=== PATIENT | female | born 1940 | race Caucasian/White ===

== ENCOUNTER 2020-06-23 17:23 | Observation (INO) | payer MEDICARE, SELFPAY ==
--- NOTE | ~2020-06-23 | XR_ITS ---
EXAMINATION: XR chest 1V portable DATE: 06/23/2020 19:32 INDICATION: Hypertension. Dizziness. Syncope. TECHNIQUE: frontal view of the chest was obtained. COMPARISON: Chest radiograph dated 08/21/2018 FINDINGS: The lungs remain hyperexpanded. Linear discoid atelectasis/scarring in the medial right lower lung zo ne. No other airspace opacities, pulmonary edema, pleural effusion or pneumothorax. Heart size is nor mal. Atherosclerotic and tortuous thoracic aorta. Moderate lumbar dextroscoliosis with severe spondyl osis. Combined instrumented anterior and posterior spinal fusion at the lower cervical and upper thor acic spine. Multiple old bilateral rib fractures. IMPRESSION: 1. Linear discoid atelectasis/scarring at the right lower lung zone. No other evident acute cardiopul monary disease. Reviewed, dictated and finalized at location A. IMPRESSION: 1. Linear discoid atelectasis/scarring at the right lower lung zone. No other e vident acute cardiopulmonary disease.
--- NOTE | ~2020-06-23 | US_ITS ---
EXAMINATION: US carotid duplex BI DATE: 06/24/2020 15:28 INDICATION: Syncope. TECHNIQUE: Grayscale, color Doppler, and pulsed Doppler images of the cervical carotid arteries were obtained. The degree of vessel stenosis is placed in one of the following categories: normal, <50%, 5 0-69%, >=70% but less than near-occlusion, near-occlusion, or total occlusion. Note that percent sten osis relative to normal distal artery lumen diameter is indirectly measured from velocity measurement s as described by Darvin, et al. Radiology 2003; 229:340-346. COMPARISON: Ultrasound 07/24/2018 FINDINGS: RIGHT: The right common carotid artery (CCA) peak systolic velocity (PSV) is 72 cm/s. The right internal car otid artery (ICA) PSV is 73 cm/s. The right ICA end-diastolic velocity (EDV) is 22 cm/s. The right IC A/CCA PSV ratio is 1.0. Grayscale and color Doppler images yield an estimate of <50% diameter reducti on from plaque in the ICA. There is antegrade flow in the right vertebral artery. LEFT: The left CCA PSV is 80 cm/s. The left ICA PSV is 56 cm/s. The left ICA EDV is 16 cm/s. The left ICA/C CA PSV ratio is 0.7. Grayscale and color Doppler images yield an estimate of <50% diameter reduction from plaque in the ICA. There is antegrade flow in the left vertebral artery. IMPRESSION: 1. <50% stenosis in the right internal carotid artery. 2. <50% stenosis in the left internal carotid artery. Reviewed, dictated and finalized at location A.
--- NOTE | ~2020-06-23 | CT_ITS ---
EXAMINATION: CT brain wo con DATE: 06/23/2020 19:27 INDICATION: Dizziness TECHNIQUE: Computed tomography (CT) of the head was performed without intravenous contrast. Sagittal and coronal reconstructions were performed. The mA was adjusted according to patient size. Iterative reconstruction technique was employed. The dose-length product was 605.33 mGy-cm. COMPARISON: head CT dated 07/23/2018 FINDINGS: Unchanged chronic infarcts the largest in the right temporal occipital region with additional smaller infarcts in the right frontal and occipital lobes and right cerebellar hemisphere. No acute intracra nial hemorrhage, acute infarction or abnormal extra axial fluid collection. There is mild scattered w leonarda matter hypoattenuation consistent with chronic small vessel ischemic disease. Ventricles are no rmal and symmetric. No mass/mass effect. Changes of bilateral intraocular lens replacement. Tiny bila teral mastoid effusions. The paranasal sinuses are normal. Intracranial calcified cerebral atheroscle rosis is noted. IMPRESSION: 1. No acute intracranial process. 2. 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 3. Moderate scattered white matter hypoattenuation consistent with chronic small vessel ischemic dise ase. Reviewed, dictated and finalized at location A. IMPRESSION: 1. No acute intracranial process. 2. Stable appearance of several scattered small old right cerebral and cerebell ar infarcts. 3. Moderate scattered white matter hypoattenuation consistent with chronic smal l vessel ischemic disease.
--- NOTE | ~2020-06-23 | CT_ITS ---
EXAMINATION: CTA chest PE protocol DATE: 06/23/2020 20:23 INDICATION: Syncope. Elevated d-dimer. TECHNIQUE: Computed tomography (CT) pulmonary angiogram of the chest was performed with 100 mL Omnipa que-350 intravenous contrast. Additional 3D reconstructions utilizing coronal maximum intensity proje ction (MIP) were performed. Automated exposure control and iterative reconstruction technique were em ployed. The dose-length product was 169.60 mGy-cm. COMPARISON: None FINDINGS: Excellent contrast opacification of the pulmonary arteries. There is mild streak artifact from dense contrast in the superior vena cava and right atrium. Mild scattered respiratory motion artifact which does not significantly limit evaluation. No pulmonary embolism. Mild emphysema. Pleural parenchymal scarring at the left apex. Small cluster of small nodules with tree-in-bud appearance in the right up per lobe likely infectious/inflammatory in etiology. Bands of discoid atelectasis/scarring in the janine ateral lower lobes. Heart size is normal. Atherosclerotic coronary artery calcification. No pericardi al effusion. Tortuous thoracic aorta which is normal in caliber with no dissection. No pathologically enlarged thoracic lymphadenopathy. Small sliding-type hiatal hernia. Instrumented anterior and poste rior spinal fusion extending from the midcervical into the upper thoracic spine. Chronic T4 and T7 co mpression fractures. Partially visualized lumbar dextro scoliosis with severe spondylosis. IMPRESSION: 1. No pulmonary embolism. 2. Small region of tree-in-bud opacity in the right upper lobe of indeterminate chronicity which is l ikely infectious/inflammatory in etiology. 3. Mild emphysema. 4. Small sliding-type hiatal hernia. Reviewed, dictated and finalized at location A. IMPRESSION: 1. No pulmonary embolism. 2. Small region of tree-in-bud opacity in the right upper lobe of indeterminate chronicity which is likely infectious/inflammatory in etiology. 3. Mild emphysema. 4. Small sliding-type hiatal hernia.
--- NOTE | 2020-06-23 17:32 | ECG_ITS ---
Measurements Intervals [place] Rate: 50 P: 48 ID: [id number] QRS: -58 QRSD: 94 T: 50 QT: 473 QTc: 433 Interpretive Statements SINUS BRADYCARDIA LEFT ANTERIOR FASCICULAR BLOCK BORDERLINE T WAVE ABNORMALITY- ANTERIOR LEADS BASELINE ARTIFACT- I, II, III, AVR, AVL, AVF, V1-V5 ABNORMAL ECG Electronically Signed On 06-23-2020 19:31:44 CDT by Thomas Peterson D.O.
[2020-06-23 17:37] VITALS: BP 154/95; PULSE 58; RESP 16; TEMP 36.9; O2SAT 100
[2020-06-23 17:43] LABS: Basophils Absolute Auto 0.1 K/mm3 (0.0-0.1); Basophils Percent Auto 0.9 % (0.2-1.2); Eosinophils Absolute Auto 0.1 K/mm3 (0-0.3); Eosinophils Percent Auto 2.4 % (0-4.4); Hematocrit 38.3 % (37.0-47.0); Hemoglobin 12.8 g/dL (12.0-15.0); Immature Granulocyte Absolute 0.01 K/mm3 (0.00-0.031); Immature Granulocyte Percent A 0.2 % (0-0.5); Lymphocytes Absolute Auto 1.86 K/mm3 (0.9-3.2); Lymphocytes Percent Auto 33.6 % (18.3-44.2); Mean Corpuscular HGB Conc 33.4 g/dl (32-36); Mean Corpuscular Hemoglobin 31.1 pg (26-34); Mean Corpuscular Volume 93.2 fl (80-100); Monocytes Absolute Auto 0.4 K/mm3 (0.1-0.6); Neutrophils Percent Auto 54.9 % (45.5-73.1); Platelet Count Result 162 k/mm3 (150-375); Red Blood Count 4.11 M/mm3 (4.2-5.4); Red Cell Distribution Width 12.3 % (11.5-14.5); White Blood Count 5.5 K/mm3 (4.5-10.0)
[2020-06-23 17:53] LABS: Anion Gap 9 mmol/L (8-16); Blood Urea Nitrogen 23 mg/dL (7-17); Calcium 8.9 mg/dL (8.4-10.2); Carbon Dioxide 27 mmol/L (22-30); Chloride 100 mmol/L (98-107); Estimated CRCL calculation 45 ml/min; Estimated Glomerular Filt Rate > 60; Glucose 101 mg/dL (65-105); Potassium 3.8 mmol/L (3.4-5.0); Sodium 136 mmol/L (137-145)
--- NOTE | 2020-06-23 18:53 | ED.GENADULT ---
HPI - General Adult General Chief complaint: Dizziness Stated complaint: AMS Time Seen by Provider: 06/23/20 18:36 Source: patient Mode of arrival: ambulatory Limitations: no limitations History of Present Illness HPI narrative: Patient is a 79-year-old female who presents from assisted living per EMS for evaluation of syncopal episode that occurred while at the dinner table patient was eating later head down was unresponsive for a brief period of time regained her consciousness and presents per EMS noting only mild headache and dizziness as her symptoms. Patient had felt fine in the days preceding patient is accompanied by her son who has been in contact with her. Patient on arrival is in no distress and denies any other pain or complaints. Patient denies injury or trauma Related Data Home Medications Medication Instructions Recorded Confirmed acetaminophen 325 mg capsule 325 mg PO Q6H PRN 07/30/19 01/28/20 alendronate 70 mg tablet 70 mg PO WEEKLY 07/30/19 01/28/20 trazodone 100 mg tablet 100 mg PO DAILY tablet 02/27/20 tiotropium bromide [Spiriva with 1 cap INHALATION DAILY 06/23/20 HandiHaler] Allergies Allergy/AdvReac Type Severity Reaction Status Date / Time No Known Allergies Allergy Verified 06/23/20 18:26 Review of Systems Review of Systems: All systems reviewed & are unremarkable except as noted in HPI and below PMFSH Past Medical History Medical History Essential hypertension Headache Family History Family History (Updated 05/10/18 @ 15:27 by DOCTOR UNKNOWN) Father Family history of lung cancer Social History Social History Smoking status: Former smoker Smoking end date: 09/25/10 Alcohol intake: current Gender identity (if verbalized by the patient): Female Exam Narrative: Exam Narrative: GENERAL Ill-appearing, well-nourished, and in no acute distress. HEAD: Normocephalic, atraumatic. EYES: PERRLA and EOMI. ENT: Nares clear, no rhinorrhea or epistaxis. Mucous membranes moist. Oropharynx without tonsillar hypertrophy exudate or other lesions. NECK: Supple. No adenopathy or masses. No carotid bruits or JVD CHEST: Clear to auscultation. No respiratory distress. No wheezes rales or rhonchi HEART: Regular rate and rhythm. No murmur heard. Normal peripheral pulses. ABDOMEN: Soft, nontender, nondistended EXTREMITIES: Normal range of motion. No edema. SKIN: Warm, dry, no rash. NEURO: No focal deficits. Alert and oriented x3. Cranial nerves II through XII grossly. Normal speech. Motor and sensory intact and symmetrical in the extremities. Cerebellar intact. No pronator drift PSYCH: Normal mood and affect. Course Course Emergency Course: Patient in the room at this time resting comfortably has been hydrated noting slight dizziness patient will be placed in hospital for continued observation on telemetry for her syncope and hydrated no other concerning findings or symptoms at this time patient has remained stable patient and family agree to this plan Consultations Consultation #1: Discussed case with hospitalist who is agreed to accept the patient once hydration only on telemetry no antibiotics at this time Date: 06/23/20 Time: 21:22 Vital Signs Vital signs: Vital Signs Temperature 98.4 F 06/23/20 17:37 Pulse Rate 58 L 06/23/20 17:37 Respiratory Rate 16 06/23/20 17:37 Blood Pressure 154/95 H 06/23/20 17:37 Pulse Oximetry 100 06/23/20 17:37 Temperature 98.4 F 06/23/20 17:37 Pulse Rate 58 L 06/23/20 17:37 Respiratory Rate 16 06/23/20 17:37 Blood Pressure 154/95 H 06/23/20 17:37 Pulse Oximetry 100 06/23/20 17:37 Medical Decision Making [facility] Narrative Medical decision making narrative: patient in the room at this time resting comfortably will be placed in hospital for observation given her syncope patient continues to have dizzi
[2020-06-23] MEDS: SODIUM CHLORIDE 0.9% IV 1,000 ML 999 ML IV CONT (18:55)
[2020-06-23 19:30] LABS: INR 1.1; Prothrombin Time 13.7 Seconds (11.1-14.7)
[2020-06-23 19:31] LABS: Partial Thromboplastin Time 30.7 SECONDS (22.3-36.8)
[2020-06-23 19:33] LABS: D Dimer 0.57 ug/mL (<0.48)
[2020-06-23 19:39] LABS: Troponin I < 0.012 ng/mL (0.000-0.034)
[2020-06-23 20:36] LABS: Add Urine Microscopic? YES; Appearance Urine Cloudy (Clear); Bilirubin Urine Negative (Negative); Blood Urine 1+ (Negative); Color Urine Yellow (Yellow); Glucose Urine UA Negative (Negative); Ketones Urine Negative (Negative); Leukocyte Esterase Ur Trace LEU/UL (Negative); Mucus Urine Rare /lpf; Nitrate Urine Positive (Negative); Protein Urine Negative (Negative); RBC Urine 0-2 /hpf (0-2); Squamous Epithelial Cell Urine Few /hpf (Few)
[2020-06-23 21:17] VITALS: BP 151/77; PULSE 70
[2020-06-23 21:18] VITALS: BP 133/104; BP 136/97; PULSE 81; PULSE 89
[2020-06-23 22:19] LABS: Troponin I < 0.012 ng/mL (0.000-0.034)
[2020-06-23 22:35] VITALS: BP 141/79; PULSE 88; RESP 16; TEMP 36.7; O2SAT 96
--- NOTE | 2020-06-23 22:44 | ADMGEN ---
This patient, Keshia Moy, was admitted to Medical Room 249-. Patient/family oriented to hospital policies and general routines including ID bracelet, bed and alarms, visiting hours, pain management, procedures, bathroom and other care routines, personal items, smoking policy, room service/diet, and visiting hours. Valuables list has been completed. Information on how to activate the Rapid Response Team has been discussed. Patient/Family are encouraged to report perceived risks to care and to ask questions if they do not understand what they are told or what they should do.
[2020-06-23] MEDS: LACTATED RINGERS 1,000 ML 80 ML IV CONT (23:11)
[2020-06-23 23:24] VITALS: BMI 20.4
[2020-06-23 23:25] VITALS: BP 137/67; PULSE 53; RESP 18; TEMP 36.2; O2SAT 98
--- NOTE | 2020-06-23 23:45 | PM.IMHP ---
H&P: HPI History of Present Illness Date/Time: 06/23/20 23:45 Chief complaint: syncope, dehydration Narrative: This is a pleasant 79-year-old female with known history of hypertension who presented to the hospital with a complaint of a brief syncopal event that happened today. Apparently the patient was eating dinner when suddenly she felt dizzy put her head down on the table and her family lowered her to the floor she remembers being lowered to the floor and states that she was only briefly unconscious. She denied any chest pain or shortness of breath prior to her syncopal event. On further questioning she is wondering if she even really passed out. She describes having a similar event about 10 years ago when she was hospitalized which did not result in any significant pathology. Today the patient denies any other associated symptoms such as fever, chills, chest pain, palpitations, shortness of breath, cough, sore throat, abdominal pain, nausea, vomiting, diarrhea, rectal bleeding, or lower extremity swelling. Patient denies any focal neurological deficits such as focal weakness, numbness, or tingling. The patient also denies any recent head trauma, or blurry vision. she has been taking her medications as prescribed and denies any new medications or stopping any home medications. Patient was evaluated in the emergency room today routine labs were obtained which were virtually unremarkable brain CT was unremarkable. We been asked admit the patient hospital for observation for her syncopal event. She has no other complaints this time. Review of Systems Review of Systems: All systems reviewed & are unremarkable except as noted in HPI and below PMFSH Past Medical History Medical History (Updated 06/24/20 @ 03:32 by Noam Cordero MD) Essential hypertension Headache Surgical History Surgical History (Updated 06/23/20 @ 23:48 by Noam Cordero MD) History of neck surgery Social History Social History Smoking packs per day: 0.5 Smoking cigarettes per day: 10.0 Years smoked: 10 Smoking pack-years: 5.00 Smoking status: Former smoker Tobacco type: cigarettes Smoking end date: 09/25/10 Alcohol intake: never Substance use: never Gender identity (if verbalized by the patient): Female Spiritual care concerns: No Meds Home Medications and Allergies Home Medications Medication Instructions Recorded Confirmed Type acetaminophen 325 mg capsule 325 mg PO Q6H PRN 07/30/19 06/23/20 History alendronate 70 mg tablet 70 mg PO WEEKLY 07/30/19 06/23/20 History aspirin 81 mg chewable tablet 81 mg PO DAILY #90 tablet 10/17/19 06/23/20 Rx escitalopram oxalate 10 mg tablet 10 mg PO DAILY #90 tablet 01/16/20 06/23/20 Rx omeprazole 20 mg capsule,delayed 20 mg PO DAILY #90 cap 01/16/20 06/23/20 Rx release amlodipine 5 mg tablet 5 mg PO DAILY #90 tablet 02/12/20 06/23/20 Rx trazodone 100 mg tablet 100 mg PO DAILY tablet 02/27/20 06/23/20 History albuterol sulfate 2.5 mg INHALATION TID PRN 06/23/20 06/23/20 History tiotropium bromide [Spiriva with 1 cap INHALATION DAILY 06/23/20 06/23/20 History HandiHaler] Allergies Allergy/AdvReac Type Severity Reaction Status Date / Time No Known Allergies Allergy Verified 06/23/20 18:26 Vital Signs Vital Signs - 24 hr 06/23/20 17:37 06/23/20 21:17 06/23/20 21:18 Temperature 36.9 C Pulse Rate 58 L 70 89 Respiratory Rate 16 Blood Pressure 154/95 H 151/77 H 136/97 H Pulse Oximetry 100 06/23/20 22:35 06/23/20 23:25 Temperature 36.7 C 36.2 C L Pulse Rate 88 53 L Respiratory Rate 16 18 Blood Pressure 141/79 H 137/67 Pulse Oximetry 96 98 Exam Const: General: cooperative, no acute distress, alert and awake Nutritional Appearance: well nourished Orientation/consciousness: patient oriented x3 HENMT: Head: normal to inspection General nose exam: Normal external nose present F
[2020-06-24] VITALS (8 sets, daily range): BP systolic 136–167; BP diastolic 69–93; PULSE 54–82; RESP 16–18; TEMP 36.2–36.8; O2SAT 96–99
[2020-06-24 06:33] LABS: Basophils Percent Auto 0.9 % (0.2-1.2); Eosinophils Absolute Auto 0.1 K/mm3 (0-0.3); Eosinophils Percent Auto 2.5 % (0-4.4); Hematocrit 38.6 % (37.0-47.0); Hemoglobin 13.2 g/dL (12.0-15.0); Immature Granulocyte Absolute 0.02 K/mm3 (0.00-0.031); Immature Granulocyte Percent A 0.5 % (0-0.5); Lymphocytes Absolute Auto 1.32 K/mm3 (0.9-3.2); Lymphocytes Percent Auto 30.3 % (18.3-44.2); Mean Corpuscular HGB Conc 34.2 g/dl (32-36); Mean Corpuscular Hemoglobin 31.7 pg (26-34); Mean Corpuscular Volume 92.6 fl (80-100); Mean Platelet Volume 9.9 fl (7.4-10.4); Monocytes Absolute Auto 0.4 K/mm3 (0.1-0.6); Monocytes Percent Auto 9.6 % (2.6-8.5); Neutrophils Absolute Auto 2.5 K/mm3 (1.3-6.7); Neutrophils Percent Auto 56.2 % (45.5-73.1); Platelet Count Result 148 k/mm3 (150-375); Red Blood Count 4.17 M/mm3 (4.2-5.4); Red Cell Distribution Width 12.3 % (11.5-14.5); White Blood Count 4.4 K/mm3 (4.5-10.0)
[2020-06-24 06:45] LABS: Alanine Aminotransferase 9 U/L (4-35); Alkaline Phosphatase 54 U/L (38-126); Anion Gap 7 mmol/L (8-16); Aspartate Amino Transferase 20 U/L (14-36); Bilirubin,Total 0.3 mg/dL (0.2-1.3); Blood Urea Nitrogen 14 mg/dL (7-17); Calcium 9.1 mg/dL (8.4-10.2); Carbon Dioxide 29 mmol/L (22-30); Chloride 105 mmol/L (98-107); Estimated CRCL calculation 55 ml/min; Estimated Glomerular Filt Rate > 60; Glucose 93 mg/dL (65-105); Potassium 3.9 mmol/L (3.4-5.0); Sodium 141 mmol/L (137-145)
[2020-06-24] MEDS: ASPIRIN 81 MG CHEWABLE TABLET PO (08:16)
[2020-06-24] MEDS: FAMOTIDINE 20 MG/2 ML VIAL IV PUSH (08:16)
[2020-06-24] MEDS: PANTOPRAZOLE SOD SESQUIHYDRATE 20 MG TAB PO (08:16)
[2020-06-24] MEDS: amLODIPine BESYLATE 5 MG TABLET PO (09:05)
--- NOTE | 2020-06-24 16:43 | PM.DS ---
DS: Admitting Diagnosis Admitting Diagnosis Admitting Diagnosis: syncope, dehydration DS: Discharge Diagnosis Discharge Diagnosis (1) Syncope: Qualifiers: Syncope type: unspecified Qualified Code(s): R55 - Syncope and collapse Code(s): R55 - Syncope and collapse Status: Acute Assessment and Plan: Patient had a brief syncopal episode on 06/23/2020 in which she felt lightheaded while sitting down at dinner and rested her head on table with brief LOC. She denies any history of syncope. Possibly vasovagal, postural, or secondary to dehydration. She was rehydrated with IV fluids. She was monitored on telemetry and fall precautions were in place. Head CT showed no acute findings with evidence of old infarcts, carotid doppler with <50% stenosis in bilateral ICA, and echo with normal EF and grade I diastolic dysfunction with no valvular disease. TSH wnl. Suspect vasovagal syncope. (2) Essential hypertension: Code(s): I10 - Essential (primary) hypertension Status: Chronic Assessment and Plan: Blood pressures stable in the 140-150s. She is not on any antihypertensive agents. (3) Abnormal urinalysis: Code(s): R82.90 - Unspecified abnormal findings in urine Status: Acute Assessment and Plan: UA with positive nitrates and trace leukocyte esterase. She remained asymptomatic and had no signs or symptoms of acute infection. No reflex culture was performed. (4) Orthostatic hypotension: Code(s): I95.1 - Orthostatic hypotension Status: Acute Assessment and Plan: Patient noted to be orthostatic, however was asymptomatic with positional changes. She was given Damir hose and educated extensively about importance of maintaining adequate hydration, avoiding overheating, wearing compression stockings, and fall precautions. She will need to follow up with PCP. DS: Summary Hospital Course Reason for hospitalization: Syncope Hospital Course: Date of admission: 06/23/2020 Date of discharge: 06/24/2020 Keshia Moy is a 79 year old female with a history of hypertension who resides in assisted living who presented to the emergency department on 06/23/2020 after a brief episode of syncope while at the dinner table in which she briefly lost consciousness and afterward complained of dizziness and headache. At presentation, vital signs stable, WBC 5.5, Hgb 12.8, Hct 38.3, plt 162, electrolytes stable, troponin negative, EKG with sinus bradycardia, and head CT as described above. She was admitted to the hospitalist service for further observation. Additional workup pursued as noted. Please see above for further details. Syncope was likely vasovagal in origin. She began feeling much better and was quite eager for discharge. Given her overall stability from medical standpoint, she was determined to no longer require inpatient care. We discussed lifestyle changes including hydration and fall precautions. Her trazodone was stopped due to risk for dizziness and/or syncope and she will need to follow-up on this with her PCP. We discussed worrisome signs and symptoms for which to return, importance of proper hospital follow-up, and she was educated on her medications. She was discharged in hemodynamically stable condition on 06/24/2020. Status at Discharge Functional status at discharge: uses cane/walker Overall status at discharge: patient is progressing back to baseline Time Spent with Patient Time attestation: Total time spent providing and/or coordinating discharge services:45 minutes Time spent: Greater than 30 minutes Exam Narrative: Exam Narrative: Ms. Moy is a well nourished 79-year-old female who is lying semi-recumbent in bed. She appears comfortable and is in NARD. HR 54, BP 150/83, RR 18, T 97.2, 98% on room air Neuro: awake, alert and oriented x4, speech clear, no focal neuro deficits noted, strength 5/5, normal sensation HEENMT: normocephalic, atraumatic, EOMI
--- NOTE | 2020-06-24 23:50 | ECHO_ITS ---
Patient Info Name: Keshia Moy Age: 79 years : 1940 Gender: Female Ht: 64 in Wt: 119 lbs BSA: 1.56 m2 HR: 75 bpm BP: 150 / 83 mmHg Heart Rhythm: Sinus Rhythm Technical Quality: Good Exam Date: 06/24/2020 10:14 AM Exam Location: [facility] Pulmonary Patient Status: Inpatient Admit Date: 06/23/2020 Staff Ordering Physician: Noam Cordero MD Consulting Services Project Manager: Chaka Alvarenga RDCS Attending Provider: Eugenie Cheney PA-C Referring Physician: Gil TERRAZAS; Exam Type: CA echo doppler color flow Study Info Indications R55 - Syncope and collapse Complete two-dimensional, color flow and Doppler transthoracic echocardiogram is performed. History/Risk Factors Syncope and HTN. Summary 1. Complete two-dimensional, color flow and Doppler transthoracic echocardiogram is performed. 2. Left ventricular chamber dimension is normal. 3. Left ventricular systolic function is normal, estimated at 60-65%. 4. The left ventricular diastolic function is grade I diastolic dysfunction. 5. E/e' 17 is elevated. Left Ventricle E/e' 17 is elevated. Left ventricular chamber dimension is normal. Left ventricular systolic function is normal, estimated at 60-65%. The left ventricular diastolic function is grade I diastolic dysfunction. Right Ventricle Right ventricular chamber dimension is normal. Right ventricular systolic function is normal. Left Atria Left atrial chamber dimension is normal. Right Atria Right atrial chamber dimension is normal. Aortic Valve The aortic valve is trileaflet. There is no aortic valve stenosis. There is no aortic valve regurgitation. Pulmonic Valve There is no pulmonic regurgitation. Mitral Valve There is no mitral valve stenosis. There is no mitral valve regurgitation. Tricuspid Valve There is no tricuspid valve regurgitation. Pericardium/Pleural There is no pericardial effusion. Aorta The aortic root size at the sinus of Valsalva is normal. Left Ventricular Outflow Tract Name Value Normal LVOT 2D LVOT Diameter 2.0 cm LVOT Doppler LVOT Peak Gradient 8 mmHg LVOT Mean Gradient 4 mmHg LVOT VTI 33 cm LVOT VTI/AV VTI Ratio 0.9 LVOT Stroke Volume 100 ml LVOT CO 5.5 l/min LVOT CI 3.5 l/min/m2 Mitral Valve Name Value Normal MV Doppler MV Decel Mcclain 298 cm/s2 MV PHT 82 ms MV Area (PHT) 2.7 cm2 4.0-5.0 MV Diastolic Function MV E Peak Velocity 85 cm/s MV A Peak Velocity 97
== END 2020-06-24 18:23 ==
LOC: ANHED 21:46 → ANH2MED 06-24 06:39
PROVIDERS: Emergency Medicine; Emergency Medicine Emergency Medical Services; Admitting Provider Family Medicine; Emergency Provider Emergency Medicine; PCP Internal Medicine; Visit Provider Family Medicine
DX: R55 Syncope and collapse (principal); R42 Dizziness and giddiness; R82.90 Unspecified abnormal findings in urine; I10 Essential (primary) hypertension; R94.31 Abnormal electrocardiogram [ECG] [EKG]; Z86.73 Personal history of transient ischemic attack (TIA), and cerebral infarction without residual deficits; R91.8 Other nonspecific abnormal finding of lung field; J43.9 Emphysema, unspecified; K44.9 Diaphragmatic hernia without obstruction or gangrene; Z87.891 Personal history of nicotine dependence; I65.23 Occlusion and stenosis of bilateral carotid arteries
CPT/HCPCS: 36415; 70450; 71045; 71275; 80048; 80053; 81001; 84443; 84484; 85025; 85380; 85610; 85730; 93005; 93306; 93880; 94640; 96361; 96374; 99285; A9270; G0378; J7030; J7120; Q9967

== ENCOUNTER 2020-09-20 17:03 | Emergency (ER) | payer MEDICARE, SELFPAY ==
[2020-09-20] VITALS (13 sets, daily range): BP systolic 117–131; BP diastolic 69–100; PULSE 56–79; RESP 14–26; TEMP 36.3; O2SAT 96–98
--- NOTE | 2020-09-20 17:32 | ECG_ITS ---
Measurements Intervals [place] Rate: 58 P: 61 [place]: 153 QRS: 66 QRSD: 87 T: 35 QT: 458 QTc: 452 Interpretive Statements SINUS BRADYCARDIA T WAVE ABNORMALITY IN ANTERIOR LEADS- CONSDIER ISCHEMIA ABNORMAL ECG Electronically Signed On 09-21-2020 10:43:07 TSA SCREENER by Thomas Peterson D.O.
[2020-09-20 18:04] LABS: Basophils Percent Auto 0.6 % (0.2-1.2); Eosinophils Absolute Auto 0.1 K/mm3 (0-0.3); Hematocrit 39.1 % (37.0-47.0); Hemoglobin 13.3 g/dL (12.0-15.0); Immature Granulocyte Absolute 0.02 K/mm3 (0.00-0.031); Immature Granulocyte Percent A 0.3 % (0-0.5); Lymphocytes Absolute Auto 1.37 K/mm3 (0.9-3.2); Lymphocytes Percent Auto 19.2 % (18.3-44.2); Mean Corpuscular Hemoglobin 31.4 pg (26-34); Mean Corpuscular Volume 92.4 fl (80-100); Mean Platelet Volume 9.5 fl (7.4-10.4); Monocytes Absolute Auto 0.5 K/mm3 (0.1-0.6); Monocytes Percent Auto 7.4 % (2.6-8.5); Neutrophils Percent Auto 70.5 % (45.5-73.1); Platelet Count Result 163 k/mm3 (150-375); Red Blood Count 4.23 M/mm3 (4.2-5.4); Red Cell Distribution Width 12.3 % (11.5-14.5); White Blood Count 7.1 K/mm3 (4.5-10.0)
--- NOTE | 2020-09-20 18:07 | ED.SYNCOPE ---
HPI - Syncope General Chief Complaint: Syncope Stated Complaint: syncope Time Seen by Provider: 09/20/20 18:04 History of Present Illness HPI narrative: 79 yo female brought in by EMS for syncope. She was sitting playing dominoes when she began to feel light headed. She then briefly lost consciousness. Bood pressure for EMS was initially low. Fluids were started. On my evaluation she reports that she is feeling well and has no complaints. She reports that she had one similar episode in the recent past. At that time she was admitted to the hospital and no cause was found. Related Data Home Medications Medication Instructions Recorded Confirmed acetaminophen 325 mg capsule 325 mg PO Q6H PRN 07/30/19 07/21/20 aspirin 81 mg tablet,delayed 81 mg PO DAILY 07/21/20 07/21/20 release albuterol sulfate 2.5 mg INHALATION TID ml 09/07/20 cholecalciferol (vitamin D3) 25 25 mcg PO DAILY 09/07/20 mcg (1,000 unit) tablet diphenhydramine HCl 25 mg capsule 25 mg PO .qhs PRN cap 09/07/20 melatonin 5 mg tablet 10 mg PO QPM tablet 09/07/20 trazodone 100 mg tablet 100 mg PO .qhs tablet 09/07/20 Allergies Allergy/AdvReac Type Severity Reaction Status Date / Time No Known Allergies Allergy Verified 09/20/20 17:28 Review of Systems Review of Systems: All systems reviewed & are unremarkable except as noted in HPI and below Constitutional: Constitutional: Denies chills, Denies fatigue, Denies fever(s) and Denies weakness ENT: Denies sore throat Cardiovascular: Cardiovascular: Denies chest pain Respiratory: Respiratory: Denies dyspnea Gastrointestinal: Gastrointestinal: Denies abdominal pain and Denies nausea Genitourinary: Genitourinary: Denies hematuria, Reports nocturia and Denies dysuria Musculoskeletal: Musculoskeletal: Denies back pain Neurologic: Denies confusion, Reports syncope, Denies numbness and Denies weakness [facility] Past Medical History Medical History Essential hypertension Headache Surgical History Surgical History History of neck surgery Family History Family History Father Family history of lung cancer Social History Social History Smoking packs per day: 0.5 Smoking cigarettes per day: 10.0 Years smoked: 10 Smoking pack-years: 5.00 Smoking status: Former smoker Tobacco type: cigarettes Smoking end date: 09/25/10 Alcohol intake: never Substance use: never Gender identity (if verbalized by the patient): Female Spiritual care concerns: No Exam Const: General: healthy appearing, no acute distress and alert Orientation/consciousness: patient oriented x3 HENMT: Head: normal to inspection Eyes: Pupils: Equal, round and reactive pupils present EOM: EOMs intact bilaterally Neck: Neck: normal visual inspection Resp: Effort & Inspection: normal respiratory effort Auscultation: clear to auscultation bilaterally, no rales, no rhonchi and no wheezes Cardio: Jugular venous distension: no JVD Rate: regular rate Rhythm: regular rhythm Heart sounds: no murmurs GI: Inspection: non-distended GI Palp: Yes Soft to palpation and No Tenderness to palpation present (GI) Skin: General skin exam: normal color Neuro: General: patient oriented x3, moves all extremities, no focal motor deficits and CN's II-XI intact bilaterally Cranial nerves: Yes Nystagmus not present Speech: normal speech Gait exam (Neuro): Normal gait present Extrem: General: normal to inspection and no edema Psych: Appearance: grossly normal and well kempt Mental Status: mental status grossly normal Affect: normal affect Attitude: cooperative Course Vital Signs Vital signs: Vital Signs Temperature 36.3 C L 09/20/20 17:14 Pulse Rate 65 09/20/20 17:14 Respiratory Rate
[2020-09-20 18:16] LABS: Anion Gap 7 mmol/L (8-16); Blood Urea Nitrogen 28 mg/dL (7-17); Calcium 8.5 mg/dL (8.4-10.2); Carbon Dioxide 28 mmol/L (22-30); Chloride 100 mmol/L (98-107); Estimated Glomerular Filt Rate 43; Glucose 100 mg/dL (65-105); Potassium 3.8 mmol/L (3.4-5.0); Sodium 135 mmol/L (137-145)
--- NOTE | 2020-09-20 18:18 | PC.NURSE ---
Dr. James at bedside for exam.
[2020-09-20] MEDS: SODIUM CHLORIDE 0.9% IV 500 ML 999 ML IV CONT (18:42)
[2020-09-20 18:52] LABS: Basophils Percent Auto 0.3 % (0.2-1.2); Eosinophils Absolute Auto 0.1 K/mm3 (0-0.3); Eosinophils Percent Auto 0.9 % (0-4.4); Hematocrit 40.8 % (37.0-47.0); Hemoglobin 13.7 g/dL (12.0-15.0); Immature Granulocyte Absolute 0.04 K/mm3 (0.00-0.031); Immature Granulocyte Percent A 0.4 % (0-0.5); Lymphocytes Absolute Auto 1.05 K/mm3 (0.9-3.2); Lymphocytes Percent Auto 10.2 % (18.3-44.2); Mean Corpuscular HGB Conc 33.6 g/dl (32-36); Mean Corpuscular Hemoglobin 31.2 pg (26-34); Mean Corpuscular Volume 92.9 fl (80-100); Mean Platelet Volume 9.4 fl (7.4-10.4); Monocytes Absolute Auto 0.6 K/mm3 (0.1-0.6); Monocytes Percent Auto 6.2 % (2.6-8.5); Neutrophils Absolute Auto 8.4 K/mm3 (1.3-6.7); Platelet Count Result 155 k/mm3 (150-375); Red Blood Count 4.39 M/mm3 (4.2-5.4); Red Cell Distribution Width 12.3 % (11.5-14.5); White Blood Count 10.3 K/mm3 (4.5-10.0)
[2020-09-20 19:04] LABS: Alanine Aminotransferase 9 U/L (4-35); Albumin Level 3.6 g/dL (3.5-5.1); Alkaline Phosphatase 64 U/L (38-126); Anion Gap 7 mmol/L (8-16); Aspartate Amino Transferase 21 U/L (14-36); Bilirubin,Total 0.6 mg/dL (0.2-1.3); Blood Urea Nitrogen 29 mg/dL (7-17); Calcium 8.6 mg/dL (8.4-10.2); Carbon Dioxide 27 mmol/L (22-30); Chloride 101 mmol/L (98-107); Estimated Glomerular Filt Rate 48; Glucose 105 mg/dL (65-105); Potassium 4.2 mmol/L (3.4-5.0); Sodium 135 mmol/L (137-145)
[2020-09-20 19:14] LABS: Add Urine Microscopic? YES; Appearance Urine Cloudy (Clear); Bacteria Urine Trace /hpf; Bilirubin Urine 1+ (Negative); Blood Urine Negative (Negative); Color Urine Amber (Yellow); Glucose Urine UA Negative (Negative); Ketones Urine Trace mg/dL (Negative); Leukocyte Esterase Ur 2+ LEU/UL (Negative); Mucus Urine Rare /lpf; Nitrate Urine Positive (Negative); Protein Urine 1+ mg/dL (Negative); Specific Grav Ur 1.018 (1.001-1.035); Squamous Epithelial Cell Urine Few /hpf (Few); WBC Urine 21-30 /hpf
--- NOTE | 2020-09-20 19:15 | PC.NURSE ---
Report to JUAN Eduardo, to continue care.
== END 2020-09-20 20:27 ==
PROVIDERS: Emergency Medicine; Emergency Provider Emergency Medicine; PCP Internal Medicine
DX: N39.0 Urinary tract infection, site not specified (principal); R55 Syncope and collapse; Z79.82 Long term (current) use of aspirin; I10 Essential (primary) hypertension; Z87.891 Personal history of nicotine dependence
CPT/HCPCS: 36415; 80048; 80053; 81001; 85025; 87077; 87086; 87088; 87186; 93005; 96365; 99284; J0696; J7040

== ENCOUNTER 2021-04-27 09:12 | Outpatient (CLI) | payer MEDICARE, SELFPAY ==
[2021-04-27 10:05] LABS: Basophils Percent Auto 0.8 % (0.2-1.2); Eosinophils Absolute Auto 0.1 K/mm3 (0-0.3); Eosinophils Percent Auto 2.1 % (0-4.4); Hematocrit 41.8 % (37.0-47.0); Immature Granulocyte Absolute 0.02 K/mm3 (0.00-0.031); Immature Granulocyte Percent A 0.4 % (0-0.5); Lymphocytes Absolute Auto 1.15 K/mm3 (0.9-3.2); Lymphocytes Percent Auto 22.1 % (18.3-44.2); Mean Corpuscular HGB Conc 33.5 g/dl (32-36); Mean Corpuscular Hemoglobin 31.5 pg (26-34); Mean Corpuscular Volume 93.9 fl (80-100); Mean Platelet Volume 9.7 fl (7.4-10.4); Monocytes Absolute Auto 0.4 K/mm3 (0.1-0.6); Monocytes Percent Auto 7.9 % (2.6-8.5); Neutrophils Absolute Auto 3.5 K/mm3 (1.3-6.7); Neutrophils Percent Auto 66.7 % (45.5-73.1); Platelet Count Result 148 k/mm3 (150-375); Red Blood Count 4.45 M/mm3 (4.2-5.4); Red Cell Distribution Width 12.2 % (11.5-14.5); White Blood Count 5.2 K/mm3 (4.5-10.0)
[2021-04-27 10:19] LABS: Alanine Aminotransferase 14 U/L (4-35); Albumin Level 4.2 g/dL (3.5-5.1); Alkaline Phosphatase 60 U/L (38-126); Anion Gap 12 mmol/L (8-16); Aspartate Amino Transferase 23 U/L (14-36); Bilirubin,Total 0.5 mg/dL (0.2-1.3); Blood Urea Nitrogen 21 mg/dL (7-17); Calcium 9.7 mg/dL (8.4-10.2); Carbon Dioxide 26 mmol/L (22-30); Chloride 97 mmol/L (98-107); Estimated Glomerular Filt Rate > 60; Glucose 90 mg/dL (65-110); Sodium 135 mmol/L (137-145)
[2021-04-27 11:23] LABS: Folic Acid 7.9 ng/mL (2.76->20)
[2021-04-27 14:00] LABS: Add Urine Microscopic? YES; Appearance Urine Clear (Clear); Bilirubin Urine Negative (Negative); Blood Urine Negative (Negative); Color Urine Yellow (Yellow); Glucose Urine UA Negative (Negative); Ketones Urine 1+ mg/dL (Negative); Leukocyte Esterase Ur 2+ LEU/UL (Negative); Nitrate Urine Negative (Negative); Protein Urine Negative (Negative); RBC Urine 0-2 /hpf (0-2); Specific Grav Ur 1.018 (1.001-1.035); WBC Urine 0-3 /hpf
== END 2021-04-27 09:13 | disposition home or self-care (01) ==
PROVIDERS: PCP Internal Medicine; Visit Provider Internal Medicine
DX: R63.0 Anorexia (principal); Z13.0 Encounter for screening for diseases of the blood and blood-forming organs and certain disorders involving the immune mechanism; Z13.228 Encounter for screening for other metabolic disorders; Z13.29 Encounter for screening for other suspected endocrine disorder; I10 Essential (primary) hypertension
CPT/HCPCS: 36415; 80053; 81001; 82607; 82746; 84443; 85025

== ENCOUNTER 2021-05-01 10:01 | Emergency (ER) | payer MEDICARE, SELFPAY ==
--- NOTE | ~2021-05-01 | XR_ITS ---
XR ankle LT min 3V 05/01/2021 11:59 INDICATION: Left ankle pain PROCEDURE: 4 views left ankle COMPARISON: No prior studies for comparison. FINDINGS: Fracture, dislocation or subluxation is not identified. Osteopenia. Ankle mortise and tacke d. Talar dome within normal limits. The soft tissues appear within normal limits. No foreign bodies are identified. IMPRESSION: 1: NO ACUTE BONE OR JOINT ABNORMALITY IDENTIFIED. Reviewed, dictated and finalized at location A.
--- NOTE | ~2021-05-01 | XR_ITS ---
XR foot LT min 3V 05/01/2021 10:14 Indication: Left foot pain Procedure: 4 views left foot Comparison: No prior studies for comparison. Findings: Osteopenia. No fracture, subluxation or dislocation. Lisfranc joint intact. No focal soft t issue abnormality. No foreign bodies. There is osteoarthritis of the first MTP joint. Impression: 1: No acute fracture. Reviewed, dictated and finalized at location A. Impression: 1: No acute fracture.
[2021-05-01 10:15] VITALS: BP 110/70; PULSE 70; RESP 20; TEMP 37.1; O2SAT 98
--- NOTE | 2021-05-01 12:14 | ED.LOWEXIN ---
HPI - Extremity Injury (Lower) General Chief Complaint: Extremity Injury, Lower Stated Complaint: l foot pain Time Seen by Provider: 05/01/21 11:12 History of Present Illness HPI Narrative: Patient is an 80-year-old female who presents ER with left ankle pain. Patient had stood up and was walking when she suffered inversion injury. Caused her fall but she did not strike her head or lose consciousness. No additional injuries. Has some difficulty bearing weight due to pain. No numbness or tingling. Related Data Home Medications Medication Instructions Recorded Confirmed acetaminophen 325 mg capsule 325 mg PO Q6H PRN 07/30/19 04/20/21 aspirin 81 mg tablet,delayed 81 mg PO DAILY 07/21/20 04/20/21 release cholecalciferol (vitamin D3) 25 25 mcg PO DAILY 09/07/20 04/20/21 mcg (1,000 unit) tablet diphenhydramine HCl 25 mg capsule 25 mg PO .qhs PRN cap 09/07/20 04/20/21 melatonin 5 mg tablet 10 mg PO QPM tablet 09/07/20 04/20/21 trazodone 100 mg tablet 100 mg PO .qhs tablet 09/07/20 04/20/21 tobramycin 300 mg/5 mL in 0.225 % 300 mg INHALATION Q12H 04/20/21 04/20/21 sodium chloride for nebulization Allergies Allergy/AdvReac Type Severity Reaction Status Date / Time No Known Allergies Allergy Verified 10/06/20 10:02 Review of Systems Review of Systems: All systems reviewed & are unremarkable except as noted in HPI and below Constitutional: Constitutional: Denies chills and Denies fever(s) Gastrointestinal: Gastrointestinal: Denies abdominal pain, Denies nausea and Denies vomiting Musculoskeletal: Musculoskeletal: Reports arthralgias, Reports joint swelling and Denies muscle cramps Neurologic: Denies focal weakness and Denies numbness [facility] Past Medical History Medical History (Updated 05/01/21 @ 12:17 by Murray Burrows MD) Age-related osteoporosis without current pathological fracture Chronotropic incompetence Dementia in other diseases classified elsewhere without behavioral disturbance Depression 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 Essential hypertension Fatigue Frequent headaches Headache Paresthesia of finger Surgical History Surgical History History of neck surgery Family History Family History Father Family history of lung cancer Social History Social History Smoking packs per day: 0.5 Smoking cigarettes per day: 10.0 Years smoked: 10 Smoking pack-years: 5.00 Smoking status: Former smoker Tobacco type: cigarettes Smoking end date: 09/25/10 Alcohol intake: never Substance use: never Gender identity (if verbalized by the patient): Female Spiritual care concerns: No Exam Narrative: GENERAL: Well-appearing, well-nourished, and in no acute distress. HEAD: Normocephalic, atraumatic. HEART: Regular rate and rhythm. Normal peripheral pulses. EXTREMITIES: Normal range of motion. No edema. Mild tenderness over the left ankle at the ATFL. Minimal swelling. Normal dorsalis pedis and posterior tibial pulses. Sensation intact. SKIN: Warm, dry, no rash. NEURO: Alert and oriented x3. PSYCH: Normal mood and affect. Course Course Emergency Course: Discussed diagnosis with patient and daughter. Discussed need to purchase [id number] ankle splint for support. Bear weight as tolerated. Use home walker. Follow-up with PCP. Vital Signs Vital signs: Vital Signs Temperature 98.8 F 05/01/21 10:15 Pulse Rate 70 05/01/21 10:15 Respiratory Rate 05/01/21 10:15 Blood Pressure 110/70 05/01/21 10:15 Pulse Oximetry 98 05/01/21 10:15 Temperature 98.8 F 05/01/21 10:15 Pulse Rate 70 05/01/21 10:15 Respiratory Rate 20 05/01/21 10:15 Blood Pressure 110/70 05/01/21 10:15 Pulse Oximetry 98 05/01/21 10:15
== END 2021-05-01 12:52 | disposition home or self-care (01) ==
PROVIDERS: Emergency Provider Emergency Medicine; PCP Internal Medicine
DX: S93.402A Sprain of unspecified ligament of left ankle, initial encounter (principal); G30.0 Alzheimer's disease with early onset; F02.80 Dementia in other diseases classified elsewhere, unspecified severity, without behavioral disturbance, psychotic disturbance, mood disturbance, and anxiety; J43.9 Emphysema, unspecified; I10 Essential (primary) hypertension; M81.0 Age-related osteoporosis without current pathological fracture; Z79.82 Long term (current) use of aspirin; W18.39XA Other fall on same level, initial encounter; X50.9XXA Other and unspecified overexertion or strenuous movements or postures, initial encounter; Z87.891 Personal history of nicotine dependence
CPT/HCPCS: 73610; 73630; 99283

== ENCOUNTER → 2021-05-08 11:03 | Outpatient (CLI) | payer MEDICARE, SELFPAY ==
--- NOTE | ~2021-05-08 | MR_ITS ---
EXAMINATION: MR ankle LT wo con DATE: 05/08/2021 12:12 INDICATION: Generalized left ankle pain post fall one week prior. TECHNIQUE: Magnetic resonance imaging (MRI) of the left ankle was performed without intravenous contr ast. Sequences included sagittal, coronal, and axial proton-density weighted fast spin echo without a nd with fat saturation. COMPARISON: Left foot and ankle radiographs dated 05/01/2021 FINDINGS: Medial ankle ligaments: Deep and superficial deltoid ligaments as well as the spring ligament are normal. Lateral ankle ligaments: The anterior and posterior inferior tibiofibular ligaments are normal. Partial tear along both the ta lonavicular and fibular sides of the anterior talofibular ligament. Calcaneofibular and posterior thania ofibular ligaments are normal. Tendons: Achilles tendon is normal. The peroneus longus and brevis tendons are normal. The tibialis anterior a nd extensor hallucis longus and extensor digitorum longus tendons are normal. The tibialis posterior, flexor digitorum longus and flexor hallucis longus tendons are normal. Plantar fascia: Plantar aponeurosis is normal. Bones/other: There is marrow edema along the lateral margin of the cuboid and anterior process of the calcaneus wi thout a discrete fracture line consistent with likely bone contusion. The dorsal calcaneocuboid and b ifurcate ligaments appear to remain intact. Additional marrow edema without discrete fracture line at the neck of the fifth metatarsal. Fluid: Moderate-sized ankle joint effusion with fluid both in the anterior to lesser degree posterior recess es of the joint space. Subcutaneous edema over the dorsum of the fore and midfoot. IMPRESSION: 1. Partial tear of the anterior talofibular ligament. 2. Marrow edema without discrete fracture line likely related to bone contusions along the lateral ma rgin of the cuboid and anterior process of the calcaneus. 3. Additional nonspecific mild marrow edema at the neck of the fifth metatarsal without discrete frac ture which could also represent either bone contusion or stress reaction. 4. Moderate-sized ankle joint effusion. Reviewed, dictated and finalized at location A. IMPRESSION: 1. Partial tear of the anterior talofibular ligament. 2. Marrow edema without discrete fracture line likely related to bone contusion s along the lateral margin of the cuboid and anterior process of the calcaneus. 3. Additional nonspecific mild marrow edema at the neck of the fifth metatarsal without discrete fracture which could also represent either bone contusion or stress reaction. 4. Moderate-sized ankle joint effusion.
== END ==
PROVIDERS: PCP Internal Medicine; Visit Provider Nurse Practitioner
DX: M25.472 Effusion, left ankle (principal)
CPT/HCPCS: 73721

== ENCOUNTER 2023-02-21 10:54 | Outpatient (CLI) | payer MEDICARE, SELFPAY ==
[2023-02-21 14:24] LABS: Alanine Aminotransferase 16 U/L (6-35); Albumin Level 4.4 g/dL (3.5-5.1); Alkaline Phosphatase 61 U/L (38-126); Anion Gap 3 mmol/L (8-16); Aspartate Amino Transferase 31 U/L (14-36); Bilirubin,Total 0.6 mg/dL (0.2-1.3); Blood Urea Nitrogen 24 mg/dL (7-17); Calcium 9.3 mg/dL (8.4-10.2); Carbon Dioxide 36 mmol/L (22-30); Chloride 98 mmol/L (98-107); Cholesterol 194 mg/dL (0-200); Estimated Glomerular Filt Rate > 60; Glucose 97 mg/dL (65-110); HDL Direct 55 mg/dL; Potassium 4.5 mmol/L (3.4-5.0); Sodium 137 mmol/L (137-145); Triglycerides 59 mg/dL (<150)
[2023-02-21 14:25] LABS: Basophils Absolute Auto 0.1 K/mm3 (0.0-0.1); Basophils Percent Auto 0.9 % (0.2-1.2); Eosinophils Absolute Auto 0.1 K/mm3 (0-0.3); Hematocrit 43.4 % (37.0-47.0); Hemoglobin 14.2 g/dL (12.0-15.0); Immature Granulocyte Absolute 0.01 K/mm3 (0.00-0.031); Immature Granulocyte Percent A 0.2 % (0-0.5); Mean Corpuscular HGB Conc 32.7 g/dl (32-36); Mean Corpuscular Hemoglobin 30.8 pg (26-34); Mean Corpuscular Volume 94.1 fl (80-100); Mean Platelet Volume 11.1 fl (7.4-10.4); Monocytes Absolute Auto 0.5 K/mm3 (0.1-0.6); Monocytes Percent Auto 9.8 % (2.6-8.5); Neutrophils Absolute Auto 3.2 K/mm3 (1.3-6.7); Neutrophils Percent Auto 58.1 % (45.5-73.1); Platelet Count Result 164 k/mm3 (150-375); Red Blood Count 4.61 M/mm3 (4.2-5.4); Red Cell Distribution Width 12.5 % (11.5-14.5); White Blood Count 5.5 K/mm3 (4.5-10.0)
[2023-02-21 14:37] LABS: LDL Cholesterol Direct 108 mg/dL
== END 2023-02-21 10:55 | disposition home or self-care (01) ==
LOC: ANHGOSHLAB 10:55
PROVIDERS: PCP Internal Medicine; Visit Provider Internal Medicine
DX: M81.0 Age-related osteoporosis without current pathological fracture (principal); Z13.29 Encounter for screening for other suspected endocrine disorder; Z13.0 Encounter for screening for diseases of the blood and blood-forming organs and certain disorders involving the immune mechanism; Z13.228 Encounter for screening for other metabolic disorders; E55.9 Vitamin D deficiency, unspecified
CPT/HCPCS: 36415; 80053; 80061; 82306; 85025

== ENCOUNTER 2023-11-19 19:21 | Emergency (ER) | payer MEDICARE, SELFPAY ==
--- NOTE | ~2023-11-19 | XR_ITS ---
EXAM: XR hip LT 2V w AP pelvis DATE: 11/19/2023 20:44 HISTORY: fall, L hip pain . COMPARISON: None available. FINDINGS: Normal mineralization. No fracture or dislocation. No lytic or blastic lesion. Lumbar dege nerative disc disease. Mild bilateral hip osteoarthritis. No erosion or periosteal change. Atheroscle rotic vascular calcifications. IMPRESSION: No acute osseous finding in the pelvis or left hip. Reviewed, dictated and finalized at location K. TREATING BLUER
--- NOTE | ~2023-11-19 | CT_ITS ---
EXAMINATION: CT brain wo con DATE: 11/19/2023 20:40 INDICATION: fall; hit head . TECHNIQUE: Computed tomography (CT) of the head was performed without intravenous contrast. The mA wa s adjusted according to patient size. Iterative reconstruction technique was employed. The dose-lengt h product was 681.00 mGy-cm. COMPARISON: 06/23/2020. FINDINGS: No acute intracranial hemorrhage or extra-axial fluid collection. No hydrocephalus, mass, or herniation. No acute ischemic infarct. Unremarkable dural venous sinus attenuation. No acute osseous abnormality. Aerated secretions in the left maxillary sinus, bilateral mastoid effusions, the remaining aerated sp aces are clear. Moderate atrophy and chronic white matter change. Atherosclerotic intracranial calcification. Bilater al lens replacements. Chronic infarcts in the right posterior frontal, right temporal parietal, and r ight occipital lobes as well as the bilateral cerebellar hemispheres. IMPRESSION: No acute intracranial process. Aerated secretions in the left maxillary sinus may represent acute sinusitis or minimal mucosal hemor rhage in the setting of trauma. Reviewed, dictated and finalized at location K. 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 Aerated secretions in the left maxillary sinus may represent acute sinusitis or minimal mucosal hemorrhage in the setting of trauma.
[2023-11-19 19:24] VITALS: BP 194/81; PULSE 68; RESP 20; TEMP 36.6; O2SAT 100
--- NOTE | 2023-11-19 20:06 | ED.FALL ---
HPI - Fall General Chief Complaint: Fall Stated Complaint: EAR LAC & L HIP PAIN S/P FALL Time Seen by Provider: 11/19/23 19:38 Source: patient Mode of arrival: ambulatory Limitations: no limitations History of Present Illness HPI Narrative: 82 yo was playing cards and stood up to try to get to her walker but slipped. no loss of consciousness, not on anticoagulation. Denies head pain or neck pain. Triage initially indicates right hip pain but it is left hip that patient states is sore. She also sustained a laceration to her left ear which is painful and has dried blood. Related Data Home Medications Medication Instructions Recorded Confirmed acetaminophen 325 mg capsule 325 mg PO Q6H PRN Pain (Scale 07/30/19 02/21/23 Score 1-3) aspirin 81 mg tablet,delayed 81 mg PO DAILY 07/21/20 02/21/23 release (Adult Aspirin Regimen) cholecalciferol (vitamin D3) 25 25 mcg PO DAILY 09/07/20 02/21/23 mcg (1,000 unit) tablet diphenhydramine HCl 25 mg capsule 25 mg PO .PRN PRN Sleep 02/23/23 02/21/23 (Allergy Relief (diphenhydramine)) melatonin 5 mg tablet 5 mg PO QPM 02/23/23 02/21/23 Allergies Allergy/AdvReac Type Severity Reaction Status Date / Time No Known Allergies Allergy Verified 02/21/23 10:17 [facility] Past Medical History Medical History (Updated 11/20/23 @ 00:00 by Kane Hunter) Age-related osteoporosis without current pathological fracture Chronotropic incompetence CVA (cerebral vascular accident) Dementia in other diseases classified elsewhere without behavioral disturbance Depression 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 Essential hypertension Fatigue Frequent headaches Headache HTN (hypertension) Insomnia Osteoporosis Paresthesia of finger Vitamin D deficiency Surgical History Surgical History History of neck surgery Family History Family History Father Family history of lung cancer Hypertension Mother Hypertension Depression Social History Social History (Updated 11/19/23 @ 20:40 by Lauren Macias MD) Smoking packs per day: 0.5 Smoking cigarettes per day: 10.0 Years smoked: 10 Smoking pack-years: 5.00 Smoking status: Former smoker Tobacco type: cigarettes Smoking end date: 09/25/10 Alcohol intake: current Substance use: never Lack of Transportation: No Lack of Food: Sometimes True Current Housing: I Have Housing Concerned About Future Housing: No Difficulty Paying Gas/Electric Bills: No Difficulty Paying for Meds: No Currently Unemployed: No Education: High School Diploma/GED Difficulty w/ Childcare or Family Care: No Living arrangements: assisted living Additional living arrangements comments: [facility] 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 HEAD: Normocephalic, atraumatic. EYES: Non injected, non icteric ENT: Nares clear, no rhinorrhea or epistaxis. No broken/loose dentition. No hemotympanum on the left; there is dried blood in the middle ear canal and in the pinna. 1cm laceration at the cavum conchae ; not through and through. Does not involve cartilage. NECK: Supple. Normal ROM. No C spine tenderness. CHEST: Speaking in complete sentences. . No respiratory distress. HEART: Regular rate and rhythm. . ABDOMEN: Soft, nondistended. EXTREMITIES: Normal range of motion. patient demonstrates bilateral hip flexion as staff attempts to assist with removal of paints. Pelvis stable to compression. No bony tenderness/deformity of extremities. No edema. SKIN: Warm,
[2023-11-19] MEDS: ACETAMINOPHEN 500 MG TABLET 1000 MG PO (20:18)
[2023-11-19 20:20] VITALS: BP 159/78; PULSE 73; RESP 17
[2023-11-19 22:10] VITALS: BP 155/77; PULSE 71; RESP 17; TEMP 36.6; O2SAT 98
--- NOTE | 2023-11-19 22:18 | PC.NURSE ---
Pt son Alexey was called for transportation upon d/c, he states he is not local and not available to provide transportation, however, to try contacting his brother, Francisco Javier. Francisco Javier's phone number was attempted but he was unavailable and voicemail was full, could not leave a message.
--- NOTE | 2023-11-19 22:35 | PC.NURSE ---
report given to [facility] for pt d/c
== END 2023-11-19 23:02 ==
PROVIDERS: Emergency Provider Student in an Organized Health Care Education/Training Program; PCP Internal Medicine
DX: S01.312A Laceration without foreign body of left ear, initial encounter (principal); S79.912A Unspecified injury of left hip, initial encounter; G30.0 Alzheimer's disease with early onset; F02.80 Dementia in other diseases classified elsewhere, unspecified severity, without behavioral disturbance, psychotic disturbance, mood disturbance, and anxiety; J43.9 Emphysema, unspecified; I10 Essential (primary) hypertension; E55.9 Vitamin D deficiency, unspecified; M81.0 Age-related osteoporosis without current pathological fracture; Z86.73 Personal history of transient ischemic attack (TIA), and cerebral infarction without residual deficits; Z87.891 Personal history of nicotine dependence; Z79.82 Long term (current) use of aspirin; W01.0XXA Fall on same level from slipping, tripping and stumbling without subsequent striking against object, initial encounter
CPT/HCPCS: 12011; 70450; 73502; 99284; A9270

== ENCOUNTER 2023-12-28 12:59 | Emergency (ER) | payer MEDICARE, MEDICAID, SELFPAY ==
[2023-12-28 13:00] VITALS: BP 163/91; PULSE 70; RESP 24; TEMP 36.4; O2SAT 98
--- NOTE | 2023-12-28 13:19 | ECG_ITS ---
Measurements Intervals [place] Rate: 64 P: 71 OH: 158 QRS: 68 QRSD: 90 T: 31 QT: 420 QTc: 434 Interpretive Statements SINUS RHYTHM NONSPECIFIC T-WAVE ABNORMALITY BORDERLINE ECG COMPARED TO ECG 09/20/2020 17:12:43 NO SIGNIFICANT DIFFERENCE Electronically Signed On 12-29-2023 7:35:21 CDT by Feliberto Luis M.D.
[2023-12-28 13:51] LABS: Basophils Absolute Auto 0.1 K/mm3 (0.0-0.1); Basophils Percent Auto 1.1 % (0.2-1.2); Eosinophils Absolute Auto 0.1 K/mm3 (0-0.3); Eosinophils Percent Auto 1.7 % (0-4.4); Hematocrit 40.1 % (37.0-47.0); Hemoglobin 12.9 g/dL (12.0-15.0); Immature Granulocyte Absolute 0.01 K/mm3 (0.00-0.031); Immature Granulocyte Percent A 0.2 % (0-0.5); Lymphocytes Absolute Auto 1.15 K/mm3 (0.9-3.2); Lymphocytes Percent Auto 25.1 % (18.3-44.2); Mean Corpuscular HGB Conc 32.2 g/dl (32-36); Mean Corpuscular Hemoglobin 31.5 pg (26-34); Mean Corpuscular Volume 97.8 fl (80-100); Mean Platelet Volume 9.6 fl (7.4-10.4); Monocytes Absolute Auto 0.5 K/mm3 (0.1-0.6); Monocytes Percent Auto 11.3 % (2.6-8.5); Neutrophils Absolute Auto 2.8 K/mm3 (1.3-6.7); Neutrophils Percent Auto 60.6 % (45.5-73.1); Platelet Count Result 169 k/mm3 (150-375); Red Cell Distribution Width 12.5 % (11.5-14.5); White Blood Count 4.6 K/mm3 (4.5-10.0)
[2023-12-28 14:03] LABS: Alanine Aminotransferase 18 U/L (6-35); Alkaline Phosphatase 83 U/L (38-126); Anion Gap 1 mmol/L (4-12); Aspartate Amino Transferase 23 U/L (14-36); Bilirubin,Total 0.5 mg/dL (0.2-1.3); Blood Urea Nitrogen 23 mg/dL (7-17); Calcium 9.2 mg/dL (8.4-10.2); Carbon Dioxide 32 mmol/L (22-30); Chloride 102 mmol/L (98-107); Estimated CRCL calculation 50 ml/min; Estimated Glomerular Filt Rate > 60; Glucose 107 mg/dL (65-110); Potassium 4.3 mmol/L (3.4-5.0); Sodium 135 mmol/L (137-145)
--- NOTE | 2023-12-28 14:52 | ED.GENADULT ---
HPI - General Adult General Chief complaint: Dizziness Stated complaint: dizzy, htn Time Seen by Provider: 12/28/23 13:14 History of Present Illness HPI narrative: Patient is an 82-year-old female who presents ER due to elevated blood pressures at her halfway. Apparently her diastolic blood pressure was 130 and they could not obtain a systolic pressure. there are reports that she may have been dizzy. Patient currently denies any dizziness while she is at the halfway. She had no chest pain. She reports she felt just fine. She has no other complaints at this time. Her blood pressure upon arrival was in the 160s. She had no critical blood pressure levels for EMS. Patient does have Alzheimer's which limits the history. Related Data Home Medications Medication Instructions Recorded Confirmed aspirin 81 mg tablet,delayed 81 mg PO DAILY 07/21/20 11/28/23 release (Adult Aspirin Regimen) cholecalciferol (vitamin D3) 25 25 mcg PO DAILY 09/07/20 11/28/23 mcg (1,000 unit) tablet diphenhydramine HCl 25 mg capsule 25 mg PO .PRN PRN Sleep 02/23/23 11/28/23 (Allergy Relief (diphenhydramine)) melatonin 5 mg tablet 5 mg PO QPM 02/23/23 11/28/23 Allergies Allergy/AdvReac Type Severity Reaction Status Date / Time No Known Allergies Allergy Verified 11/28/23 11:11 Review of Systems Review of Systems: All systems reviewed & are unremarkable except as noted in HPI and below Constitutional: Constitutional: Reports no additional constitutional complaints ENT: Reports system reviewed and no additional complaints, except as documented Cardiovascular: Cardiovascular: Reports no additional cardiovascular complaints Respiratory: Respiratory: Reports no additional respiratory complaints Gastrointestinal: Gastrointestinal: Reports no additional gastrointestinal complaints [facility] Past Medical History Medical History Age-related osteoporosis without current pathological fracture Chronotropic incompetence CVA (cerebral vascular accident) Dementia in other diseases classified elsewhere without behavioral disturbance Depression 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 Essential hypertension Fatigue Frequent headaches Headache HTN (hypertension) Insomnia Osteoporosis Paresthesia of finger Vitamin D deficiency Surgical History Surgical History History of neck surgery Family History Family History Father Family history of lung cancer Hypertension Mother Hypertension Depression Social History Social History Smoking packs per day: 0.5 Smoking cigarettes per day: 10.0 Years smoked: 10 Smoking pack-years: 5.00 Smoking status: Former smoker Tobacco type: cigarettes Smoking end date: 09/25/10 Alcohol intake: current Substance use: never Lack of Transportation: No Lack of Food: Sometimes True Current Housing: I Have Housing Concerned About Future Housing: No Difficulty Paying Gas/Electric Bills: No Difficulty Paying for Meds: No Currently Unemployed: No Education: High School Diploma/GED Difficulty w/ Childcare or Family Care: No Living arrangements: assisted living Additional living arrangements comments: [facility] 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 HEAD: Normocephalic, atraumatic. ENT: Mucous membranes moist. CHEST: Clear to auscultation. No respiratory distress. HEART: Regul
[2023-12-28 15:16] VITALS: BP 147/89; PULSE 74; RESP 18; O2SAT 98
== END 2023-12-28 15:36 ==
PROVIDERS: Emergency Provider Emergency Medicine; PCP Internal Medicine
DX: I10 Essential (primary) hypertension (principal); J43.9 Emphysema, unspecified; G30.0 Alzheimer's disease with early onset; F02.80 Dementia in other diseases classified elsewhere, unspecified severity, without behavioral disturbance, psychotic disturbance, mood disturbance, and anxiety; E55.9 Vitamin D deficiency, unspecified; M81.0 Age-related osteoporosis without current pathological fracture; Z86.73 Personal history of transient ischemic attack (TIA), and cerebral infarction without residual deficits; Z87.891 Personal history of nicotine dependence; Z79.82 Long term (current) use of aspirin
CPT/HCPCS: 36415; 80053; 85025; 93005; 99283

== ENCOUNTER 2024-01-14 14:09 | Emergency (ER) | payer MEDICARE, MEDICAID, SELFPAY ==
[2024-01-14 14:19] VITALS: BP 201/107; PULSE 71; RESP 29; TEMP 36.6; O2SAT 96
--- NOTE | 2024-01-14 14:28 | ECG_ITS ---
SEE SCANNED COPY FOR CONFIRMED REPORT MTDD
[2024-01-14 14:42] LABS: Basophils Absolute Auto 0.1 K/mm3 (0.0-0.1); Basophils Percent Auto 1.1 % (0.2-1.2); Eosinophils Absolute Auto 0.1 K/mm3 (0-0.3); Eosinophils Percent Auto 1.8 % (0-4.4); Hematocrit 37.7 % (37.0-47.0); Hemoglobin 12.1 g/dL (12.0-15.0); Immature Granulocyte Absolute 0.01 K/mm3 (0.00-0.031); Immature Granulocyte Percent A 0.2 % (0-0.5); Lymphocytes Absolute Auto 1.34 K/mm3 (0.9-3.2); Lymphocytes Percent Auto 23.8 % (18.3-44.2); Mean Corpuscular HGB Conc 32.1 g/dl (32-36); Mean Corpuscular Volume 96.7 fl (80-100); Mean Platelet Volume 10.2 fl (7.4-10.4); Monocytes Absolute Auto 0.6 K/mm3 (0.1-0.6); Neutrophils Absolute Auto 3.5 K/mm3 (1.3-6.7); Neutrophils Percent Auto 62.1 % (45.5-73.1); Platelet Count Result 167 k/mm3 (150-375); Red Cell Distribution Width 12.5 % (11.5-14.5); White Blood Count 5.6 K/mm3 (4.5-10.0)
[2024-01-14 14:44] VITALS: BP 203/95; PULSE 126
[2024-01-14 14:45] VITALS: BP 203/95; BP 230/131; PULSE 157; PULSE 77; RESP 18; O2SAT 100
[2024-01-14 14:47] VITALS: BP 221/108; PULSE 143
[2024-01-14 14:52] LABS: Alanine Aminotransferase 15 U/L (6-35); Albumin Level 4.3 g/dL (3.5-5.1); Alkaline Phosphatase 69 U/L (38-126); Anion Gap 7 mmol/L (4-12); Aspartate Amino Transferase 23 U/L (14-36); Bilirubin,Total 0.5 mg/dL (0.2-1.3); Blood Urea Nitrogen 24 mg/dL (7-17); Calcium 9.6 mg/dL (8.4-10.2); Carbon Dioxide 26 mmol/L (22-30); Chloride 103 mmol/L (98-107); Estimated CRCL calculation 48 ml/min; Estimated Glomerular Filt Rate > 60; Glucose 98 mg/dL (65-110); Potassium 4.5 mmol/L (3.4-5.0); Sodium 136 mmol/L (137-145)
[2024-01-14 15:02] VITALS: BP 212/103; PULSE 77; RESP 21; O2SAT 100
--- NOTE | 2024-01-14 15:37 | ED.GENADULT ---
HPI - General Adult General Chief complaint: Dizziness Stated complaint: symptomatic hypertension Time Seen by Provider: 01/14/24 15:19 History of Present Illness HPI narrative: Patient with history of hypertension presents here after being found to be hypertensive. Per patient and son at bedside has been having high blood pressure that they are trying to adjust her medications for. Denies any symptoms other than very minimal headache. No chest pain, shortness of breath, focal numbness or weakness. Related Data Home Medications Medication Instructions Recorded Confirmed aspirin 81 mg tablet,delayed 81 mg PO DAILY 07/21/20 11/28/23 release (Adult Aspirin Regimen) cholecalciferol (vitamin D3) 25 25 mcg PO DAILY 09/07/20 11/28/23 mcg (1,000 unit) tablet diphenhydramine HCl 25 mg capsule 25 mg PO .PRN PRN Sleep 02/23/23 11/28/23 (Allergy Relief (diphenhydramine)) melatonin 5 mg tablet 5 mg PO QPM 02/23/23 11/28/23 Allergies Allergy/AdvReac Type Severity Reaction Status Date / Time No Known Allergies Allergy Verified 11/28/23 11:11 Review of Systems Review of Systems: All systems reviewed & are unremarkable except as noted in HPI and below PMFSH Past Medical History Medical History Age-related osteoporosis without current pathological fracture Chronotropic incompetence CVA (cerebral vascular accident) Dementia in other diseases classified elsewhere without behavioral disturbance Depression 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 Essential hypertension Fatigue Frequent headaches Headache HTN (hypertension) Insomnia Osteoporosis Paresthesia of finger Vitamin D deficiency Surgical History Surgical History History of neck surgery Family History Family History Father Family history of lung cancer Hypertension Mother Hypertension Depression Social History Social History Smoking packs per day: 0.5 Smoking cigarettes per day: 10.0 Years smoked: 10 Smoking pack-years: 5.00 Smoking status: Former smoker Tobacco type: cigarettes Smoking end date: 09/25/10 Alcohol intake: current Substance use: never Lack of Transportation: No Lack of Food: Sometimes True Current Housing: I Have Housing Concerned About Future Housing: No Difficulty Paying Gas/Electric Bills: No Difficulty Paying for Meds: No Currently Unemployed: No Education: High School Diploma/GED Difficulty w/ Childcare or Family Care: No Living arrangements: assisted living Additional living arrangements comments: [facility] [place] Occupation/Education: retired 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 EYES: EOMI, conjunctiva normal ENT: Hearing grossly intact LUNGS: Nonlabored breathing. HEART: [Regular rate and rhythm] ABD: [Soft], [nontender to palpation] EXT: Normal range of motion SKIN: [No rashes or lesions.] NEURO: [Alert and oriented x 3. No gross focal sensory or strength deficits.] Clear speech. No facial asymmetry. PSYCH: Normal affect Course Vital Signs Vital signs: Vital Signs Temperature 98 F 01/14/24 14:19 Pulse Rate 71 01/14/24 14:19 Respiratory Rate 29 H 01/14/24 14:19 Blood Pressure 201/107 H 01/14/24 14:19 Pulse Oximetry 96 01/14/24 14:19 Oxygen Delivery Room Air 01/14/24 14:19 Temper
[2024-01-14] MEDS: amLODIPine BESYLATE 5 MG TABLET 10 MG PO (16:03)
[2024-01-14 16:20] VITALS: BP 203/95; PULSE 80; RESP 20; TEMP 36.6; O2SAT 98
== END 2024-01-14 16:20 ==
LOC: ANHED 15:49
PROVIDERS: Emergency Provider Emergency Medicine; PCP Internal Medicine
DX: I10 Essential (primary) hypertension (principal); G30.0 Alzheimer's disease with early onset; F02.80 Dementia in other diseases classified elsewhere, unspecified severity, without behavioral disturbance, psychotic disturbance, mood disturbance, and anxiety; J43.9 Emphysema, unspecified; E55.9 Vitamin D deficiency, unspecified; M81.0 Age-related osteoporosis without current pathological fracture; Z86.73 Personal history of transient ischemic attack (TIA), and cerebral infarction without residual deficits; Z87.891 Personal history of nicotine dependence; Z79.82 Long term (current) use of aspirin
CPT/HCPCS: 36415; 80053; 85025; 93005; 99284; A9270

== ENCOUNTER 2024-06-29 11:14 | Emergency (ER) | payer MEDICARE, MEDICAID, SELFPAY ==
[2024-06-29] VITALS (19 sets, daily range): BP systolic 188–217; BP diastolic 90–105; PULSE 72–101; RESP 16–25; TEMP 36.6–36.7; O2SAT 95–100
--- NOTE | ~2024-06-29 | CT_ITS ---
EXAMINATION: CT brain wo con DATE: 06/29/2024 12:32 INDICATION: Head injury post fall TECHNIQUE: Computed tomography (CT) of the head was performed without intravenous contrast. Sagittal and coronal reconstructions were performed. The mA was adjusted according to patient size. Iterative reconstruction technique was employed. The dose-length product was 605.33 mGy-cm. COMPARISON: head CT dated 11/19/2023 FINDINGS: No fracture. Unchanged encephalomalacia consistent chronic infarcts, the largest in the right tempora l occipital region with additional small infarcts in the right frontal and occipital lobes. Additiona l bilateral cerebellar infarcts, left larger than right. No acute intracranial hemorrhage, acute infa rction or abnormal extra axial fluid collection. There is moderate scattered white matter hypoattenua tion consistent with chronic small vessel ischemic disease. Symmetric prominence of the sulci consist ent with mild age-appropriate diffuse cerebral volume loss. Ventricles remain normal and symmetric. N o mass/mass effect. Changes of bilateral intraocular lens replacement. Chronic small right and tiny l eft mastoid effusions. Paranasal sinuses are unremarkable. Intracranial calcified cerebral atheroscle rosis is noted. IMPRESSION: 1. No fracture or acute intracranial process. 2. Stable appearance of several scattered small right cerebral and bilateral cerebellar infarcts. 3. Age-related changes including mild diffuse volume loss and moderate scattered white matter hypoatt enuation consistent with chronic small vessel ischemic disease. Reviewed, dictated and finalized at location A. IMPRESSION: 1. No fracture or acute intracranial process. 2. Stable appearance of several scattered small right cerebral and bilateral ce rebellar infarcts. 3. Age-related changes including mild diffuse volume loss and moderate scattere d white matter hypoattenuation consistent with chronic small vessel ischemic di sease.
--- NOTE | ~2024-06-29 | CT_ITS ---
EXAMINATION: CT cervical spine wo con DATE: 06/29/2024 12:32 INDICATION: Fall with head injury TECHNIQUE: Computed tomography (CT) of the cervical spine was performed without intravenous contrast. Automated exposure control and iterative reconstruction technique were employed. The dose-length pro duct was 178.87 mGy-cm. COMPARISON: None FINDINGS: 15 degrees cervicothoracic dextroscoliosis. No acute fracture. Straightening of the normal cervical l ordosis. Postoperative change of an instrumented C6-T2 anterior spinal fusion with C7-T1 corpectomies with interbody fusion device and anterior plate and screw fixation extending from C6 to T2. There is a posterior spinal fusion with bilateral vertical aditi and compared C4-C6 lateral mass screws and janine ateral T2 and T3 pedicle screws. The enhancing tissue results in streak artifact which limits evaluat ion of some of the adjacent bone and soft tissues. Unfused cervical vertebral body heights are normal . There is chronic appearing mild superior endplate compression fracture with mild anterior wedging a t T4. Severe disc height loss at C3-C4, moderate disc height loss at C5-C6 and mild disc height loss at C4-C5. Small posterior endplate osteophytes result in mild central canal stenosis at C3-C4. There is mild to moderate uncovertebral osteoarthritis bilaterally in the mid to upper cervical spine. Ther e is severe left-sided and moderate right-sided facet osteoarthritis at C2-C3 and C3-C4. Moderate kumar ral foraminal stenosis on the left at C3-C4 and on the right at C4-C5. There is mild neural from sten osis at a few of the remaining cervical levels. Atherosclerotic calcifications at the bilateral carot id bulbs. There is left supraclavicular lymphadenopathy, the largest measuring 3.0 x 1.8 cm which is concerning for lymphoma or metastatic disease. Goiter. Cervical soft tissues are otherwise unremarkab le. IMPRESSION: 1. 15 degrees cervicothoracic dextroscoliosis with instrumented C6-T2 anterior spinal fusion and C4-T 3 posterior spinal fusion and severe cervical spondylosis. No acute osseous abnormality. 2. Left supraclavicular lymphadenopathy which raises concern for lymphoma or metastatic disease. Woul d recommend ultrasound-guided biopsy and chest CT for further evaluation. 3. Goiter. Reviewed, dictated and finalized at location A. IMPRESSION: 1. 15 degrees cervicothoracic dextroscoliosis with instrumented C6-T2 anterior spinal fusion and C4-T3 posterior spinal fusion and severe cervical spondylosis . No acute osseous abnormality. 2. Left supraclavicular lymphadenopathy which raises concern for lymphoma or me tastatic disease. Would recommend ultrasound-guided biopsy and chest CT for fur ther evaluation. 3. Goiter.
[2024-06-29] MEDS: amLODIPine BESYLATE 10 MG TABLET PO (12:11)
--- NOTE | 2024-06-29 14:03 | PC.NURSE ---
berhanewick applied for patient comfort
--- NOTE | 2024-06-29 14:17 | ED.FALL ---
HPI - Fall General Chief Complaint: Fall Stated Complaint: fall Time Seen by Provider: 06/29/24 11:33 Source: patient, family and EMS Mode of arrival: EMS Limitations: no limitations History of Present Illness HPI Narrative: This is an 83-year-old female, with hypertension, brought in by EMS from her intermediate after striking her head on a wall. The patient's grandson, at bedside notes he walked into the patient's bathroom and startled her, resulting in her striking the back of her head on the bathroom wall. The patient did not lose consciousness or otherwise fall. She complains of mild tenderness to the posterior aspect of the scalp Related Data Home Medications Medication Instructions Recorded Confirmed aspirin 81 mg tablet,delayed 81 mg PO DAILY 07/21/20 05/14/24 release (Adult Aspirin Regimen) cholecalciferol (vitamin D3) 25 25 mcg PO DAILY 09/07/20 05/14/24 mcg (1,000 unit) tablet diphenhydramine HCl 25 mg capsule 25 mg PO .PRN PRN Sleep 02/23/23 05/14/24 (Allergy Relief (diphenhydramine)) melatonin 5 mg tablet 5 mg PO QPM 02/23/23 05/14/24 acetaminophen 325 mg tablet 325 mg PO Q6H PRN 02/06/24 05/14/24 Allergies Allergy/AdvReac Type Severity Reaction Status Date / Time No Known Allergies Allergy Verified 06/29/24 11:24 Review of Systems Review of Systems: All systems reviewed & are unremarkable except as noted in HPI and below PMFSH Past Medical History Medical History (Updated 06/29/24 @ 14:19 by Nas Noel MD) Age-related osteoporosis without current pathological fracture Chronotropic incompetence CVA (cerebral vascular accident) Dementia Dementia in other diseases classified elsewhere without behavioral disturbance Depression Dizziness 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 Essential hypertension Fatigue Frequent headaches Headache HTN (hypertension) Insomnia Osteoporosis Paresthesia of finger Vitamin D deficiency Surgical History Surgical History History of neck surgery Family History Family History Father Family history of lung cancer Hypertension Mother Hypertension Depression Social History Social History Smoking packs per day: 0.5 Smoking cigarettes per day: 10.0 Years smoked: 10 Smoking pack-years: 5.00 Smoking status: Former smoker Tobacco type: cigarettes Smoking end date: 09/25/10 Alcohol intake: current Substance use: never Do You Feel Safe in your Home?: Yes Lack of Transportation: No Lack of Food: Sometimes True Current Housing: I Have Housing Concerned About Future Housing: No Difficulty Paying Gas/Electric Bills: No Difficulty Paying for Meds: No Currently Unemployed: No Education: High School Diploma/GED Difficulty w/ Childcare or Family Care: No Living arrangements: assisted living Additional living arrangements comments: [facility] Occupation/Education: retired 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 The patient's blood pressure improved to 190/103 with p.o. amlodipine. Chart review shows she has repeatedly been in the 190s previously. In the absence of signs or symptoms concerning for hypertensive emergency, we will discharge. I discussed the findings and recommendations with the patient and her family. Discussed return and emergency precautions including signs/symptoms of intracranial hemorrhage and focal neural deficit. The patient and her family voice
== END 2024-06-29 14:46 ==
PROVIDERS: Emergency Provider Preventive Medicine Aerospace Medicine; PCP Internal Medicine
DX: S00.01XA Abrasion of scalp, initial encounter (principal); W22.8XXA Striking against or struck by other objects, initial encounter; I10 Essential (primary) hypertension; J43.9 Emphysema, unspecified; F32.A Depression, unspecified; G30.0 Alzheimer's disease with early onset; F02.80 Dementia in other diseases classified elsewhere, unspecified severity, without behavioral disturbance, psychotic disturbance, mood disturbance, and anxiety; M81.0 Age-related osteoporosis without current pathological fracture; E55.9 Vitamin D deficiency, unspecified; Z86.73 Personal history of transient ischemic attack (TIA), and cerebral infarction without residual deficits; Z79.82 Long term (current) use of aspirin; Z87.891 Personal history of nicotine dependence
CPT/HCPCS: 70450; 72125; 99284; A9270

== ENCOUNTER 2024-07-04 20:39 | Emergency (ER) | payer MEDICARE, MEDICAID, SELFPAY ==
--- NOTE | ~2024-07-04 | CT_ITS ---
CT ANGIOGRAM NECK AND HEAD History: Vertigo. Technique: Axial noncontrast imaging of brain was performed. Serial spiral axial images through the h ead and neck were then obtained during arterial phase IV injection of 100 cc of Omnipaque 350. 3-D po stprocessing and MIP images were then reconstructed on the remote workstation. Dose reduction techniq ue was used on this scan by utilizing automated exposure control and iterative reconstruction techniq ue. The dose-length product (DLP) was 1516.00 mGy-cm. COMPARISON: 06/29/2024 CTA neck findings: Bilateral vertebral arteries are patent. Bilateral common carotid, internal carot id, and external carotid arteries are patent. There is prominent atherosclerotic calcified plaque at the left carotid bifurcation region, with approximately 50% stenosis of the proximal left internal ca rotid artery. There is also extensive calcified plaque at the right carotid bifurcation, with 60-70% stenosis of the proximal right internal carotid artery. The proximal right internal carotid artery de monstrates 60-70% stenosis relative to the normal distal artery lumen diameter. The proximal left int ernal carotid artery demonstrates 50% stenosis relative to the normal distal artery lumen diameter. Stable nodular left apical scarring since 06/23/2020. CTA head findings: Distal vertebral arteries, basilar artery, and posterior cerebral arteries are pat ent. Distal internal carotid arteries, middle cerebral arteries, and anterior cerebral arteries are p atent. There are atherosclerotic calcifications in the cavernous portions of the distal internal espinosa tid arteries, there is mild stenosis. There is a 5 mm saccular aneurysm at the bifurcation region of the distal M1 segment of the left middle cerebral artery (series 6 image 101). Axial noncontrast images of the brain demonstrates stable chronic right frontoparietal infarct, exten ding to the right occipital lobe. No acute infarct, acute intracranial hemorrhage or mass lesion iden tified. Mild dilatation of ventricles and subarachnoid spaces again noted. No mass effect or midline shift. Paranasal sinuses and mastoid air cells are clear. Calvarium intact. Impression: 5 mm saccular aneurysm at the bifurcation region of the distal M1 segment of the left middle cerebral artery, as detailed above. 60-70% stenosis of the proximal right internal carotid artery. 50% stenosis of the proximal left internal carotid artery. Reviewed, dictated and finalized at location M. Impression: 5 mm saccular aneurysm at the bifurcation region of the distal M1 segment of th e left middle cerebral artery, as detailed above. 60-70% stenosis of the proximal right internal carotid artery. 50% stenosis of the proximal left internal carotid artery.
[2024-07-04 20:44] VITALS: BP 185/98; PULSE 85; RESP 16; TEMP 36.7; O2SAT 96
--- NOTE | 2024-07-04 21:12 | ECG_ITS ---
Test Date: 2024-07-04 23:24:27 Measurements Intervals [place] Rate: 93 P: 69 DE: 154 QRS: 85 QRSD: 90 T: 31 QT: 361 QTc: 450 Interpretive Statements POOR QUALITY ECG BECAUSE OF BASELINE ARTIFACT SINUS RHYTHM MINOR ST SEGMENT ABNORMALITY BORDERLINE ECG No previous ECG available for comparison Electronically Signed On 07-05-2024 12:32:04 CDT by Feliberto Luis M.D.
--- NOTE | 2024-07-04 21:23 | ED_ITS ---
HPI - Dizziness General Chief Complaint: Dizziness Stated Complaint: dizzy Time Seen by Provider: 07/04/24 21:12 History of Present Illness HPI Narrative: 83-year-old female with a past medical history significant for prior stroke, advanced dementia, hypertension, chronic vertigo. Patient presents to the ED today after her [place] [facility] facility called the son and were worried about increasing vertigo and refractory hypertension. Patient only takes amlodipine for blood pressure and has a follow-up appointment tomorrow with her primary care provider to address her blood pressure concerns. She normally runs hypertensive in the 190s. Patient states that she has been feeling profoundly vertiginous even at rest. This is her similar vertigo that she has been doing for several years but states that it feels slightly worse today. Denies any new head injuries or traumas but was seen several days ago for a closed head injury and discharged after unremarkable workup. She is not having any nauseousness or vomiting, expresses that changes in position make her more vertiginous specially when she stands up quickly. She assumes a broad-based gait and uses her walker for ambulation denies any chest pain, shortness a breath, neck pain, vision changes, headache, abdominal pain, back pain, weakness fatigue. No sensory deficits, motor deficits. She is otherwise in her normal state of health. Son at bedside provides additional collateral formation and he is not actually wo rried about patient's vertigo but the group home did call but the blood pressure 1 T evaluated for this. Son states that she has advanced dementia and chronically vertiginous with no new changes to her baseline and has not noticed any changes in her mentation or dizziness from baseline. Related Data Home Medications Medication Instructions Recorded Confirmed aspirin 81 mg tablet,delayed 81 mg PO DAILY 07/21/20 05/14/24 release (Adult Aspirin Regimen) cholecalciferol (vitamin D3) 25 25 mcg PO DAILY 09/07/20 05/14/24 mcg (1,000 unit) tablet diphenhydramine HCl 25 mg capsule 25 mg PO .PRN PRN Sleep 02/23/23 05/14/24 (Allergy Relief (diphenhydramine)) melatonin 5 mg tablet 5 mg PO QPM 02/23/23 05/14/24 acetaminophen 325 mg tablet 325 mg PO Q6H PRN 02/06/24 05/14/24 Allergies Allergy/AdvReac Type Severity Reaction Status Date / Time No Known Allergies Allergy Verified 06/29/24 11:24 Review of Systems Review of Systems: As reviewed above in [facility] Past Medical History Medical History Age-related osteoporosis without current pathological fracture Chronotropic incompetence CVA (cerebral vascular accident) Dementia Dementia in other diseases classified elsewhere without behavioral disturbance Depression Dizziness 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 Essential hypertension Fatigue Frequent headaches Headache HTN (hypertension) Insomnia Osteoporosis Paresthesia of finger Vitamin D deficiency Surgical History Surgical History History of neck surgery Family History Family History Father Family history of lung cancer Hypertension Mother Hypertension Depression Social History Social History Smoking packs per day: 0.5 Smoking cigarettes per day: 10.0 Years smoked: 10 Smoking pack-years: 5.00 Smoking status: Former smoker Tobacco type: cigarettes Smoking end date: 09/25/10 Alcohol intake: current Substance use: never Do You Feel Safe in your Home?: Yes Lack of Transportation: No Lack of Food: Sometimes True Current Housing: I Have Housing Concerned About Future Housing: No Difficulty Paying Gas/Electric Bills: No Difficulty Paying for Meds: No Currently Unemployed: No Education: High School Diploma/GED Difficulty w/ Childcare or Family Care: No Living arrangements: assisted living Additional living arrangements comments: [facility] Occupation/Education: retired 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 Mucous membranes moist. NECK: Supple. CHEST: [Clear to auscultation. No respiratory distress.] HEART: [Regular rate and rhythm]. No murmur heard. [Normal peripheral pulses.] ABDOMEN: [Soft, nondistended], [nontender], [No rigidity or guarding] EXTREMITIES: Normal range of motion. [No edema.] SKIN: Warm, dry, no rash. NEURO: [No focal deficits]. Alert and oriented [x3.] Normal strength and sensation throughout both arms and legs, 5/5 strength, no ataxia in the arms or legs, no truncal ataxia, no nystagmus, extraocular movements are full. Follows commands easily PSYCH: [Normal mood and affect.] Course Vital Signs Vital signs: Vital Signs Temperature 36.7 C 07/04/24 20:44 Pulse Rate 85 07/04/24 20:44 Respiratory Rate 16 07/04/24 20:44 Blood Pressure 185/98 H 07/04/24 20:44 Pulse Oximetry 96 07/04/24 20:44 Oxygen Delivery Room Air 07/04/24 20:44 Temperature 36.7 C 07/04/24 20:44 Pulse Rate 87 07/05/24 00:56 Respiratory Rate 15 07/05/24 00:56 Blood Pressure 140/72 07/05/24 00:56 Pulse Oximetry 97 07/05/24 00:56 Oxygen Delivery Room Air 07/04/24 20:44 MDM - Dizziness MDM Narrative Medical decision making narrative: 83-year-old female with history of hypertension, advanced dementia, prior str okes. Presents to the emergency department today for complaints of hypertension and increasing vertigo symptoms. She states she has been vertiginous for several years. Son at bedside provides collateral formation and states that she is at her baseline from a vertigo perspective but the group home called and was worried about the blood pressure which is refractory although she is only on amlodipine and has a appointment tomorrow with her PCP to titrate medications. Patient denies any headache, vision changes, nausea, vomiting, chest pain, shortness a breath. She has no evidence of ataxia on examination, ambulating with a walker, strength is symmetric throughout, sensation is symmetric throughout. She is hypertensive in the 220s during my assessment but normal vital signs otherwise. At this time differential remains broad and could be related to her uncontrolled hypertension however intracranial process such as stroke aneurysm or dissection not excluded, mass effect is less likely given her negative CT scan several days ago. Electrolyte disturbances or occult infection less likely. We did give her a dose of hydralazine given her hypertensive vitals with complaints of vertigo and she was provide 10 mg of IV hydralazine. She was given p.o. meclizine a fluid bolus and laboratory studies were obtained as well as EKG. CT angiography and CT head was obtained given patient's age and risk factors. Patient's labs revealed leukocytosis or anemia. Negative troponin. Electr olytes within normal limits, normal renal and hepatic function panel. Patient did require an additional dose of IV medications for her blood pressure was given 20 mg of labetalol which did improve her vitals were significantly. Patient was re-evaluated had significant improvement in her dizziness and was expressed desire for discharge at that point. 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 I discussed this finding with the patient and the son at bedside and informed them of patient's chronic vertiginous symptoms probably arising from uncontrolled blood pressure and this aneurysm. Aneurysm is not bleeding or has any emergent intervenable finding on CT scan. We discussed admission but patient wants to be discharged given her symptoms and vitals improving. She has an appointment tomorrow morning with her primary care provider to discuss medication management including blood pressure control. I will provide them a copy of the CT findings and given that they want to be discharged I did implore them to follow-up tomorrow and not miss that appointment. Son was agreeable and also wants the patient discharged home, but will make sure that she keeps her appointment tomorrow morning. They were given strict return precautions including development of a headache, worsening vertiginous symptoms nausea vomiting uncontrolled blood pressure or any other concerning features and they expressed understanding prior to discharge. Differential Diagnosis Differential diagnosis: Likely benign paroxysmal positional vertigo, orthostatic hypotension, vertebral basilar insufficiency, cerebrovascular accident, acute vestibular neuronitis, transient cerebral ischemia and other Medical Records Attestation: I reviewed the patient's medical records. Lab Data Attestation: I reviewed the patient's lab results. 07/04/24 22:06 07/04/24 22:06 Labs: Lab Results 07/04/24 Range/Units 22:06 WBC 6.5 (4.5-10.0) K/mm3 RBC 4.24 (4.2-5.4) M/mm3 Hgb 12.7 (12.0-15.0) g/dL Hct 39.4 (37.0-47.0) % MCV 92.9 (80-100) fl MCH 30.0 (26-34) pg MCHC 32.2 (32-36) g/dl RDW 12.8 (11.5-14.5) % Plt Count 181 (150-375) k/mm3 MPV 10.0 (7.4-10.4) fl Immature Gran % (Auto) 0.2 (0-0.5) % Neut % (Auto) 65.8 (45.5-73.1) % Lymph % (Auto) 21.8 (18.3-44.2) % [place] % (Auto) 10.1 H (2.6-8.5) % Eos % (Auto) 1.5 (0-4.4) % Baso % (Auto) 0.6 (0.2-1.2) % Lymph # (Auto) 1.41 (0.9-3.2) K/mm3 [place] # (Auto) 0.7 H (0.1-0.6) K/mm3 Eos # (Auto) 0.1 (0-0.3) K/mm3 Baso # (Auto) 0.0 (0.0-0.1) K/mm3 Abs Immat Gran (auto) 0.01 (0.00-0.031) K/mm3 Absolute Neuts (auto) 4.3 (1.3-6.7) K/mm3 Absolute Nucleated RBC 0.000 (0.0-0.012) K/mm3 Nucleated RBC % 0.0 (0.0-0.2) % Sodium 137 (137-145) mmol/L Potassium 3.8 (3.4-5.0) mmol/L Chloride 98 (98-107) mmol/L Carbon Dioxide 29 (22-30) mmol/L Anion Gap 10 (4-12) mmol/L BUN 20 H (7-17) mg/dL Creatinine 0.70 (0.7-1.0) mg/dL Estim Creat Clear Calc Not Reportable Estimated GFR > 60 (59 - ) Glucose 106 (65-110) mg/dL Calcium 9.4 (8.4-10.2) mg/dL Troponin I 0.016 (0.000-0.034) ng/mL Urine Color Yellow (Yellow) Urine Appearance Cloudy H (Clear) Urine pH 7.5 (5.0-9.0) Ur Specific Oneco 1.012 (1.001-1.035) Urine Protein Negative (Negative) mg/dL Urine Glucose (UA) Negative (Negative) mg/dL Urine Ketones Negative (Negative) mg/dL Ur Blood (Man) Negative (Negative) Urine Nitrate Negative (Negative) Urine Bilirubin Negative (Negative) Urine Urobilinogen 1.0 (<2.0) mg/dL Leukocyte Esterase Rfl Trace H (Negative) [place]/UL Urine RBC 3-5 H (0-2) /hpf Urine WBC 0-5 (0-3) /hpf Ur Squamous Epith Cells None seen (Few) /hpf Urine Bacteria None seen /hpf Urine Casts 0-2 Imaging Data Attestation: I personally reviewed and interpreted this imaging study as follows: Discharge Plan Discharge Clinical Impression: Hypertensive urgency, Aneurysm of intracranial artery, Chronic vertigo Patient Disposition: Home, Self-Care Condition: Stable Instructions: Antibiotic Form, Vertigo (ED), Hypertension (ED) Additional Instructions: Your findings revealed hypertension that needs to be addressed with additional medications. Your CT scan does show a cerebral aneurysm but no active bleeding, hemorrhage, mass effect or shift. We need her to follow-up about this with your primary care provider and keep your appointment tomorrow. We implore you to return if you have concerns whatsoever including worsening symptoms, development of a headache, vision changes, worsening of your chronic vertigo, uncontrolled blood pressure. Prescriptions: No Action aspirin [Adult Aspirin Regimen] 81 mg tablet,delayed release (DR/EC) 81 mg PO DAILY melatonin 5 mg tablet 5 mg PO QPM Patient Comments: 5mg (1 tablet every evening) diphenhydramine HCl [Allergy Relief(diphenhydramin)] 25 mg capsule 25 mg PO .PRN PRN (Reason: Sleep) Patient Comments: Only give PRN- not daily acetaminophen 325 mg tablet 325 mg PO Q6H PRN amlodipine 10 mg tablet 10 mg PO DAILY Qty: 14 0RF escitalopram oxalate 10 mg tablet 10 mg PO DAILY Qty: 90 1RF cholecalciferol (vitamin D3) 25 mcg (1,000 unit) tablet 25 mcg PO DAILY alendronate [Fosamax] 70 mg tablet 70 mg PO WEEKLY Qty: 12 0RF omeprazole 20 mg capsule,delayed release(DR/EC) 20 mg PO DAILY Qty: 90 0RF rivastigmine 4.6 mg/24 hour patch 24 hour 1 patch transdermal DAILY Qty: 30 2RF Follow-up/Referrals: Noam Cleveland DO [Primary Care Provider] - Time of Disposition: 01:05
[2024-07-04] MEDS: MECLIZINE HCL 25 MG TABLET PO (22:08)
[2024-07-04] MEDS: LACTATED RINGERS 1,000 ML 999 ML IV CONT (22:09)
[2024-07-04] MEDS: hydrALAZINE HCL 20 MG/ML VIAL 10 MG IV PUSH (22:09)
[2024-07-04 22:47] LABS: Basophils Percent Auto 0.6 % (0.2-1.2); Eosinophils Absolute Auto 0.1 K/mm3 (0-0.3); Eosinophils Percent Auto 1.5 % (0-4.4); Hematocrit 39.4 % (37.0-47.0); Hemoglobin 12.7 g/dL (12.0-15.0); Immature Granulocyte Absolute 0.01 K/mm3 (0.00-0.031); Immature Granulocyte Percent A 0.2 % (0-0.5); Lymphocytes Absolute Auto 1.41 K/mm3 (0.9-3.2); Lymphocytes Percent Auto 21.8 % (18.3-44.2); Mean Corpuscular HGB Conc 32.2 g/dl (32-36); Mean Corpuscular Volume 92.9 fl (80-100); Monocytes Absolute Auto 0.7 K/mm3 (0.1-0.6); Monocytes Percent Auto 10.1 % (2.6-8.5); Neutrophils Absolute Auto 4.3 K/mm3 (1.3-6.7); Neutrophils Percent Auto 65.8 % (45.5-73.1); Platelet Count Result 181 k/mm3 (150-375); Red Blood Count 4.24 M/mm3 (4.2-5.4); Red Cell Distribution Width 12.8 % (11.5-14.5); White Blood Count 6.5 K/mm3 (4.5-10.0)
[2024-07-04 22:53] LABS: Add Urine Microscopic? YES; Appearance Urine Cloudy (Clear); Bacteria Urine None Seen /hpf; Bilirubin Urine Negative (Negative); Blood Urine Negative (Negative); Color Urine Yellow (Yellow); Glucose Urine UA Negative (Negative); Ketones Urine Negative (Negative); Leukocyte Esterase Ur Trace LEU/UL (Negative); Nitrate Urine Negative (Negative); Non Pathogenic Casts 0-2; Protein Urine Negative (Negative); Specific Grav Ur 1.012 (1.001-1.035); Squamous Epithelial Cell Urine None Seen /hpf (Few); WBC Urine 0-5 /hpf (0-3); pH Urine 7.5 (5.0-9.0)
[2024-07-04 22:57] LABS: Anion Gap 10 mmol/L (4-12); Blood Urea Nitrogen 20 mg/dL (7-17); Calcium 9.4 mg/dL (8.4-10.2); Carbon Dioxide 29 mmol/L (22-30); Chloride 98 mmol/L (98-107); Estimated Glomerular Filt Rate > 60; Glucose 106 mg/dL (65-110); Potassium 3.8 mmol/L (3.4-5.0); Sodium 137 mmol/L (137-145)
[2024-07-04] MEDS: LABETALOL HCL INJ 100 MG/20 ML VIAL 20 MG IV PUSH (23:24)
[2024-07-04] MEDS: diphenhydrAMINE HCl INJ 50 MG/ML VIAL 25 MG IV PUSH (23:25)
[2024-07-04] MEDS: PROCHLORPERAZINE EDISYLATE 10 MG/2 ML VIAL 5 MG IV PUSH (23:40)
[2024-07-05 00:52] LABS: Troponin I 0.016 ng/mL (0.000-0.034)
[2024-07-05 00:56] VITALS: BP 140/72; PULSE 87; RESP 15; O2SAT 97
[2024-07-05 01:23] VITALS: BP 129/78; PULSE 88; RESP 15; O2SAT 100
== END 2024-07-05 01:24 ==
PROVIDERS: Emergency Provider Student in an Organized Health Care Education/Training Program; PCP Internal Medicine
DX: I67.1 Cerebral aneurysm, nonruptured (principal); I16.0 Hypertensive urgency; R42 Dizziness and giddiness; G30.0 Alzheimer's disease with early onset; I10 Essential (primary) hypertension; F02.80 Dementia in other diseases classified elsewhere, unspecified severity, without behavioral disturbance, psychotic disturbance, mood disturbance, and anxiety; J43.9 Emphysema, unspecified; J44.89 Other specified chronic obstructive pulmonary disease; E55.9 Vitamin D deficiency, unspecified; M81.0 Age-related osteoporosis without current pathological fracture; Z86.73 Personal history of transient ischemic attack (TIA), and cerebral infarction without residual deficits; Z87.891 Personal history of nicotine dependence; Z79.82 Long term (current) use of aspirin; Z79.899 Other long term (current) drug therapy
CPT/HCPCS: 36415; 70496; 70498; 80048; 81001; 84484; 85025; 93005; 96361; 96374; 96375; 99284; A9270; J0360; J0780; J1200; J7120; Q9967

== ENCOUNTER 2024-07-26 08:19 | Outpatient (CLI) | payer MEDICARE, MEDICAID, SELFPAY ==
--- NOTE | ~2024-07-26 | US_ITS ---
EXAMINATION: US biopsy lymph node DATE: 07/26/2024 09:53 INDICATION: Localized enlarged left supraclavicular lymph nodes TECHNIQUE: The procedure including the risks and benefits was discussed with the patient. Risks discu ssed included bleeding and infection. The patient understood the risks and agreed to proceed. The sk in overlying the left supraclavicular region was prepped and draped in usual sterile fashion. Anesth etic was administered with 1% lidocaine subcutaneously. A 14 gauge core biopsy needle was advanced u nder continuous ultrasound observation to the lesion of interest. 5 core biopsy specimens were obtai parth, 3 placed in RPMI media and 2 in formalin. The needle was removed and the entry site was cleaned and dressed. Post procedure ultrasound demonstrated no hemorrhage. FINDINGS: Ultrasound images demonstrate a 3.7 x 1.7 cm and 2.2 x 1.4 cm heterogeneously hypoechoic ma ss in the left supraclavicular region of concern. Subsequent images demonstrate biopsy needle advance d into the masses. IMPRESSION: 1. Successful Ultrasound-guided biopsy of a pair of left supraclavicular masses concerning for metast atic lymphadenopathy. Reviewed, dictated and finalized at location A. IMPRESSION: 1. Successful Ultrasound-guided biopsy of a pair of left supraclavicular masses concerning for metastatic lymphadenopathy.
--- NOTE | ~2024-07-26 | CT_ITS ---
EXAMINATION:CT diagnostic chest w con DATE: 07/26/2024 09:07 INDICATION: Localized enlarged lymph nodes. TECHNIQUE: Computed tomography (CT) of the chest was performed with 75 mL Omnipaque 350 intravenous c ontrast. Automated exposure control and iterative reconstruction technique were employed. The dose-le ngth product (DLP) was 146.60 mGy-cm. COMPARISON: Chest CT 06/23/2020, cervical spine CT 06/29/2024 FINDINGS: There is mild scarring at the lung apices. There is mild atelectasis bilaterally. There is a cluster of centrilobular nodules and tree-in-bud opacities in right upper lobe, consistent with chr onic mild infection. A calcified left lung nodule and calcified left hilar lymph nodes are consistent with old granulomatous disease. No pleural effusion. The heart size is normal. There are coronary ar lana calcifications. No pericardial effusion. There is left supraclavicular lymphadenopathy measuring up to 3.6 x 1.7 cm. There is cortical thinning of the kidneys. There is a small sliding hiatal herni a. There are changes of anterior posterior fusion procedures in cervical thoracic spine. There is a c hronic compression fracture of T7. There is thoracic levoscoliosis. There is severe thoracic and lumb ar spondylosis. IMPRESSION: 1. Left supraclavicular lymphadenopathy, consistent with metastatic disease versus lymphoma. Ultrasou nd-guided core needle biopsy is recommended. Reviewed, dictated and finalized at location B. IMPRESSION: 1. Left supraclavicular lymphadenopathy, consistent with metastatic disease yonis larissa lymphoma. Ultrasound-guided core needle biopsy is recommended.
== END 2024-07-26 08:20 | disposition home or self-care (01) ==
PROVIDERS: PCP Internal Medicine; Visit Provider Nurse Practitioner
DX: R59.0 Localized enlarged lymph nodes (principal)
CPT/HCPCS: 38505; 71260; 76942; 88184; 88305; 88342; Q9967

== ENCOUNTER 2024-08-19 10:28 | Outpatient (CLI) | payer MEDICARE, MEDICAID, SELFPAY ==
--- NOTE | 2024-08-19 16:10 | WPDPFTINT ---
PFT Procedure Performed PFT Procedure Performed Plethysmography (Lung Vol) Diffusing Cap (DLCO) Flow Vol Loop Spirometry w/o Bronchodil PFT Interpretation This is a pulmonary function test with spirometry, plethysmography and diffusing capacity. The test was performed and results interpreted in accordance with the 2019 and 2005 ATS/ERS Task Force guidelines respectively using the Global Lung Function Initiative-2012 reference equations. Patient demonstrated good effort and cooperation. Reproducibility criteria were met. The quality of the spirometry maneuver was Grade A. Findings: Spirometry: There is decreased maximal expiratory airflow at all lung volumes with concave expiratory flow tracing. The contour the inspiratory flow tracing is normal. The FVC is 1.80 L, 68% predicted. The FEV1 is 1.01 L, 51% predicted. The FEV1: FVC ratio is 56%. Plethysmography: The total lung capacity is 4.77 L, 89% predicted. The functional residual capacity is 3.32 L, 106% predicted. The residual volume is 2.84 L, 111% predicted. The residual volume: Total lung capacity ratio is 60%. Diffusing capacity: The diffusing capacity unadjusted for hemoglobin and carboxyhemoglobin is 8.3, 42% predicted. The diffusing capacity adjusted for alveolar volume is 3.20, 80% predicted. In comparison to previous pulmonary function testing on 08/30/2018 the pre bronchodilator FVC has decreased from 2.14 L to 1.80 L. The pre bronchodilator FEV1 is decreased from 1.30 L to 1.01 L. The total lung capacity has increased from 3.18 L to 4.77 L. The functional residual capacity has increased from 2.19 L to 3.32 L. The residual volume has increased from 0.98 L to 2.84 L. And the residual volume: Total lung capacity ratio has increased from 31% to 60%. The diffusing capacity unadjusted for hemoglobin and carboxyhemoglobin is unchanged from 8.2 to 8.3. The diffusing capacity adjusted for alveolar volume is unchanged from 3.44 to 3.20. Impression: There is a moderately severe obstructive abnormality. The increase in residual volume to total lung volume ratio is consistent with hyperinflation from an obstructive abnormality. The diffusing capacity unadjusted for hemoglobin and carboxyhemoglobin is moderately decreased and normalizes when adjusted for alveolar volume. In comparison to previous pulmonary function testing on 08/30/2018 there has been a greater than anticipated time dependent decrease in the FVC, FEV1. There has been a greater than anticipated time dependent increase in the total lung capacity, functional residual capacity, residual volume and residual volume: Total lung capacity ratio with no significant change in the diffusing capacity. Clinical correlation is recommended.
== END 2024-08-19 10:29 | disposition home or self-care (01) ==
LOC: ANHPFT 10:30
PROVIDERS: PCP Internal Medicine; Visit Provider Internal Medicine
DX: R94.2 Abnormal results of pulmonary function studies (principal); R06.00 Dyspnea, unspecified
CPT/HCPCS: 94375; 94726; 94729

== ENCOUNTER 2024-08-27 09:15 | Outpatient (CLI) | payer MEDICARE, MEDICAID, SELFPAY ==
--- NOTE | ~2024-08-27 | PE_ITS ---
EXAMINATION: PET skull to mid thigh DATE: 08/27/2024 11:26 INDICATION: Malignant neoplasm of lung. TECHNIQUE: Blood glucose level was 99 mg/dL. 9.799 mCi of 18-fluorodeoxyglucose (18-FDG) was administ ered i.v. Low dose computed tomography (CT) images were acquired from the base of the brain to the pr oximal thighs for attenuation correction and anatomic localization. Automated exposure control was em ployed. Dose-length product (DLP) was 645 mGy-cm. Positron emission tomography (PET) images were acqu ired in the same distribution. COMPARISON: Chest CT 07/26/2024 FINDINGS: Head/neck: There is left supraclavicular lymphadenopathy with increased activity. For example, a 2.7 x 1.8 cm left subclavicular node demonstrates maximum SUV of 21.5. There is a 2.5 cm nodule in left t hyroid lobe with maximum SUV of 32.5. There are changes of anterior posterior fusion procedures invol ving the cervicothoracic spine. Chest: There is mild scarring at the lung apices. There is mild atelectasis bilaterally. No pleural e ffusion. Calcified left hilar and mediastinal lymph nodes are consistent with old granulomatous disea se. The heart size is normal. There are coronary artery calcifications. No pericardial effusion. Ther e is a small sliding hiatal hernia. There are old healed left rib fractures. Abdomen/pelvis/proximal thighs: The liver is normal. Calcifications in the spleen are consistent with old granulomatous disease. The gallbladder, pancreas, adrenal glands are normal. There are calcifica tions at the mine of the kidneys and may be vascular. There are no dilated loops of bowel. There are no pathologically enlarged lymph nodes. There is no free intraperitoneal fluid. There are old healed fractures of the inferior pubic rami and left superior pubic ramus. There is a fracture deformity of the inferior sacrum with increased activity. IMPRESSION: 1. Left subclavicular lymphadenopathy with increased activity, consistent with metastatic carcinoma. 2. Left thyroid nodule with increased activity suspicious for primary neoplasm. Ultrasound-guided fin e needle aspiration is recommended. Reviewed, dictated and finalized at location A. E WORKER IMPRESSION: 1. Left subclavicular lymphadenopathy with increased activity, consistent with metastatic carcinoma. 2. Left thyroid nodule with increased activity suspicious for primary neoplasm. Ultrasound-guided fine needle aspiration is recommended.
[2024-08-27 09:37] LABS: Glucose Point of Care 99 mg/dl (65-105)
== END 2024-08-27 09:16 | disposition home or self-care (01) ==
PROVIDERS: PCP Internal Medicine; Visit Provider Nurse Practitioner
DX: R59.0 Localized enlarged lymph nodes (principal); E04.1 Nontoxic single thyroid nodule; C77.0 Secondary and unspecified malignant neoplasm of lymph nodes of head, face and neck
CPT/HCPCS: 78815; A9552

== ENCOUNTER 2024-09-10 15:40 | Outpatient (CLI) | payer MEDICARE, MEDICAID, SELFPAY ==
[2024-09-10 16:02] LABS: Basophils Absolute Auto 0.1 K/mm3 (0.0-0.1); Basophils Percent Auto 1.1 % (0.2-1.2); Eosinophils Absolute Auto 0.2 K/mm3 (0-0.3); Eosinophils Percent Auto 2.7 % (0-4.4); Hematocrit 39.7 % (37.0-47.0); Hemoglobin 12.8 g/dL (12.0-15.0); Immature Granulocyte Absolute 0.01 K/mm3 (0.00-0.031); Immature Granulocyte Percent A 0.2 % (0-0.5); Lymphocytes Percent Auto 23.2 % (18.3-44.2); Mean Corpuscular HGB Conc 32.2 g/dl (32-36); Mean Corpuscular Hemoglobin 30.3 pg (26-34); Mean Corpuscular Volume 93.9 fl (80-100); Mean Platelet Volume 9.1 fl (7.4-10.4); Monocytes Absolute Auto 0.6 K/mm3 (0.1-0.6); Monocytes Percent Auto 10.2 % (2.6-8.5); Neutrophils Absolute Auto 3.5 K/mm3 (1.3-6.7); Neutrophils Percent Auto 62.6 % (45.5-73.1); Platelet Count Result 190 k/mm3 (150-375); Red Blood Count 4.23 M/mm3 (4.2-5.4); Red Cell Distribution Width 12.9 % (11.5-14.5); White Blood Count 5.6 K/mm3 (4.5-10.0)
[2024-09-10 17:07] LABS: Alanine Aminotransferase 17 U/L (6-35); Albumin Level 4.5 g/dL (3.5-5.1); Alkaline Phosphatase 82 U/L (38-126); Anion Gap 4 mmol/L (4-12); Aspartate Amino Transferase 33 U/L (14-36); Bilirubin,Total 0.6 mg/dL (0.2-1.3); Blood Urea Nitrogen 20 mg/dL (7-17); Calcium 9.3 mg/dL (8.4-10.2); Carbon Dioxide 29 mmol/L (22-30); Chloride 102 mmol/L (98-107); Estimated Glomerular Filt Rate > 60; Glucose 101 mg/dL (65-110); Potassium 4.2 mmol/L (3.4-5.0); Sodium 135 mmol/L (137-145)
== END 2024-09-10 15:41 | disposition home or self-care (01) ==
LOC: ANHLAB 15:42
PROVIDERS: PCP Internal Medicine; Visit Provider Internal Medicine Hematology & Oncology
DX: C73 Malignant neoplasm of thyroid gland (principal)
CPT/HCPCS: 36415; 80053; 84443; 85025; 86800

== ENCOUNTER 2024-09-11 19:26 | Emergency (ER) | payer MEDICARE, MEDICAID, SELFPAY ==
[2024-09-11] VITALS (14 sets, daily range): BP systolic 130–168; BP diastolic 72–85; PULSE 65–80; RESP 14–33; TEMP 36.7; O2SAT 97–100
--- NOTE | ~2024-09-11 | XR_ITS ---
EXAMINATION: XR chest 2V DATE: 09/11/2024 19:50 INDICATION: Dizziness. TECHNIQUE: Frontal and lateral views of the chest were obtained. COMPARISON: Chest view 06/23/2020 FINDINGS: The patient is rotated to her right. There is no pneumonia, pleural effusion, or pneumothor ax. This is normal. There are old healed bilateral rib fractures. There are changes of anterior and p osterior fusion procedures in cervical thoracic spine. There is a chronic compression fracture in mid thoracic spine. IMPRESSION: 1. No acute cardiopulmonary disease. Reviewed, dictated and finalized at location A. STMAS TREE GROWER
--- NOTE | ~2024-09-11 | CT_ITS ---
EXAMINATION: CTA brain carotid DATE: 09/11/2024 20:14 INDICATION: Headache. Vertigo. Neck pain. TECHNIQUE: Computed tomographic angiography (CTA) of the head was performed without and with 100 mL O mnipaque-350 intravenous contrast. CTA of the neck was performed with intravenous contrast. Automated exposure control and iterative reconstruction technique were employed. The dose-length product was 1 646.85 mGy-cm. Maximum intensity projection and volume rendered 3D-reconstructions were created by jeniffer liriano technologist on a separate workstation. COMPARISON: CTA 07/04/2024 FINDINGS: HEAD CTA: There are old infarcts in the right frontal, parietal, and occipital lobes. There are scatt ered areas of low attenuation in the cerebral white matter, which is within normal limits for the pat ient's age. There are old infarcts in the cerebellum bilaterally. There is no intracranial hemorrhage , acute infarction, or abnormal intracranial mass lesion. The ventricles are normal in size. There ar e likely changes of ocular lens replacement surgeries. There is mild mucosal thickening in the ethmoi d sinuses. There are small bilateral mastoid effusions. The vertebral arteries are codominant. There is no significant stenosis of basilar artery or the posterior cerebral arteries. There is no signific ant stenosis of the intracranial internal carotid arteries or anterior or middle cerebral arteries. A nterior communicating artery is normal. There is a 5 mm saccular aneurysm of left middle cerebral art andreina. The posterior communicating arteries are normal. NECK CTA: There is mild scarring at the lung apices. Calcified left hilar and mediastinal lymph nodes are consistent with old granulomatous disease. There are nodules in the thyroid measuring up to 2.3 cm. There is no significant stenosis of the vertebral arteries. There is plaque in the proximal inter nal carotid arteries. There is 26% stenosis of the proximal right internal carotid artery relative to normal distal artery lumen diameter (NASCET criteria). There is 30% stenosis of the proximal left in ternal carotid artery relative to normal distal artery lumen diameter. There is severe cervical spond ylosis. There are changes of anterior fusion procedure from C6 to T2. There are changes of posterior fusion procedure from C4 to T3. There are chronic compression fractures of T5 and T8. There is severe cervical spondylosis. IMPRESSION: 1. Old infarcts involving the right frontal, parietal, occipital lobes and bilateral cerebellum. 2. Stable 5 mm saccular aneurysm of left middle cerebral artery at the junction of the M1 and M2 seg ents. 3. 26% stenosis of the proximal right internal carotid artery relative to normal distal artery lumen diameter (NASCET criteria). 4. 30% stenosis of the proximal left internal carotid artery relative to normal distal artery lumen d iameter. Reviewed, dictated and finalized at location A. STICAL ENGINEER IMPRESSION: 1. Old infarcts involving the right frontal, parietal, occipital lobes and bila teral cerebellum. 2. Stable 5 mm saccular aneurysm of left middle cerebral artery at the junction of the M1 and M2 segments. 3. 26% stenosis of the proximal right internal carotid artery relative to al l distal artery lumen diameter (NASCET criteria). 4. 30% stenosis of the proximal left internal carotid artery relative to normal distal artery lumen diameter.
--- NOTE | 2024-09-11 19:33 | ECG_ITS ---
Test Date: 2024-09-11 19:37:18 Measurements Intervals [place] Rate: 67 P: 55 AL: 159 QRS: 45 QRSD: 86 T: 37 QT: 409 QTc: 433 Interpretive Statements SINUS RHYTHM MINOR ST SEGMENT ABNORMALITY Electronically Signed On 09-12-2024 15:53:02 [employer] by Solomno Montiel M.D.
[2024-09-11 19:41] LABS: Basophils Percent Auto 0.7 % (0.2-1.2); Eosinophils Absolute Auto 0.2 K/mm3 (0-0.3); Eosinophils Percent Auto 3.5 % (0-4.4); Hematocrit 30.7 % (37.0-47.0); Immature Granulocyte Absolute 0.02 K/mm3 (0.00-0.031); Immature Granulocyte Percent A 0.4 % (0-0.5); Lymphocytes Percent Auto 25.8 % (18.3-44.2); Mean Corpuscular HGB Conc 32.6 g/dl (32-36); Mean Corpuscular Hemoglobin 30.5 pg (26-34); Mean Corpuscular Volume 93.6 fl (80-100); Mean Platelet Volume 9.6 fl (7.4-10.4); Monocytes Absolute Auto 0.7 K/mm3 (0.1-0.6); Monocytes Percent Auto 13.6 % (2.6-8.5); Platelet Count Result 161 k/mm3 (150-375); Red Blood Count 3.28 M/mm3 (4.2-5.4); Red Cell Distribution Width 13.1 % (11.5-14.5); White Blood Count 5.4 K/mm3 (4.5-10.0)
[2024-09-11 19:51] LABS: Alanine Aminotransferase 16 U/L (6-35); Albumin Level 4.1 g/dL (3.5-5.1); Alkaline Phosphatase 63 U/L (38-126); Anion Gap 4 mmol/L (4-12); Aspartate Amino Transferase 29 U/L (14-36); Bilirubin,Total 0.6 mg/dL (0.2-1.3); Blood Urea Nitrogen 25 mg/dL (7-17); Calcium 8.7 mg/dL (8.4-10.2); Carbon Dioxide 26 mmol/L (22-30); Chloride 105 mmol/L (98-107); Estimated CRCL calculation 34 ml/min; Estimated Glomerular Filt Rate 53; Glucose 112 mg/dL (65-110); Sodium 135 mmol/L (137-145)
--- NOTE | 2024-09-11 20:18 | ED.GENADULT ---
HPI - General Adult General Chief complaint: Dizziness Stated complaint: SUDDEN ONSET MALIK & DIZZINESS Time Seen by Provider: 09/11/24 19:27 History of Present Illness HPI narrative: Patient has dementia and is a poor historian This is a this is an 83-year-old female with severe dementia and chronic vertigo presenting with vertigo. Patient says about 40 minutes prior to arrival she developed a frontal headache. She says that she has headaches like this many times in the past. She also developed vertigo at that time which is also a chronic condition. Patient denies fevers chills chest pain difficulty breathing abdominal pain nausea vomiting or diarrhea. 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 Related Data Home Medications ?Medication ?Instructions ?Recorded ?Confirmed ?Last Taken ?Type aspirin 81 mg tablet,delayed 81 mg PO DAILY 07/21/20 09/03/24 Unknown History release (Adult Aspirin Regimen) cholecalciferol (vitamin D3) 25 25 mcg PO DAILY 09/07/20 09/03/24 Unknown History mcg (1,000 unit) tablet diphenhydramine HCl 25 mg capsule 25 mg PO .PRN PRN Sleep 02/23/23 09/03/24 Unknown History (Allergy Relief (diphenhydramine)) melatonin 5 mg tablet 5 mg PO QPM 02/23/23 09/03/24 Unknown History acetaminophen 325 mg tablet 325 mg PO Q6H PRN 02/06/24 09/03/24 Unknown History Allergies Allergy/AdvReac Type Severity Reaction Status Date / Time No Known Allergies Allergy Verified 09/03/24 13:04 [facility] Past Medical History Medical History (Updated 09/11/24 @ 21:23 by Ru Cisneros MD) COPD (chronic obstructive pulmonary disease) 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 Dementia Dizziness HTN (hypertension) CVA (cerebral vascular accident) Vitamin D deficiency Osteoporosis Insomnia Age-related osteoporosis without current pathological fracture Chronotropic incompetence Dementia in other diseases classified elsewhere without behavioral disturbance Depression 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 Fatigue Frequent headaches Paresthesia of finger Essential hypertension Headache Surgical History Surgical History History of neck surgery Family History Family History Father Family history of lung cancer Hypertension Mother Hypertension Depression Social History Social History Smoking packs per day: 0.5 Smoking cigarettes per day: 10.0 Years smoked: 10 Smoking pack-years: 5.00 Smoking status: Former smoker Tobacco type: cigarettes Smoking end date: 09/25/10 Alcohol intake: current Substance use: never Do You Feel Safe in your Home?: Yes Lack of Transportation: No Lack of Food: Sometimes True Current Housing: I Have Housing Concerned About Future Housing: No Difficulty Paying Gas/Electric Bills: No Difficulty Paying for Meds: No Currently Unemployed: No Education: High School Diploma/GED Difficulty w/ Childcare or Family Care: No Living arrangements: assisted living Additional living arrangements comments: [place] [address] Occupation/Education: retired 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 A&O times 1-2 Head: atraumatic. EYES: EOMI, NOSE: Atraumatic NECK: Trachea midline RESPIRATORY: No increased rate of breathing, clear to auscultation CARDIOVASCULAR: RRR, ABDOMINAL: Non-distended soft nontender no guarding or rebound guarding rebound MUSCULOSKELETAl: No obvious deformities NEURO: Alert. Cranial nerves 2-12 grossly intact. Sensation light touch, motor function cerebellar function intact for 4 extremities. Gait exam was deferred SKIN:: Warm, dry. Normal color PSYCHIATRIC: Normal affect Course Vital Signs Vital signs: Vital Signs Temperature 98.0 F 09/11/24 19:26 Pulse Rate 71 09/11/24 19:26 Respiratory Rate 16 09/11/24 19:26 Blood Pressure 130/85 09/11/24 19:26 Pulse Oximetry 97 09/11/24 19:26 Oxygen Delivery Room Air 09/11/24 19:26 Temperature 98.0 F 09/11/24 19:26 Pulse Rate 71 09/11/24 19:26 Respiratory Rate 16 09/11/24 19:26 Blood Pressure 130/85 09/11/24 19:26 Pulse Oximetry 97 09/11/24 19:26 Oxygen Delivery Room Air 09/11/24 19:26 Medical Decision Making MDM Narrative Medical decision making narrative: -Course: 83-year-old female with a history of headaches and vertigo presenting with her typical symptoms. CT ordered to ensure her aneurysm had ruptured. CTA showed that did not have a bleed and her aneurysm is stable. The rest her workup was unremarkable. When I re-evaluated the patient she said her headache had resolved. She was still feeling dizzy although her son (who recently arrived) says she always feels dizzy. He is comfortable taking her home. Patient will be discharged. -DDX includes but is not limited to: Chronic vertigo, ICH, dehydration, dementia -Co-morbidities complicating care: dementia, chronic vertigo Vital Signs Vital Signs: Vital Signs Temperature 98.0 F 09/11/24 19:26 Pulse Rate 71 09/11/24 19:26 Respiratory Rate 16 09/11/24 19:26 Blood Pressure 130/85 09/11/24 19:26 Pulse Oximetry 97 09/11/24 19:26 Oxygen Delivery Room Air 09/11/24 19:26 Temperature 98.0 F 09/11/24 19:26 Pulse Rate 71 09/11/24 19:26 Respiratory Rate 16 09/11/24 19:26 Blood Pressure 130/85 09/11/24 19:26 Pulse Oximetry 97 09/11/24 19:26 Oxygen Delivery Room Air 09/11/24 19:26 Lab Data 09/11/24 20:33 09/11/24 20:33 Labs: Lab Results 09/11/24 09/11/24 Range/Units 19:34 20:33 WBC 5.4 5.0 (4.5-10.0) K/mm3 RBC 3.28 L 3.67 L (4.2-5.4) M/mm3 Hgb 10.0 L 11.4 L (12.0-15.0) g/dL Hct 30.7 L 34.3 L (37.0-47.0) % MCV 93.6 93.5 (80-100) fl MCH 30.5 31.1 (26-34) pg MCHC 32.6 33.2 (32-36) g/dl RDW 13.1 13.1 (11.5-14.5) % Plt Count 161 171 (150-375) k/mm3 MPV 9.6 9.4 (7.4-10.4) fl Immature Gran % (Auto) 0.4 0.2 (0-0.5) % Neut % (Auto) 56.0 59.2 (45.5-73.1) % Lymph % (Auto) 25.8 21.9 (18.3-44.2) % [place] % (Auto) 13.6 H 14.5 H (2.6-8.5) % Eos % (Auto) 3.5 3.2 (0-4.4) % Baso % (Auto) 0.7 1.0 (0.2-1.2) % Lymph # (Auto) 1.40 1.09 (0.9-3.2) K/mm3 [place] # (Auto) 0.7 H 0.7 H (0.1-0.6) K/mm3 Eos # (Auto) 0.2 0.2 (0-0.3) K/mm3 Baso # (Auto) 0.0 0.1 (0.0-0.1) K/mm3 Abs Immat Gran (auto) 0.02 0.01 (0.00-0.031) K/mm3 Absolute Neuts (auto) 3.0 3.0 (1.3-6.7) K/mm3 Absolute Nucleated RBC 0.000 0.000 (0.0-0.012) K/mm3 Nucleated RBC % 0.0 0.0 (0.0-0.2) % Sodium 135 L 134 L (137-145) mmol/L Potassium 4.0 3.8 (3.4-5.0) mmol/L Chloride 105 102 (98-107) mmol/L Carbon Dioxide 26 28 (22-30) mmol/L Anion Gap 4 4 (4-12) mmol/L BUN 25 H 24 H (7-17) mg/dL Creatinine 1.00 1.10 H (0.7-1.0) mg/dL Estim Creat Clear Calc 34 31 ml/min Estimated GFR 53 L 47 L (59 - ) Glucose 112 H 102 (65-110) mg/dL Calcium 8.7 8.5 (8.4-10.2) mg/dL Total Bilirubin 0.6 0.5 (0.2-1.3) mg/dL AST 29 21 (14-36) U/L ALT 16 13 (6-35) U/L Alkaline Phosphatase 63 67 (38-126) U/L Total Protein 7.0 6.0 L (6.3-8.2) g/dL Albumin 4.1 3.7 (3.5-5.1) g/dL Discharge Plan Discharge Clinical Impression: Vertigo, Headache Patient Disposition: Home, Self-Care Condition: Stable Instructions: Antibiotic Form Patient Language: Macedonian Prescriptions: No Action aspirin [Adult Aspirin Regimen] 81 mg tablet,delayed release (DR/EC) 81 mg PO DAILY melatonin 5 mg tablet 5 mg PO QPM Patient Comments: 5mg (1 tablet every evening) diphenhydramine HCl [Allergy Relief(diphenhydramin)] 25 mg capsule 25 mg PO .PRN PRN (Reason: Sleep) Patient Comments: Only give PRN- not daily acetaminophen 325 mg tablet 325 mg PO Q6H PRN losartan 25 mg tablet 25 mg PO DAILY Qty: 90 0RF Bevespi Aerosphere 9-4.8 mcg HFA aerosol inhaler 2 puff inhalation BID Qty: 10.7 3RF albuterol sulfate 90 mcg/actuation HFA aerosol inhaler 2 inh inhalation Q4H PRN (Reason: shortness of breath or wheezing) Qty: 8.5 2RF triamcinolone acetonide 0.1 % ointment 1 applic topical BID PRN (Reason: rash upper back) Qty: 30 0RF amlodipine 10 mg tablet 10 mg PO DAILY Qty: 14 0RF escitalopram oxalate 10 mg tablet 10 mg PO DAILY Qty: 90 1RF cholecalciferol (vitamin D3) 25 mcg (1,000 unit) tablet 25 mcg PO DAILY alendronate [Fosamax] 70 mg tablet 70 mg PO WEEKLY Qty: 12 0RF omeprazole 20 mg capsule,delayed release(DR/EC) 20 mg PO DAILY Qty: 90 0RF rivastigmine 4.6 mg/24 hour patch 24 hour 1 patch transdermal DAILY Qty: 30 5RF Follow-up/Referrals: Noam Cleveland DO [Primary Care Provider] -
[2024-09-11 20:40] LABS: Basophils Absolute Auto 0.1 K/mm3 (0.0-0.1); Eosinophils Absolute Auto 0.2 K/mm3 (0-0.3); Eosinophils Percent Auto 3.2 % (0-4.4); Hematocrit 34.3 % (37.0-47.0); Hemoglobin 11.4 g/dL (12.0-15.0); Immature Granulocyte Absolute 0.01 K/mm3 (0.00-0.031); Immature Granulocyte Percent A 0.2 % (0-0.5); Lymphocytes Absolute Auto 1.09 K/mm3 (0.9-3.2); Lymphocytes Percent Auto 21.9 % (18.3-44.2); Mean Corpuscular HGB Conc 33.2 g/dl (32-36); Mean Corpuscular Hemoglobin 31.1 pg (26-34); Mean Corpuscular Volume 93.5 fl (80-100); Mean Platelet Volume 9.4 fl (7.4-10.4); Monocytes Absolute Auto 0.7 K/mm3 (0.1-0.6); Monocytes Percent Auto 14.5 % (2.6-8.5); Neutrophils Percent Auto 59.2 % (45.5-73.1); Platelet Count Result 171 k/mm3 (150-375); Red Blood Count 3.67 M/mm3 (4.2-5.4); Red Cell Distribution Width 13.1 % (11.5-14.5)
[2024-09-11 20:54] LABS: Alanine Aminotransferase 13 U/L (6-35); Albumin Level 3.7 g/dL (3.5-5.1); Alkaline Phosphatase 67 U/L (38-126); Anion Gap 4 mmol/L (4-12); Aspartate Amino Transferase 21 U/L (14-36); Bilirubin,Total 0.5 mg/dL (0.2-1.3); Blood Urea Nitrogen 24 mg/dL (7-17); Calcium 8.5 mg/dL (8.4-10.2); Carbon Dioxide 28 mmol/L (22-30); Chloride 102 mmol/L (98-107); Estimated CRCL calculation 31 ml/min; Estimated Glomerular Filt Rate 47; Glucose 102 mg/dL (65-110); Potassium 3.8 mmol/L (3.4-5.0); Sodium 134 mmol/L (137-145)
[2024-09-11] MEDS: MECLIZINE HCL 25 MG TABLET PO (21:19)
== END 2024-09-11 22:31 ==
PROVIDERS: Emergency Provider Emergency Medicine; PCP Internal Medicine
DX: R42 Dizziness and giddiness (principal); R51.9 Headache, unspecified; G30.0 Alzheimer's disease with early onset; F02.80 Dementia in other diseases classified elsewhere, unspecified severity, without behavioral disturbance, psychotic disturbance, mood disturbance, and anxiety; J43.9 Emphysema, unspecified; I10 Essential (primary) hypertension; E55.9 Vitamin D deficiency, unspecified; M81.0 Age-related osteoporosis without current pathological fracture; Z86.73 Personal history of transient ischemic attack (TIA), and cerebral infarction without residual deficits; Z85.850 Personal history of malignant neoplasm of thyroid; Z85.79 Personal history of other malignant neoplasms of lymphoid, hematopoietic and related tissues; Z87.891 Personal history of nicotine dependence; Z79.82 Long term (current) use of aspirin; Z79.899 Other long term (current) drug therapy
CPT/HCPCS: 36415; 70496; 70498; 71046; 80053; 85025; 93005; 96360; 99284; A9270; Q9967

== ENCOUNTER 2024-10-21 11:12 | Outpatient (CLI) | payer MEDICARE, MEDICAID, SELFPAY ==
--- OUTSIDE RECORDS SUMMARY | 2024-10-21 12:16 | XMS_ITS | Encounter Summary ---
Author Organization [facility] Address [address] [place] [address] Care Team Providers Care Director Nursing Service Name Role Phone Unavailable Primary Care Provider Unavailabl e Reason for Referral * Consultation (Urgent) - Closed Specialty Diagnoses / Procedures Referred By Contac t Referred To Contact Neurological Surgery Diagnoses Cerebral aneurysm, nonruptured (HCC) Luisa Ziegler APRN-CNP [address] [place] [address] [facility] [address] [place] [address] Referral ID Status Reason Start Date Expiration Date V isits Requested Visits Authorized [id number] Closed Specialty Services Required 07/29/2024 07/29/2025 1 1 RGLASS BOAT MAKER Encounter Details Date Type Department Care Team (Latest Contact Info) Description 07/29/2024 Transcribe Orders [facility] - Centralized Scheduling [address] [place] [address] Luisa Ziegler APRN-CNP [address] [place] [address] Cerebral aneurysm, nonruptured (HCC) Social History Tobacco Use Types Packs/Day Years Used Date Smoking Tobacco: Never Assessed Sex and Gender Information Value Date Recorded Sex Assigned at Not on file Gender Identity Not on file Sexual Orientation Not on file documented as of this encounter Plan of Treatment Scheduled Referrals Name Type Priority Associated Diagnoses Order Schedule AMB REFERRAL TO NEUROSURGERY Outpatient Referral Routine Cerebral aneurysm, nonruptured (HCC) 1 Occurrences starting 07/29/2024 until 07/29/2025 documented as of this encounter Visit Diagnoses Diagnosis Cerebral aneurysm, nonruptured (HCC)- Primary Cerebral aneurysm, nonruptured documented in this encounter
--- OUTSIDE RECORDS SUMMARY | 2024-10-21 12:16 | XMS_ITS | Clinical Summary ---
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 06/25/2015 Difficulty balancing 05/11/2015 Syncope due to orthostatic hypotension 4 Cervical disc disorder with myelopathy 4 Cerebral arterial aneurysm 06/24/2014 Mixed conductive and sensori neural hearing loss, unilateral with unrestricted hearing on the contralateral side 06/09/2014 Sensorineural hearing loss (SNHL) 06/09/2014 Cervicalgia 10/28/2013 Notalgia 10/28/2013 Hypertension 10/28/2013 Anaclitic depression 10/28/2013 Immunizations Name Administration Dates Next Due Influenza, Trivalent, Preservative Free, Intramu scular 06/25/2014 Surgical History Surgery Date Site/Laterality Comments [place] TONSILLECTOMY PRIMARY/SEC ONDARY <AGE 12 Tonsillectomy - (Added by TW Conv) NECK SURGERY Neck Surgery - C-spine (Added by TW Conv) TUBAL LIGATION Tubal Ligation - (Added by TW Conv) BREAST SURGERY Breast Surgery Removal Of Mammary Implant Bilateral - -2012 (Added by TW Conv) Medical History Medical History Date Comments Essential (primary) hypertension Hypertension - (Added by TW Conv) Major depressive disorder, s oma episode Depression - (Added by TW Co nv) Personal history of other di seases of the digestive system History of esophageal reflux - (Added by SHAN Conv) Family History Medical History Relation Name Comments Hypertension Mother Family history of hypertension - (Added by SHAN Conv) Cancer Other Family history of cancer - (Added by SHAN Conv) Hypertension Other Family history of hypertension - (Added by SHAN Conv) Relation Name Status Comments Mother Other Social History Tobacco Use Types Packs/Day Years Used Date Smoking Tobacco: Former Personal Safety Answer Date Recorded Getting School Help Needed Not on file 12/07 Comments Unknown Sex and Gender Information Value Date Recorded Sex Assigned at Not on file Legal Sex Female 9:08 PM NUCLEAR SPECTROSCOPIST Gender Identity Not on file Sexual Orientation Not on file Obstetrics History Last Filed Vital Signs Vital Sign Reading Time Taken Comments Blood Pressure 187/99 07/03/2015 9:12 AM CDT Pulse 81 07/03/2015 9:12 AM CDT Temperature - - Respiratory Rate - - Oxygen Saturation 100% 09/26/2013 11:18 AM NUCLEAR SPECTROSCOPIST Inhaled Oxygen Concentration - - Weight 58.8 kg (129 lb 9.7 oz) 07/03/2015 9:12 A M CDT Height 162.6 cm (5' 4 ) 07/03/2015 9:12 AM CDT Body Mass Index 22.25 07/03/2015 9:12 AM CDT Plan of Treatment Not on file Insurance [facility] Address: [facility] [address] [place] [address] Care Teams Military Communications Specialist Relationship Specialty Start Date End Date Noam Cleveland DO PCP - General Internal Medicine 10/31/18
--- OUTSIDE RECORDS SUMMARY | 2024-10-21 12:16 | XMS_ITS | Encounter Summary ---
Author Organization [facility] Address [address] [place] [address] Care Team Providers Care Healthcare Technician Name Role Phone Unavailable Primary Care Provider Unavailabl e Encounter Details Date Type Department Care Team (Late st Contact Info) Description 07/26/2024 Lab Requisition [facility] - Pathology Lab [address] [place] [address] David Foster MD [address] [place] [id number] Localized enlarged lymph nodes Social History Tobacco Use Types Packs/Day Years Used Date Smoking Tobacco: Never Assessed Sex and Gender Information Value Date Recorded Sex Assigned at Not on file Gender Identity Not on file Sexual Orientation Not on file documented as of this encounter Plan of Treatment Not on file documented as of this encounter Procedures Procedure Name Priority Date/Time Associated Diagnosis Comments FLOW CYTOMETRY TISSUE PANEL Routine 07/26/2024 9:30 AM CDT Localized enlarged lymph nodes documented in this encounter Results * FLOW CYTOMETRY TISSUE PANEL (07/26/2024 9:30 AM CDT) Case Report Flow Cytometry ?Case: [id number] ? Authorizing Provider: ??David Foster ? Collected: ? 07/26/2024 09:30 AM ? MD Slick ? [facility] ??Received: ?07/26/2024 01:43 PM ? Pathology Lab ? Pathologist: ? Laurie Calderón MD ? Specimen: ?Lymph Node ? 07/29/2024 12:59 PM [facility] Final Diagnosis Lymph node, site not specified, flow cytometric immunophenotypic analysis: - No diagnostic immunophenotypic evidence of a monoclonal B-cell or aberrant T-cell population in a paucicellular, low-viability specimen Comment: Flow cytometry does not identify diagnostic immunophenotypic evidence of monoclonal B-cells or an aberrant T-cell population. However, the specimen is markedly paucicellular and of low viability and therefore clinically significant cell populations may go undetected. Correlation with histologic review of the lymph node is required. 07/29/2024 12:59 PM [facility] Flow Cytometry Interpretation Viability: 41% B-cells: 16% of lymphocytes, polytypic, kappa:lambda ratio 2.8:1, no significant aberrant expression of CD5, CD10, or CD34 T-cells: up to 86% of lymphocytes, no diagnostic immunophenotypic aberrancy detected, CD4:CD8 ratio 2.2:1 A cytospin prepared from the flow cytometry specimen has been reviewed for advanced quality engineer purposes. 07/29/2024 12:59 PM [facility] Flow Cytometry Results Differential Result Comment Flow Cell Count /uL 340 Total Viability % 41.0 Lymphocytes % 83 Dim CD45 Region % 2 Monocytes % 0 Granulocytes % 13 07/29/2024 12:59 PM [facility] Reason for test Localized enlarged lymph nodes 785.6 07/29/2024 12:59 PM [facility] Client Specimen ID # [id number] 07/29/2024 12:59 PM [facility] Number of markers 16 were performed. A-18 Flow CD3 A-20 Flow CD10 A-22 Flow CD20 A-23 Flow CD23 A-28 Flow CD2 A-29 Flow CD4 A-32 Flow CD1a A-19 Flow CD5 A-21 Flow CD19 A-24 Flow CD34 A-25 Flow CD45 A-30 Flow CD7 A-31 Flow CD8 A-33 Flow CD30 A-26 [place] Ii+CD19+ A-27 Lambda+CD19+ 07/29/2024 12:59 PM [facility] Pathologist Location at [facility] 07/29/2024 12:59 PM [facility] Disclaimer Test performed at [facility], [address] [place] [address], [id number]. *The established laboratory minimum viability is 70%. Values below the minimum may result in the failure to find an abnormal population of cells. This test was developed and its performance characteristics determined by the Flow Cytometry Laboratory. It has not been cleared by the [place] Food and Drug Administration (FDA). The FDA has determined that such clearance or approval is not necessary. This test is used for clinical purposes. It should not be regarded as investigational or for research. This laboratory is regulated under the Clinical Laboratory Improvement Amendments of 1998 (CLIA) as a qualified to perform high complexity clinical testing. 07/29/2024 12:59 PM PATTERN TECHNICIAN [facility] Embedded Images 12:59 PM [facility] Pathology/Cytolo gy ENTIRE LYMPH NODE / Unknown 07/26/2024 9:30 AM CDT 07/26/2024 1:43 PM CDT David Foster MD LAB - PATHO LOGY/CYTOLOGY ORDERABLES Performing Organization Address City/State/[facility] Co de Phone Number [facility] [address] [phone] documented in this encounter Visit Diagnoses Diagnosis Localized enlarged lymph nodes Enlargement of lymph nodes documented in this encounter
--- OUTSIDE RECORDS SUMMARY | 2024-10-21 12:16 | XMS_ITS | Referral Summary ---
Author Organization [facility] [address] Address [address] [place] [address] Care Team Providers Care Sample Distributor Name Role Phone Noam Cleveland DO Primary Care Provider [phone]- [phone] Allergies No known active allergies Active Problems [...] Influenza, Trivalent, Preservative Free, Intramu scular 06/25/2014 Social History Tobacco Use Types Packs/Day Years Used Date Smoking Tobacco: Former Personal Safety Answer Date Recorded Getting School Help Needed Not on file 12/07 Comments Unknown Sex and Gender Information Value Date Recorded Sex Assigned at Not on file Legal Sex Female 9:08 PM REWIND OPERATOR Gender Identity Not on file Sexual Orientation Not on file Last Filed Vital Signs Vital Sign Reading Time Taken Comments Blood Pressure 187/99 07/03/2015 9:12 AM CDT Pulse 81 07/03/2015 9:12 AM CDT Temperature - - Respiratory Rate - - Oxygen Saturation 100% 09/26/2013 11:18 AM REWIND OPERATOR Inhaled Oxygen Concentration - - Weight 58.8 kg (129 lb 9.7 oz) 07/03/2015 9:12 A M CDT Height 162.6 cm (5' 4 ) 07/03/2015 9:12 AM CDT Body Mass Index 22.25 07/03/2015 9:12 AM CDT Plan of Treatment Not on file Insurance [facility] Address: [facility] [id number] [place] [id number] Care Teams Sample Distributor Relationship Specialty Start Date End Date Noam Cleveland DO PCP - General Internal Medicine 10/31/18
--- OUTSIDE RECORDS SUMMARY | 2024-10-21 12:16 | XMS_ITS | CONTINUITY OF CARE DOCUMENT ---
Author Name chapo cowan Address Unknown Organization [facility] Address [address] [place] [address] [address] [place] [address] Phone [phone] Care Team Providers Care [employer] Sharpshooter Name Role Phone huylorichapo haynes Unavailable Unavailable INSURANCE PROVIDERS Payer name Policy type / Coverage type Alvarado red democrat ID [id number]- OPEN ACCESS/PPO Other [id number]
--- OUTSIDE RECORDS SUMMARY | 2024-10-21 12:17 | XMS_ITS | Referral Summary ---
Author Organization [facility] Address [address] [place] [address] Care Team Providers Care Gift Basket Packer Name Role Phone Unavailable Primary Care Provider Unavailabl e Source Comments [facility],non-owned Affiliates and Associated Physician Practices is amultiple site organization consisting of ambulatory clinics and hospital sitesin [place], [place], [place] and [place]. This disclosure is being madepursuant to the Care Everywhere program and may not contain all information available regarding this patient. Last updated 18.[facility] Encounters Date Type Department Care Team Description 07/29/2024 Transcribe Orders [facility] - Centralized Scheduling [address] [place] [address] Luisa Ziegler, PRODUCTION CORRUGATOR-ADMINISTRATIVE SALES ASSISTANT Cerebral aneurysm, nonruptured (HCC) 07/26/2024 Lab Requisition [facility] - Pathology Lab [address] [place] [id number] David Foster MD Localized enlarged lymph nodes from Last 3 Months Social History Tobacco Use Types Packs/Day Years Used Date Smoking Tobacco: Never Assessed Sex and Gender Information Value Date Recorded Sex Assigned at Not on file Gender Identity Not on file Sexual Orientation Not on file Plan of Treatment Not on file Procedures Procedure Name Priority Date/Time Associated Diagnosis Comments FLOW CYTOMETRY TISSUE PANEL Routine 07/26/2024 9:30 AM CDT Localized enlarged lymph nodes from Last 3 Months Results * FLOW CYTOMETRY TISSUE PANEL (07/26/2024 9:30 AM CDT) Case Report Flow Cytometry ?Case: [id number] ? Authorizing Provider: ??David Foster ? Collected: ? 07/26/2024 09:30 AM ? MD Slick ? Ordering Location: ? [facility] - ??Received: ?07/26/2024 01:43 PM ? Pathology Lab ? Pathologist: ? Laurie Calderón MD ? Specimen: ?Lymph Node ? 07/29/2024 12:59 PM METER TESTER POLYPHASE [facility] Final Diagnosis Lymph node, site [...] lymph node is required. 07/29/2024 12:59 PM [facility] Flow Cytometry Interpretation Viability: 41% B-cells: 16% of lymphocytes, polytypic, kappa:lambda ratio 2.8:1, no significant aberrant expression of CD5, CD10, or CD34 T-cells: up to 86% of lymphocytes, no diagnostic immunophenotypic aberrancy detected, CD4:CD8 ratio 2.2:1 A cytospin prepared from the flow cytometry specimen has been reviewed for quality assurance qa lab analyst purposes. 07/29/2024 12:59 PM [facility] Flow Cytometry Results Differential Result Comment Flow Cell Count /uL 340 Total Viability % 41.0 Lymphocytes % 83 Dim CD45 Region % 2 Monocytes % 0 Granulocytes % 13 07/29/2024 12:59 PM [facility] Reason for test Localized enlarged lymph nodes 785.6 07/29/2024 12:59 PM [facility] Client Specimen ID # [id number] 07/29/2024 12:59 PM [facility] Number of markers 16 were performed. A-18 Flow CD3 A-20 Flow CD10 A-22 Flow CD20 A-23 Flow CD23 A-28 Flow CD2 A-29 Flow CD4 A-32 Flow CD1a A-19 Flow CD5 A-21 Flow CD19 A-24 Flow CD34 A-25 Flow CD45 A-30 Flow CD7 A-31 Flow CD8 A-33 Flow CD30 A-26 [place]+CD19+ A-27 Lambda+CD19+ 07/29/2024 12:59 PM [facility] Pathologist Location at [facility] 07/29/2024 12:59 PM [facility] Disclaimer Test performed at [facility], [address] [place] [address], [address]. *The established laboratory minimum viability is 70%. [...] high complexity clinical testing. 07/29/2024 12:59 PM [facility] Embedded Images 12:59 PM [facility] Pathology/Cytolo gy ENTIRE LYMPH NODE / Unknown 07/26/2024 9:30 AM CDT 07/26/2024 1:43 PM CDT David Foster MD LAB - PATHO LOGY/CYTOLOGY ORDERABLES Performing Organization Address City/State/[place] Co de Phone Number [facility] [address] [phone] from Last 3 Months Keshia Moy Personal/Family Self 1940
--- OUTSIDE RECORDS SUMMARY | 2024-10-21 12:17 | XMS_ITS | Clinical Summary ---
Author Organization [facility] Address [address] [place] [address] Care Team Providers Care Methods Engineer Name Role Phone Unavailable Primary Care Provider Unavailabl e Source Comments [facility],non-owned Affiliates and Associated Physician Practices is amultiple site organization consisting of ambulatory clinics and hospital sitesin [place], [place], [place] and [place]. This disclosure is being madepursuant to the Care Everywhere program and may not contain all information available regarding this patient. Last updated 18.[facility] Encounters Date Type Department Care Team Description 07/29/2024 Transcribe Orders [facility] - Centralized Scheduling [address] [place] [phone] Luisa Ziegler, GLOBAL ENGINEERING MANAGER-NET SOFTWARE ARCHITECT Cerebral aneurysm, nonruptured (HCC) 07/26/2024 Lab Requisition [facility] - Pathology Lab [address] [place] [phone] David Foster MD Localized enlarged lymph nodes from Last 3 Months Social History Tobacco Use Types Packs/Day Years Used Date Smoking Tobacco: Never Assessed Sex and Gender Information Value Date Recorded Sex Assigned at Not on file Gender Identity Not on file Sexual Orientation Not on file Plan of Treatment Health Maintenance Due Date Last Done Comments BONE DENSITY TESTING 1940 MEDICARE AWV ? 12 MONTHS 1940 DTAP/TDAP/TD VACCINES (1 - Tdap) 12/30/1959 PNEUMOCOCCAL VACCINE 50+ (1 of 1 - PCV) 1990 ZOSTER VACCINE (1 of 2) 1990 Respiratory Syncytial Virus (RSV) Vaccine Pt: or over 60 yrs (1 - 1-dose 75+ series) 12/30/2015 COVID-19 VACCINE ( - 2023-2 5 season) 2024 INFLUENZA VACCINE (#1) 2024 DEPRESSION SCREENING 09/25/2024 HEPATITIS B VACCINE Aged Out No longe r eligible based on patient's age to complete this topic HIB VACCINE Aged Out No longer eligi ble based on patient's age to complete this topic HPV VACCINE Aged Out No longer eligi ble based on patient's age to complete this topic MENINGOCOCCAL (Group B) VACCINE Aged Out No longer eligible based on patient's age to complete this topic MENINGOCOCCAL VACCINE Aged Out No izzy trindiad eligible based on patient's age to complete this topic Procedures Procedure Name Priority Date/Time Associated Diagnosis Comments FLOW CYTOMETRY TISSUE PANEL Routine 07/26/2024 9:30 AM CDT Localized enlarged lymph nodes from Last 3 Months Results * FLOW CYTOMETRY TISSUE PANEL (07/26/2024 9:30 AM CDT) Case Report Flow Cytometry ?Case: [id number] ? Authorizing Provider: ??David Foster ? Collected: ? 07/26/2024 09:30 AM ? MD Slick ? Ordering Location: ? [facility] - ??Received: ?07/26/2024 01:43 PM ? Pathology Lab ? Pathologist: ? Laurie Calderón MD ? Specimen: ?Lymph Node ? 07/29/2024 12:59 PM [facility] Final Diagnosis Lymph [...] lymph node is required. 07/29/2024 12:59 PM [facility] Flow Cytometry Interpretation Viability: 41% B-cells: 16% of lymphocytes, polytypic, kappa:lambda ratio 2.8:1, no significant aberrant expression of CD5, CD10, or CD34 T-cells: up to 86% of lymphocytes, no diagnostic immunophenotypic aberrancy detected, CD4:CD8 ratio 2.2:1 A cytospin prepared from the flow cytometry specimen has been reviewed for senior software quality analyst purposes. 07/29/2024 12:59 PM [facility] Flow Cytometry Results Differential Result Comment Flow Cell Count /uL 340 Total Viability % 41.0 Lymphocytes % 83 Dim CD45 Region % 2 Monocytes % 0 Granulocytes % 13 07/29/2024 12:59 PM HEDIS COORDINATOR [facility] Reason for test Localized enlarged lymph nodes 785.6 07/29/2024 12:59 PM [facility] Client Specimen ID # [id number] 07/29/2024 12:59 PM [facility] Number of markers 16 were performed. A-18 Flow CD3 A-20 Flow CD10 A-22 Flow CD20 A-23 Flow CD23 A-28 Flow CD2 A-29 Flow CD4 A-32 Flow CD1a A-19 Flow CD5 A-21 Flow CD19 A-24 Flow CD34 A-25 Flow CD45 A-30 Flow CD7 A-31 Flow CD8 A-33 Flow CD30 A-26 [place]+CD19+ A-27 Lambda+CD19+ 07/29/2024 12:59 PM [facility] Pathologist Location at [facility] 07/29/2024 12:59 PM [facility] Disclaimer Test performed at [facility], [address] [place] [address], [facility]. *The established laboratory minimum viability is 70%. [...] high complexity clinical testing. 07/29/2024 12:59 PM [facility] LAB Embedded Images 12:59 PM [facility] Pathology/Cytolo gy ENTIRE LYMPH NODE / Unknown 07/26/2024 9:30 AM CDT 07/26/2024 1:43 PM CDT David Foster MD LAB - PATHO LOGY/CYTOLOGY ORDERABLES [facility] [address] [place] [address]. [place] [address], [facility] [phone] from Last 3 Months Keshia Moy Personal/Family Self 1940
--- OUTSIDE RECORDS SUMMARY | 2024-10-21 12:17 | XMS_ITS | Continuity of Care Document ---
Author Organization [facility] Address [address] [place] [address] [address] [place] [address] Phone Care Team Providers Care Carbon Paste Mixer Operator Name Role Phone Reyes OD, Francisco Javier Unavailable Unavailable Advance Directives Directive Yes / No Effective Date File Name No Information Encounters Encounter Description Practice Location Reason(s) For Visit Diagnoses Date Provider Providers Copied on Encounter [facility], [address], [place], [place], [id number], [place] tel:[phone] [facility] [address] No Information [phone] Reyes OD Francisco Javier. [address] , [address], [place], [address], [place]. tel:[phone] Family History Family Member Type Diagnosis Age At Onset No Information Payers Payer name Insurance type Covered constitution party ID Authoriza timikhail(s) [employer] CI [id number] Social History Type Description Quantity Date Captured Comments Sex Female Smoking Status No Information Chief Complaint And Reason For Visit No Information Reason For Referral Reason For Referral No Information History Of Present Illness Encounter Date Complaint History Of Prese nt Illness No Information Functional Status Date Functional Assessmen t No Information Instructions Date Instruction Additional Infor mation No Information Assessments Type Assessment Date No Information Patient Care Teams Name Effective Dates (start - stop) Status Members No Information
--- OUTSIDE RECORDS SUMMARY | 2024-10-21 12:17 | XMS_ITS | Clinical Summary ---
Author Organization [facility] Nick crespo Theron Address [address] [place] [address] Care Team Providers Care Banking Pin Adjuster Name Role Phone Unavailable Primary Care Provider Unavailabl e Allergies No known active allergies Medications alendronate (FOSAMAX) 70 mg tablet 08/11/2024 Active rivastigmine (EXELON) 4.6 mg/24 hour patch 09/04/2024 Active losartan (COZAAR) 25 mg tablet 08/11/2024 Active albuterol sulfate HFA 90 mcg/actuation aerosol inhaler 09/03/2024 Act tiffanie acetaminophen (TYLENOL) 325 mg tablet 08/14/2024 Active omeprazole (PriLOSEC) 20 mg Capsule, Delayed Release(E.C.) 08/11/2024 Activ e Bevespi Aerosphere 9-4.8 mcg HFA Aerosol Inhaler 09/03/2024 Act tiffanie triamcinolone acetonide (KENALOG) 0.1 % Ointment 09/03/2024 Active Active Problems No known active problems Encounters Date Type Department Care Team Description 10/17/2024 External Device Data [facility] ABSTRACTION Provider, Abstract 10/16/2024 External Device Data [facility]CTION Provider, Abstract 10/15/2024 External Device Data [facility]CTION Provider, Abstract 10/08/2024 External Device Data [facility]CTION Provider, Abstract 09/17/2024 External Device Data [facility]STRACTION Provider, Abstract 09/11/2024 Orders Only [facility] Oncology and Hematology - [address] [place] [address] Ja Rojas MD 09/10/2024 3:00 PM LABEL STITCHER Office Visit [facility] - [address] [place] [address] Ja Rojas MD Thyroid cancer (CMS/HCC) (Primary Dx) from Last 3 Months Family History Medical History Relation Name Comments No Known Problems Child 1 No Known Problems Child 2 No Known Problems Father No Known Problems Mother Breast Cancer Sister Relation Name Status Comments Child 1 Alive Child 2 Alive Father Mother Sister Alive Social History Tobacco Use Types Packs/Day Years Used Date Smoking Tobacco: Former Cigarettes 0.5 40 Q uit: 09/10/2016 Tobacco Cessation:Counseling Given: Not Answered Alcohol Use Standard Drinks/Week Comments Never 0 (1 standard drink = 0.6 oz pur e alcohol) Comments Unknown Sex and Gender Information Value Date Recorded Sex Assigned at Not on file Legal Sex Female 12:12 PM LABEL STITCHER Gender Identity Not on file Sexual Orientation Not on file Last Filed Vital Signs Vital Sign Reading Time Taken Comments Blood Pressure 157/103 09/10/2024 2:54 PM LABEL STITCHER Pulse 79 09/10/2024 2:54 PM LABEL STITCHER Temperature 36.8 ??C (98.2 ??F) 09/10/2024 2:54 PM CS T Respiratory Rate 16 09/10/2024 2:54 PM LABEL STITCHER Oxygen Saturation 95% 09/10/2024 2:54 PM LABEL STITCHER Inhaled Oxygen Concentration - - Weight 61.2 kg (135 lb) 09/10/2024 2:54 PM LABEL STITCHER Height 157.5 cm (5' 2 ) 09/10/2024 2:54 PM LABEL STITCHER Body Mass Index 24.69 09/10/2024 2:54 PM LABEL STITCHER Plan of Treatment Health Maintenance Due Date Last Done Comments DTAP/TDAP/TD VACCINES (1 - Tdap) 12/30/1959 PNEUMOCOCCAL VACCINE 65+ YEARS (1 of 1 - PCV) 12/29/18 91 ZOSTER VACCINE (1 of 2) 1990 OSTEOPOROSIS SCREENING 2005 RSV VACCINE (60+ or ) (1 - 1-dose 75+ series) 12/30/2015 INFLUENZA VACCINE (#1) 2024 06/25/2014 Procedures Procedure Name Priority Date/Time Associated Diagnosis Comments COMPREHENSIVE METABOLIC PANEL Routine 09/10/2024 10:38 AM LABEL STITCHER CBC WITH DIFFERENTIAL Routine 09/10/2024 10:17 AM LABEL STITCHER from Last 3 Months Results * COMPREHENSIVE METABOLIC PANEL (09/10/2024 10:38 AM LABEL STITCHER) Blood Ja Rojas MD CHEMISTRY ORDERABLES Final Resu lt * CBC WITH DIFFERENTIAL (09/10/2024 10:17 AM LABEL STITCHER) Blood Ja Rojas MD HEMATOLOGY ORDERABLES Final Res ult from Last 3 Months Insurance MEDICARE PART A [place] B [facility] [place] [facility] [place]
--- OUTSIDE RECORDS SUMMARY | 2024-10-21 12:17 | XMS_ITS | Patient Health Summary ---
Author Organization [facility] Address [address] [place] [address] Care Team Providers Care Carbon Sequestration Plant Engineer Name Role Phone Unavailable Primary Care Provider Unavailabl e Note from [facility],non-owned Affiliates and Associated Physician Practices is amultiple site organization consisting of ambulatory clinics and hospital sitesin [place], [place], [place] and [place]. This disclosure is being madepursuant to the Care Everywhere program and may not contain all information available regarding this patient. Last updated 18.[facility] Social History Tobacco Use Types Packs/Day Years Used Date Smoking Tobacco: Never Assessed Sex and Gender Information Value Date Recorded Sex Assigned at Not on file Gender Identity Not on file Sexual Orientation Not on file Procedures * FLOW CYTOMETRY TISSUE PANEL(Performed 07/26/2024) Performed for Localized enlarged lymph nodes Results * FLOW CYTOMETRY TISSUE PANEL (07/26/2024 9:30 AM CDT) Case Report Flow Cytometry ?Case: [id number] ? Authorizing Provider: ??David Foster ? Collected: ? 07/26/2024 09:30 AM ? MD Slick ? Ordering Location: ? [facility] - ??Received: ?07/26/2024 01:43 PM ? Pathology Lab ? Pathologist: ? Laurie Calderón MD ? Specimen: ?Lymph Node ? 07/29/2024 12:59 PM [facility] Final Diagnosis Lymph [...] lymph node is required. 07/29/2024 12:59 PM [facility] Flow Cytometry Interpretation Viability: 41% B-cells: 16% of lymphocytes, polytypic, kappa:lambda ratio 2.8:1, no significant aberrant expression of CD5, CD10, or CD34 T-cells: up to 86% of lymphocytes, no diagnostic immunophenotypic aberrancy detected, CD4:CD8 ratio 2.2:1 A cytospin prepared from the flow cytometry specimen has been reviewed for quality reviewer purposes. 07/29/2024 12:59 PM [facility] Flow Cytometry Results Differential Result Comment Flow Cell Count /uL 340 Total Viability % 41.0 Lymphocytes % 83 Dim CD45 Region % 2 Monocytes % 0 Granulocytes % 13 07/29/2024 12:59 PM [facility] Reason for test Localized enlarged lymph nodes 785.6 07/29/2024 12:59 PM [facility] Client Specimen ID # [id number] 07/29/2024 12:59 PM [facility] Number of markers 16 were performed. A-18 Flow CD3 A-20 Flow CD10 A-22 Flow CD20 A-23 Flow CD23 A-28 Flow CD2 A-29 Flow CD4 A-32 Flow CD1a A-19 Flow CD5 A-21 Flow CD19 A-24 Flow CD34 A-25 Flow CD45 A-30 Flow CD7 A-31 Flow CD8 A-33 Flow CD30 A-26 [place]+CD19+ A-27 Lambda+CD19+ 07/29/2024 12:59 PM [facility] Pathologist Location at [facility] 07/29/2024 12:59 PM [facility] Disclaimer Test performed at [facility], [address] [place] [address], [address]. *The established laboratory minimum viability is 70%. [...] high complexity clinical testing. 07/29/2024 12:59 PM [facility] Embedded Images 12:59 PM [facility] Pathology/Cytolo gy ENTIRE LYMPH NODE / Unknown 07/26/2024 9:30 AM CDT 07/26/2024 1:43 PM CDT David Foster MD LAB - PATHO LOGY/CYTOLOGY ORDERABLES Performing Organization Address City/State/[facility] Co de Phone Number [facility] [address] [facility] [place] [address], [facility] [phone]
[2024-10-21 16:25] LABS: Basophils Percent Auto 0.3 % (0.2-1.2); Eosinophils Absolute Auto 0.1 K/mm3 (0-0.3); Eosinophils Percent Auto 3.1 % (0-4.4); Hemoglobin 11.9 g/dL (12.0-15.0); Immature Granulocyte Absolute 0.01 K/mm3 (0.00-0.031); Immature Granulocyte Percent A 0.3 % (0-0.5); Lymphocytes Absolute Auto 0.85 K/mm3 (0.9-3.2); Lymphocytes Percent Auto 21.7 % (18.3-44.2); Mean Corpuscular HGB Conc 32.2 g/dl (32-36); Mean Corpuscular Hemoglobin 30.4 pg (26-34); Mean Corpuscular Volume 94.4 fl (80-100); Mean Platelet Volume 11.2 fl (7.4-10.4); Monocytes Absolute Auto 0.6 K/mm3 (0.1-0.6); Monocytes Percent Auto 16.1 % (2.6-8.5); Neutrophils Absolute Auto 2.3 K/mm3 (1.3-6.7); Neutrophils Percent Auto 58.5 % (45.5-73.1); Platelet Count Result 171 k/mm3 (150-375); Red Blood Count 3.92 M/mm3 (4.2-5.4); White Blood Count 3.9 K/mm3 (4.5-10.0)
[2024-10-21 16:41] LABS: Alanine Aminotransferase 16 U/L (6-35); Albumin Level 4.2 g/dL (3.5-5.1); Alkaline Phosphatase 84 U/L (38-126); Anion Gap 9 mmol/L (4-12); Aspartate Amino Transferase 38 U/L (14-36); Bilirubin,Total 0.5 mg/dL (0.2-1.3); Blood Urea Nitrogen 19 mg/dL (7-17); Calcium 8.9 mg/dL (8.4-10.2); Carbon Dioxide 28 mmol/L (22-30); Chloride 99 mmol/L (98-107); Estimated Glomerular Filt Rate > 60; Glucose 91 mg/dL (65-110); Potassium 4.4 mmol/L (3.4-5.0); Sodium 136 mmol/L (137-145)
[2024-10-21 17:41] LABS: Folic Acid 8.6 ng/mL (2.76->20)
== END 2024-10-21 11:13 | disposition home or self-care (01) ==
LOC: ANHGOSHLAB 11:13
PROVIDERS: PCP Internal Medicine; Visit Provider Internal Medicine
DX: D64.9 Anemia, unspecified (principal)
CPT/HCPCS: 36415; 80053; 82607; 82728; 82746; 85025

== ENCOUNTER 2024-11-21 23:31 | Emergency (ER) | payer MEDICARE, MEDICAID, SELFPAY ==
[2024-11-21 23:29] VITALS: BP 224/106; PULSE 77; RESP 15; TEMP 36.4; O2SAT 97
[2024-11-22 00:04] VITALS: BP 194/86; PULSE 62; RESP 15; O2SAT 99
[2024-11-22 00:42] LABS: Basophils Absolute Auto 0.1 K/mm3 (0.0-0.1); Basophils Percent Auto 0.8 % (0.2-1.2); Eosinophils Absolute Auto 0.3 K/mm3 (0-0.3); Eosinophils Percent Auto 4.6 % (0-4.4); Hemoglobin 10.8 g/dL (12.0-15.0); Immature Granulocyte Absolute 0.01 K/mm3 (0.00-0.031); Immature Granulocyte Percent A 0.2 % (0-0.5); Lymphocytes Absolute Auto 1.35 K/mm3 (0.9-3.2); Lymphocytes Percent Auto 21.6 % (18.3-44.2); Mean Corpuscular HGB Conc 32.7 g/dl (32-36); Mean Corpuscular Hemoglobin 29.9 pg (26-34); Mean Corpuscular Volume 91.4 fl (80-100); Mean Platelet Volume 9.5 fl (7.4-10.4); Monocytes Absolute Auto 0.6 K/mm3 (0.1-0.6); Monocytes Percent Auto 10.1 % (2.6-8.5); Neutrophils Absolute Auto 3.9 K/mm3 (1.3-6.7); Neutrophils Percent Auto 62.7 % (45.5-73.1); Platelet Count Result 172 k/mm3 (150-375); Red Blood Count 3.61 M/mm3 (4.2-5.4); Red Cell Distribution Width 12.8 % (11.5-14.5); White Blood Count 6.3 K/mm3 (4.5-10.0)
[2024-11-22 00:49] VITALS: BP 196/90; PULSE 80; RESP 15; O2SAT 94
[2024-11-22 00:52] LABS: Alanine Aminotransferase 17 U/L (6-35); Albumin Level 3.8 g/dL (3.5-5.1); Alkaline Phosphatase 75 U/L (38-126); Anion Gap 10 mmol/L (4-12); Aspartate Amino Transferase 23 U/L (14-36); Bilirubin,Total 0.5 mg/dL (0.2-1.3); Blood Urea Nitrogen 23 mg/dL (7-17); Calcium 9.3 mg/dL (8.4-10.2); Carbon Dioxide 26 mmol/L (22-30); Chloride 100 mmol/L (98-107); Estimated CRCL calculation 40 ml/min; Estimated Glomerular Filt Rate > 60; Glucose 108 mg/dL (65-110); Lipase 145 U/L (23-300); Potassium 4.3 mmol/L (3.4-5.0); Sodium 136 mmol/L (137-145)
[2024-11-22 00:56] LABS: Prothrombin Time 13.3 Seconds (11.1-14.7)
[2024-11-22 00:57] LABS: Partial Thromboplastin Time 29.1 Seconds (22.3-36.8)
[2024-11-22 01:04] LABS: Troponin I < 0.012 ng/mL (0.000-0.034)
--- NOTE | 2024-11-22 02:24 | ED.RECABL ---
HPI - Recheck/Abnormal Lab/Rx General Chief Complaint: Recheck/Abnormal Lab/Rx Stated Complaint: HTN EMERGENCY Time Seen by Provider: 11/22/24 00:47 History of Present Illness HPI narrative: 83-year-old female with a past medical history including chronic hypertension, prior CVA, dementia, chronic dizziness, stage IV thyroid cancer. Today patient presents to the emergency department from her [facility] facility for concerns of hypertension elevated blood pressure readings. Patient has not had any symptoms. Patient denies any headache or vision changes. She states she is chronically dizzy and this is not new for her. Denies any weakness, chest pain, shortness a breath, back pain, belly pain. She normally gets dizzy when she ambulates. States that she did not take her blood pressure medications this evening and was sent to the hospital for evaluation. Her blood pressure has been elevated to this level in the past and on review of the EMR this is not new for her and she sometimes presents with greater than 200 systolic. Patient's home medications include amlodipine, losartan. Recent medication adjustments with her PCP to double her losartan dose but unclear for halfway has been giving her 50 mg doses as is still noted at 25. Related Data Home Medications ?Medication ?Instructions ?Recorded ?Confirmed ?Last Taken ?Type aspirin 81 mg tablet,delayed 81 mg PO DAILY 07/21/20 10/21/24 Unknown History release (Adult Aspirin Regimen) cholecalciferol (vitamin D3) 25 25 mcg PO DAILY 09/07/20 10/21/24 Unknown History mcg (1,000 unit) tablet diphenhydramine HCl 25 mg capsule 25 mg PO .PRN PRN Sleep 02/23/23 10/21/24 Unknown History (Allergy Relief (diphenhydramine)) melatonin 5 mg tablet 5 mg PO QPM 02/23/23 10/21/24 Unknown History acetaminophen 325 mg tablet 325 mg PO Q6H PRN 02/06/24 10/21/24 Unknown History Allergies Allergy/AdvReac Type Severity Reaction Status Date / Time No Known Allergies Allergy Verified 11/21/24 23:35 Review of Systems Review of Systems: As reviewed above in HPI [facility] Past Medical History Medical History COPD (chronic obstructive pulmonary disease) 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 Dementia Dizziness HTN (hypertension) CVA (cerebral vascular accident) Vitamin D deficiency Osteoporosis Insomnia Age-related osteoporosis without current pathological fracture Chronotropic incompetence Dementia in other diseases classified elsewhere without behavioral disturbance Depression 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 Fatigue Frequent headaches Paresthesia of finger Essential hypertension Headache Surgical History Surgical History History of neck surgery Family History Family History Father Family history of lung cancer Hypertension Mother Hypertension Depression Social History Social History Smoking packs per day: 0.5 Smoking cigarettes per day: 10.0 Years smoked: 10 Smoking pack-years: 5.00 Smoking status: Former smoker Tobacco type: cigarettes Smoking end date: 09/25/10 Alcohol intake: current Substance use: never Do You Feel Safe in your Home?: Yes Lack of Transportation: No Lack of Food: Sometimes True Current Housing: I Have Housing Concerned About Future Housing: No Difficulty Paying Gas/Electric Bills: No Difficulty Paying for Meds: No Currently Unemployed: No Education: High School Diploma/GED Difficulty w/ Childcare or Family Care: No Living arrangements: assisted living Additional living arrangements comments: [facility] Occupation/Education: retired 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 Mucous membranes moist. NECK: Supple. CHEST: [Clear to auscultation. No respiratory distress.] HEART: [Regular rate and rhythm]. No murmur heard. 2+ radial and dorsalis pedis pulses, warm extremities. ABDOMEN: [Soft, nondistended], [nontender], [No rigidity or guarding] EXTREMITIES: Normal range of motion. [No edema.] SKIN: Warm, dry, no rash. NEURO: [No focal deficits]. Alert and oriented [x3.] Able to ambulate. No drift, no facial asymmetry, no vision disturbances. NIH stroke scale 0. PSYCH: [Normal mood and affect.] Course Vital Signs Vital signs: Vital Signs Temperature 36.4 C 11/21/24 23:29 Pulse Rate 77 11/21/24 23:29 Respiratory Rate 15 11/21/24 23:29 Blood Pressure 224/106 H 11/21/24 23:29 Pulse Oximetry 97 11/21/24 23:29 Oxygen Delivery Room Air 11/21/24 23:29 Temperature 36.4 C 11/21/24 23:29 Pulse Rate 80 11/22/24 00:49 Respiratory Rate 15 11/22/24 00:49 Blood Pressure 196/90 H 11/22/24 00:49 Pulse Oximetry 94 11/22/24 00:49 Oxygen Delivery Room Air 11/21/24 23:29 MDM - Recheck/Abnormal Lab/Rx MDM Narrative Medical decision making narrative: 83-year-old female with history of chronic hypertension, dementia, prior CVA/TIA, thyroid cancer. She presents to the emergency room with elevated blood pressure readings but no symptoms. Patient states that she denies any vision changes, headache, nauseousness, chest pain, shortness a breath, abdominal pain, back pain. She states she is chronically dizzy and this is not new for her. She has an unremarkable assessment, normal neurovascular assessment. 2+ radial and dorsalis pedis pulses, warm extremities, no visual disturbances or nystagmus. No drift, facial asymmetry. We will evaluate for any end-organ damage with troponin, CBC, CMP, CT head, EKG, chest x-ray. She was provided aspirin in triage. Suspicion presently is for asymptomatic hypertension, asymptomatic hypertensive urgency, low suspicion for hypertensive emergency, end-organ damage, and STEMI, intracranial pathology such as stroke or bleed. Patient's workup shows no leukocytosis. Hemoglobin at her baseline. Normal platelet count. Negative troponins. Coagulation panel within normal limits, normal electrolytes, normal renal and hepatic function panel. Patient's chest x-ray shows no pneumonia or pneumothorax per my interpretation, compared to previous chest x-ray on 09/11 it seems to be around baseline. CT of the head shows no acute intracranial hemorrhage, no new stroke. Chronic encephalomalacia from prior infarct. EKG shows sinus rhythm, no signs of acute ischemic event. Given patient's unremarkable workup she was given a dose of her oral nightly antihypertensives that she has missed and will be safely discharged home back to her facility. She will follow-up with regular doctor for titration of her blood pressure medicines. Patient comfortable this plan. Medical Records Attestation: I reviewed the patient's medical records. Lab Data Attestation: I reviewed the patient's lab results. 11/22/24 00:36 11/22/24 00:36 Labs: Lab Results 11/22/24 Range/Units 00:36 WBC 6.3 (4.5-10.0) K/mm3 RBC 3.61 L (4.2-5.4) M/mm3 Hgb 10.8 L (12.0-15.0) g/dL Hct 33.0 L (37.0-47.0) % MCV 91.4 (80-100) fl MCH 29.9 (26-34) pg MCHC 32.7 (32-36) g/dl RDW 12.8 (11.5-14.5) % Plt Count 172 (150-375) k/mm3 MPV 9.5 (7.4-10.4) fl Immature Gran % (Auto) 0.2 (0-0.5) % Neut % (Auto) 62.7 (45.5-73.1) % Lymph % (Auto) 21.6 (18.3-44.2) % Prairie % (Auto) 10.1 H (2.6-8.5) % Eos % (Auto) 4.6 H (0-4.4) % Baso % (Auto) 0.8 (0.2-1.2) % Lymph # (Auto) 1.35 (0.9-3.2) K/mm3 Prairie # (Auto) 0.6 (0.1-0.6) K/mm3 Eos # (Auto) 0.3 (0-0.3) K/mm3 Baso # (Auto) 0.1 (0.0-0.1) K/mm3 Abs Immat Gran (auto) 0.01 (0.00-0.031) K/mm3 Absolute Neuts (auto) 3.9 (1.3-6.7) K/mm3 Absolute Nucleated RBC 0.000 (0.0-0.012) K/mm3 Nucleated RBC % 0.0 (0.0-0.2) % PT 13.3 (11.1-14.7) Seconds INR 1.0 APTT 29.1 (22.3-36.8) Seconds Sodium 136 L (137-145) mmol/L Potassium 4.3 (3.4-5.0) mmol/L Chloride 100 (98-107) mmol/L Carbon Dioxide 26 (22-30) mmol/L Anion Gap 10 (4-12) mmol/L BUN 23 H (7-17) mg/dL Creatinine 0.72 (0.7-1.0) mg/dL Estim Creat Clear Calc 40 ml/min Estimated GFR > 60 (59 - ) Glucose 108 (65-110) mg/dL Calcium 9.3 (8.4-10.2) mg/dL Total Bilirubin 0.5 (0.2-1.3) mg/dL AST 23 (14-36) U/L ALT 17 (6-35) U/L Alkaline Phosphatase 75 (38-126) U/L Troponin I < 0.012 (0.000-0.034) ng/mL Total Protein 7.0 (6.3-8.2) g/dL Albumin 3.8 (3.5-5.1) g/dL Lipase 145 (23-300) U/L Imaging Data Attestation: I personally reviewed and interpreted this imaging study as follows: My impression: No acute interval change on patient's chest x-ray, CT head without any acute hemorrhage or mass effect, stroke. Chronic old infarcts and encephalomalacia. Discharge Plan Discharge Clinical Impression: Asymptomatic hypertensive urgency, Chronic hypertension, Chronic vertigo Patient Disposition: [facility] Living Condition: Stable Instructions: Antibiotic Form Additional Instructions: Follow-up with regular doctor about changing her blood pressure medications continue taking the current doses into the can see her doctor. Return with any new or worsening concerns such as weakness, numbness, chest pain, shortness a breath, back pain, headache or any other concerns. Patient Language: Surinamese Prescriptions: No Action aspirin [Adult Aspirin Regimen] 81 mg tablet,delayed release (DR/EC) 81 mg PO DAILY melatonin 5 mg tablet 5 mg PO QPM Patient Comments: 5mg (1 tablet every evening) diphenhydramine HCl [Allergy Relief(diphenhydramin)] 25 mg capsule 25 mg PO .PRN PRN (Reason: Sleep) Patient Comments: Only give PRN- not daily acetaminophen 325 mg tablet 325 mg PO Q6H PRN Bevespi Aerosphere 9-4.8 mcg HFA aerosol inhaler 2 puff inhalation BID Qty: 10.7 3RF albuterol sulfate 90 mcg/actuation HFA aerosol inhaler 2 inh inhalation Q4H PRN (Reason: shortness of breath or wheezing) Qty: 8.5 2RF losartan 25 mg tablet 50 mg PO DAILY Qty: 90 1RF triamcinolone acetonide 0.1 % ointment 1 applic topical BID Qty: 30 0RF Rx Instructions: PLEASE ASSIST PATIENT WITH APPLICATION EDUCATION amlodipine 10 mg tablet 10 mg PO DAILY Qty: 14 0RF escitalopram oxalate 10 mg tablet 10 mg PO DAILY Qty: 90 1RF cholecalciferol (vitamin D3) 25 mcg (1,000 unit) tablet 25 mcg PO DAILY alendronate [Fosamax] 70 mg tablet 70 mg PO WEEKLY Qty: 12 0RF omeprazole 20 mg capsule,delayed release(DR/EC) 20 mg PO DAILY Qty: 90 0RF rivastigmine 4.6 mg/24 hour patch 24 hour 1 patch transdermal DAILY Qty: 30 5RF Follow-up/Referrals: Noam Cleveland DO [Primary Care Provider] - Stand Alone Forms: Custodial Discharge Time of Disposition: 02:33
[2024-11-22] MEDS: ACETAMINOPHEN 500 MG TABLET 1000 MG PO (02:45)
[2024-11-22] MEDS: LOSARTAN POTASSIUM 50 MG TABLET PO (02:46)
[2024-11-22] MEDS: amLODIPine BESYLATE 10 MG TABLET PO (02:46)
[2024-11-22 04:11] VITALS: BP 168/106; PULSE 89; RESP 15; O2SAT 95
== END 2024-11-22 04:12 ==
PROVIDERS: Emergency Provider Student in an Organized Health Care Education/Training Program; PCP Internal Medicine
DX: I10 Essential (primary) hypertension (principal); R42 Dizziness and giddiness; C73 Malignant neoplasm of thyroid gland; C77.0 Secondary and unspecified malignant neoplasm of lymph nodes of head, face and neck; G30.0 Alzheimer's disease with early onset; F02.80 Dementia in other diseases classified elsewhere, unspecified severity, without behavioral disturbance, psychotic disturbance, mood disturbance, and anxiety; J43.9 Emphysema, unspecified; J44.89 Other specified chronic obstructive pulmonary disease; E55.9 Vitamin D deficiency, unspecified; M81.0 Age-related osteoporosis without current pathological fracture; F32.A Depression, unspecified; Z86.73 Personal history of transient ischemic attack (TIA), and cerebral infarction without residual deficits; Z87.891 Personal history of nicotine dependence; Z79.82 Long term (current) use of aspirin; Z79.899 Other long term (current) drug therapy; R94.31 Abnormal electrocardiogram [ECG] [EKG]
CPT/HCPCS: 36415; 70450; 71046; 80053; 83690; 84484; 85025; 85610; 85730; 93005; 99284; A9270

== ENCOUNTER 2025-03-27 15:50 | Inpatient (IN) | payer MEDICARE, MEDICAID, SELFPAY ==
[2025-03-27] VITALS (22 sets, daily range): BP systolic 93–170; BP diastolic 65–124; PULSE 73–94; RESP 17–39; TEMP 36.7; O2SAT 95–100
--- NOTE | ~2025-03-27 | CT_ITS ---
CT cervical spine wo con Ordering provider: Vianney Cook PA-C History: . fall . Comparison: June 29, 2024 Technique: CT of the cervical spine was performed without contrast. Sagittal and coronal reformatted images were also obtained and reviewed. Automated exposure control and iterative reconstruction elizabeth hnique were employed. The dose-length product was 249.83 mGy-cm. FINDINGS: VERTEBRAE: No subluxation or acute fracture. The occipital condyles are intact. Postoperative changes are seen in the lower cervical and upper thoracic spine. DISC SPACES: Narrowing of the disc C3-C4 and C5-C6. Multilevel facet joint disease. Multilevel uncove rtebral joint osteoarthritic changes. Multilevel intervertebral foraminal narrowing. PARASPINOUS SOFT TISSUES: Pleural base nodule seen in the left lung upper lobe with pleural thickenin g which measures 2.2 x 0.8 cm unchanged from previous examination. Bilateral carotid atherosclerotic changes. IMPRESSION: No acute osseous abnormality cervical spine. Postoperative changes in the spine. Pleural-based nodule on the left upper lobe unchanged from previous examination Reviewed, dictated and finalized at location A.
--- NOTE | ~2025-03-27 | XR_ITS ---
XR chest 1V portable Ordering provider: Alan Shultz MD History: 84 years Female with . sob syncopal . Comparison: November 22, 2024 FINDINGS: MEDIASTINUM: The cardiac silhouette is slightly enlarged. LUNGS: No infiltrates, effusions or pneumothorax. Underlying fibrotic changes. OTHER: No free air under the diaphragm. Levoscoliosis with degenerative changes of the spine. IMPRESSION: No acute cardiopulmonary pathology. Reviewed, dictated and finalized at location A.
--- NOTE | ~2025-03-27 | CT_ITS ---
CT brain wo con Ordering provider: Vianney Cook PA-C History: 84 years Female with . fall . Comparison: None. Technique: CT of the head without contrast. Radiation reduction technique utilized.The dose-length pr oduct was 681 mGy-cm. FINDINGS: BRAIN PARENCHYMA AND CSF SPACES: Mild leukoaraiosis and diffuse cortical atrophy. Mild atheromatous d isease. Encephalomalacia seen in the right parieto-occipital area and left cerebellar hemisphere sugg estive of old infarcts. No midline shift, mass effect or hemorrhage. The brain parenchyma and CSF sp aces are otherwise normal. VISUALIZED PARANASAL SINUSES: Well aerated. MASTOIDS: Well aerated. BONES: The bones appear intact. SOFT TISSUES: Visualized nasopharynx is normal. Superficial soft tissues are normal. IMPRESSION: No acute intracranial findings. Reviewed, dictated and finalized at location A.
--- NOTE | ~2025-03-27 | XR_ITS ---
XR elbow RT min 3V Ordering provider: Vianney Cook PA-C History: . fall . Comparison: None. FINDINGS: BONES: . Lucency is projected over the lateral aspect of the radial head which may be a fracture. Cli nical correlation and evaluation for tenderness in the area advised. JOINT SPACES: Normal. SOFT TISSUES: Unremarkable. No definite joint effusion. IMPRESSION: Possible fracture in the radial head laterally. Clinical correlation and follow-up advised. Reviewed, dictated and finalized at location A. IMPRESSION: Possible fracture in the radial head laterally. Clinical correlation and follow -up advised.
--- NOTE | ~2025-03-27 | US_ITS ---
RIGHT LOWER EXTREMITY VENOUS ULTRASOUND Ordering provider: Vianney Cook PA-C History: . RLE edema . Comparison: None. FINDINGS: --COMMON FEMORAL: Patent and free of thrombus. Normal compressibility, phasic flow and augmentation. --PROXIMAL SUPERFICIAL FEMORAL: Patent and free of thrombus. Normal compressibility, phasic flow and augmentation. --DISTAL SUPERFICIAL FEMORAL: Patent and free of thrombus. Normal compressibility, phasic flow and au gmentation. --POPLITEAL: Patent and free of thrombus. Normal compressibility, phasic flow and augmentation. --POSTERIOR TIBIAL: Patent and free of thrombus. Normal compressibility, phasic flow and augmentation . IMPRESSION: Negative right lower extremity venous US. No deep vein thrombosis. Reviewed, dictated and finalized at location A.
--- NOTE | 2025-03-27 15:59 | ECG_ITS ---
Test Date: 2025-03-27 16:04:05 Measurements Intervals [place] Rate: 77 P: 57 MS: 151 QRS: 73 QRSD: 86 T: 59 QT: 396 QTc: 448 Interpretive Statements SINUS RHYTHM WITH OCCASIONAL SUPRAVENTRICULAR PREMATURE COMPLEXES Compared to ECG 11/21/2024 23:58:19 Sinus arrhythmia no longer present Electronically Signed On 03-27-2025 16:54:06 CDT by Mary Lou Granger
[2025-03-27 16:27] LABS: Hematocrit 35.6 % (37.0-47.0); Hemoglobin 11.3 g/dL (12.0-15.0); Immature Granulocyte Percent A 0.1 % (0-0.5); Lymphocytes Absolute Auto 1.25 K/mm3 (0.9-3.2); Mean Corpuscular HGB Conc 31.7 g/dl (32-36); Mean Corpuscular Hemoglobin 29.0 pg (26-34); Mean Corpuscular Volume 91.5 fl (80-100); Nucleated Red Blood Cells Absolute Auto 0.000 K/mm3 (0.0-0.012); Nucleated Red Blood Cells Perc 0.0 % (0.0-0.2); Platelet Count Result 180 k/mm3 (150-375); Red Blood Count 3.89 M/mm3 (4.2-5.4); White Blood Count 6.8 K/mm3 (4.5-10.0)
[2025-03-27 16:36] LABS: Alanine Aminotransferase 20 U/L (6-35); Albumin Level 4.1 g/dL (3.5-5.1); Alkaline Phosphatase 67 U/L (38-126); Anion Gap 12 mmol/L (4-12); Aspartate Amino Transferase 27 U/L (14-36); Bilirubin,Total 0.3 mg/dL (0.2-1.3); Blood Urea Nitrogen 23 mg/dL (7-17); Calcium 9.4 mg/dL (8.4-10.2); Carbon Dioxide 21 mmol/L (22-30); Chloride 104 mmol/L (98-107); Estimated CRCL calculation 37 ml/min; Estimated Glomerular Filt Rate 57; Glucose 97 mg/dL (65-110); Potassium 4.2 mmol/L (3.4-5.0); Sodium 137 mmol/L (137-145); Total Protein 7.2 g/dL (6.3-8.2)
[2025-03-27 17:15] LABS: Add Urine Microscopic? YES; Appearance Urine Cloudy (Clear); Glucose Urine UA Negative (Negative); Leukocyte Esterase Ur 2+ LEU/UL (Negative); Need Manual Microscopic Reviewed; Nitrate Urine Negative (Negative); Non Pathogenic Casts 0-2; Specific Grav Ur 1.013 (1.001-1.035)
--- OUTSIDE RECORDS SUMMARY | 2025-03-27 20:33 | XMS_ITS | Encounter Summary ---
Author Organization [facility] Address [address] [place] [address] Care Team Providers Care Reservationist Name Role Phone Unavailable Primary Care Provider Unavailabl e Reason for Referral * Consultation (Urgent) - Closed Specialty Diagnoses / Procedures Referred By Contac t Referred To Contact Neurological Surgery Diagnoses Cerebral aneurysm, nonruptured (HCC) Luisa Ziegler APRN-CNP [address] [place] [address] Phone: tel: [facility] - Neurosurgery [address] [place] [address] Phone: tel: fax: Referral ID Status Reason Start Date Expiration Date V isits Requested Visits Authorized [id number] Closed Specialty Services Required 07/29/2024 07/29/2025 1 1 CAL SUPPORT SPECIALIST Encounter Details Date Type Department Care Team (Latest Contact Info) Description 07/29/2024 Transcribe Orders [facility] - Centralized Scheduling [facility] [place] [address] Luisa Ziegler APRN-CNP [address] [place] [address] Cerebral aneurysm, nonruptured Social History Tobacco Use Types Packs/Day Years Used Date Smoking Tobacco: Never Assessed Comments Unknown Sex and Gender Information Value Date Recorded Sex Assigned at Not on file Legal Sex Female 1:42 PM CDT Gender Identity Not on file Sexual Orientation Not on file documented as of this encounter Plan of Treatment Scheduled Referrals Name Type Priority Associated Diagnoses Order Schedule AMB REFERRAL TO NEUROSURGERY Outpatient Referral Routine Cerebral aneurysm, nonruptured 1 Occurrences starting 07/29/2024 until 07/29/2025 documented as of this encounter Visit Diagnoses Diagnosis Cerebral aneurysm, nonruptured (HCC)- Primary Cerebral aneurysm, nonruptured documented in this encounter
--- OUTSIDE RECORDS SUMMARY | 2025-03-27 20:33 | XMS_ITS | Encounter Summary ---
Author Organization [facility] Address [address] [facility] [place] [address] Care Team Providers Care Booster Operator Name Role Phone Unavailable Primary Care Provider Unavailabl e Encounter Details Date Type Department Care Team (Late st Contact Info) Description 07/26/2024 Lab Requisition [facility] - Pathology Lab [address] [place] [id number] David Foster MD [address] [place] [address] Localized enlarged lymph nodes Social History [...] 9:30 AM CDT) Case Report Flow Cytometry Case: [id number] Authorizing Provider: David Foster Collected: 07/26/2024 09:30 AM MD Slick Ordering Location: [facility] Physician [facility] - Received: 07/26/2024 01:43 PM Pathology Lab Pathologist: Laurie Calderón MD Specimen: Lymph Node 07/29/2024 12:59 PM STUDENT WORKER [facility] Final Diagnosis Lymph node, [...] lymph node is required. 07/29/2024 12:59 PM [facility] at [address] STUDENT WORKER Flow Cytometry Interpretation Viability: 41% B-cells: 16% of lymphocytes, polytypic, kappa:lambda ratio 2.8:1, no significant aberrant expression of CD5, CD10, or CD34 T-cells: up to 86% of lymphocytes, no diagnostic immunophenotypic aberrancy detected, CD4:CD8 ratio 2.2:1 A cytospin prepared from the flow cytometry specimen has been reviewed for quality assurance monitor body purposes. 07/29/2024 12:59 PM [facility] Flow Cytometry Results Differential Result Comment Flow Cell Count /uL 340 Total Viability % 41.0 Lymphocytes % 83 Dim CD45 Region % 2 Monocytes % 0 Granulocytes % 13 07/29/2024 12:59 PM [facility] Reason for test Localized enlarged lymph nodes 785.6 07/29/2024 12:59 PM [facility] Client Specimen ID # [id number] 07/29/2024 12:59 PM [facility] Number of markers 16 were performed. A-18 Flow CD3 A-20 Flow CD10 A-22 Flow CD20 A-23 Flow CD23 A-28 Flow CD2 A-29 Flow CD4 A-32 Flow CD1a A-19 Flow CD5 A-21 Flow CD19 A-24 Flow CD34 A-25 Flow CD45 A-30 Flow CD7 A-31 Flow CD8 A-33 Flow CD30 A-26 [place]+CD19+ A-27 Lambda+CD19+ 07/29/2024 12:59 PM [facility] Pathologist Location at [facility] 07/29/2024 12:59 PM [facility] Disclaimer Test performed at [facility], [address] [place] [address], [address]. *The established laboratory minimum viability is 70%. [...] high complexity clinical testing. 07/29/2024 12:59 PM [facility] Embedded Images 12:59 PM [facility] Pathology/Cytolo gy ENTIRE LYMPH NODE / Unknown 07/26/2024 9:30 AM CDT 07/26/2024 1:43 PM CDT David Foster MD LAB - PATHOLOGY/CYT OLOGY ORDERABLES Final Result [facility] [address] [phone] documented in this encounter Visit Diagnoses Diagnosis Localized enlarged lymph nodes Enlargement of lymph nodes documented in this encounter
--- OUTSIDE RECORDS SUMMARY | 2025-03-27 20:33 | XMS_ITS | Clinical Summary ---
Author Organization [facility] Address [address] [place] [address] Care Team Providers Care Spa Manager/Esthetician Name Role Phone Unavailable Primary Care Provider Unavailabl e Source Comments [facility],non-owned Affiliates and Associated Physician Practices is amultiple site organization consisting of ambulatory clinics and hospital sitesin [place], [place], [place] and [place]. This disclosure is being madepursuant to the Care Everywhere program and may not contain all information available regarding this patient. Last updated 18.[facility] Social History Tobacco Use Types Packs/Day Years Used Date Smoking Tobacco: Never Assessed Comments Unknown Sex and Gender Information Value Date Recorded Sex Assigned at Not on file Legal Sex Female 1:42 PM CDT Gender Identity Not on file Sexual Orientation Not on file Plan of Treatment Health Maintenance Due Date Last Done Comments BONE DENSITY TESTING 1940 MEDICARE AWV 12 MONTHS 1940 DTAP/TDAP/TD VACCINES (1 - Tdap) 12/30/1959 PNEUMOCOCCAL VACCINE 50+ (1 of 1 - PCV) 1990 ZOSTER VACCINE (1 of 2) 1990 Respiratory Syncytial Virus (RSV) Vaccine Pt: or over 60 yrs (1 - 1-dose 75+ series) 12/30/2015 COVID-19 VACCINE ( - 2023-2 5 season) 2024 DEPRESSION SCREENING 09/25/2024 INFLUENZA VACCINE (Season Ended) 2025 HEPATITIS B VACCINE Aged Out No longe r eligible based on patient's age to complete this topic HIB VACCINE Aged Out No longer eligi ble based on patient's age to complete this topic HPV VACCINE Aged Out No longer eligi ble based on patient's age to complete this topic MENINGOCOCCAL (Group B) VACC INE SHARED DECISION-MAKING Aged Out No longer eligibl e based on patient's age to complete this topic MENINGOCOCCAL GROUPS A/C/Y/W VACCINE Aged Out No longer eligible b ased on patient's age to complete this topic Insurance MEDICARE
--- OUTSIDE RECORDS SUMMARY | 2025-03-27 20:33 | XMS_ITS | Clinical Summary ---
Author Organization [facility] [address] Address [address] [place] [address] Care Team Providers Care Nitrogen Operator Name Role Phone Noam Cleveland DO Primary Care Provider [phone] Allergies No known active allergies Active Problems [...] 10/28/2013 Hypertension 10/28/2013 Anaclitic depression 10/28/2013 Immunizations Immunization Administration Dates Next Due Influenza, Trivalent, Preservative Free, Intramu scular 06/25/2014 Surgical History Surgery Date Site/Laterality Comments [place] TONSILLECTOMY PRIMARY/SEC ONDARY <AGE 12 Tonsillectomy - [...] on file Legal Sex Female 9:08 PM DECISION ANALYST Gender Identity Not on file Sexual Orientation Not on file Obstetrics History Last Filed Vital Signs Vital Sign Reading Time Taken Comments Blood Pressure 187/99 07/03/2015 9:12 AM CDT Pulse 81 07/03/2015 9:12 AM CDT Temperature - - Respiratory Rate - - Oxygen Saturation 100% 09/26/2013 11:18 AM DECISION ANALYST Inhaled Oxygen Concentration - - Weight 58.8 kg (129 lb 9.7 oz) 07/03/2015 9:12 A M CDT Height 162.6 cm (5' 4) 07/03/2015 9:12 AM CDT Body Mass Index 22.25 07/03/2015 9:12 AM CDT Plan of Treatment Not on file Insurance MDCR HMO REF Care Teams Nitrogen Operator Relationship Specialty Start Date End Date Noam Cleveland DO PCP - General Internal Medicine 10/31/18
--- OUTSIDE RECORDS SUMMARY | 2025-03-27 20:33 | XMS_ITS | Clinical Summary ---
Author Organization [facility] Nick crespo Alyssia Address [address] [place] [address] Care Team Providers Care X Ray Physician Name Role Phone Unavailable Primary Care Provider [...] Encounters Date Type Department Care Team Description 03/12/2025 External Device Data STL ABSTRACTION Provider, Abstract 03/11/2025 External Device Data STL ABSTRACTION Provider, Abstract 02/13/2025 External Device Data STL ABSTRACTION Provider, Abstract 02/12/2025 External Device Data STL ABSTRACTION Provider, Abstract 02/11/2025 External Device Data STL ABSTRACTION Provider, Abstract from Last 3 Months Family History Medical [...] on file Legal Sex Female 12:12 PM METAL SPRAYER Gender Identity Not on file Sexual Orientation Not on file Last Filed Vital Signs Vital Sign Reading Time Taken Comments Blood Pressure 157/103 09/10/2024 2:54 PM METAL SPRAYER Pulse 79 09/10/2024 2:54 PM METAL SPRAYER Temperature 36.8 C (98.2 F) 09/10/2024 2:54 PM METAL SPRAYER Respiratory Rate 16 09/10/2024 2:54 PM METAL SPRAYER Oxygen Saturation 95% 09/10/2024 2:54 PM METAL SPRAYER Inhaled Oxygen Concentration - - Weight 61.2 kg (135 lb) 09/10/2024 2:54 PM METAL SPRAYER Height 157.5 cm (5' 2) 09/10/2024 2:54 PM METAL SPRAYER Body Mass Index 24.69 09/10/2024 2:54 PM METAL SPRAYER Plan of Treatment Health Maintenance Due Date Last Done Comments DTAP/TDAP/TD VACCINES (1 - Tdap) 12/30/1959 PNEUMOCOCCAL VACCINE 50+ YEARS (1 of 1 - PCV) 12/29/18 91 ZOSTER VACCINE (1 of 2) 1990 OSTEOPOROSIS SCREENING 2005 RSV VACCINE (60+ or ) (1 - 1-dose 75+ series) 12/30/2015 INFLUENZA VACCINE (#1) 2025 06/25/2014 Insurance MEDICARE PART A AND B [facility]
--- OUTSIDE RECORDS SUMMARY | 2025-03-27 20:33 | XMS_ITS | Referral Summary ---
Author Organization [facility] [address] Address [address] [place] [address] Care Team Providers Care Electromatic Typist Name Role Phone Noam Cleveland DO Primary Care Provider [phone]- [phone] Allergies No known active allergies Active Problems [...] on file Legal Sex Female 9:08 PM MATTRESS AND FOUNDATION SEWER Gender Identity Not on file Sexual Orientation Not on file Last Filed Vital Signs Vital Sign Reading Time Taken Comments Blood Pressure 187/99 07/03/2015 9:12 AM CDT Pulse 81 07/03/2015 9:12 AM CDT Temperature - - Respiratory Rate - - Oxygen Saturation 100% 09/26/2013 11:18 AM MATTRESS AND FOUNDATION SEWER Inhaled Oxygen Concentration - - Weight 58.8 kg (129 lb 9.7 oz) 07/03/2015 9:12 A M CDT Height 162.6 cm (5' 4) 07/03/2015 9:12 AM CDT Body Mass Index 22.25 07/03/2015 9:12 AM CDT Plan of Treatment Not on file Insurance [facility] MEDICARE Address: [facility] [id number] [place] [phone] Care Teams Electromatic Typist Relationship Specialty Start Date End Date Noam Cleveland DO PCP - General Internal Medicine 10/31/18
--- OUTSIDE RECORDS SUMMARY | 2025-03-27 20:33 | XMS_ITS | Continuity of Care Document ---
Author Organization [facility] Address [address] [place] [address] [address] [place] [address] Phone Care Team Providers Care Sports Coordinator Name Role Phone Reyes OD, Francisco Javier Unavailable Unavailable Advance Directives Directive Yes / No Effective Date File Name No Information Encounters Encounter Description Practice Location Reason(s) For Visit Diagnoses Date Provider Providers Copied on Encounter formerly [facility], [address] [place], [place], [id number], [place] tel:[phone] [facility] [place] No Information [phone] Reyes OD Francisco Javier. [address] , [address], [place], [address], [place]. tel:[phone] Family History Family Member Type Diagnosis Age At Onset No Information Payers Payer name Insurance type Covered republican ID Authoriza timikhail(s) AARP [facility] CI [id number] Social History Type Description Quantity Date Captured [...]
--- OUTSIDE RECORDS SUMMARY | 2025-03-27 20:33 | XMS_ITS ---
Author Name Auto Generated, Auto Generated Organization [facility] ice Address [address] [place] [address] Phone [phone] Care Team Providers Care Wafer Cutter Name Role Phone Luis Hay Unavailable [phone] Gerri Carbajal Unavailable [phone] Pam Jarvis Unavailable Tiffany Hanna Unavailable Functional Status Mental Status Allergies and Intolerances Medications Problems Reason for Referral Past Medical History
--- NOTE | 2025-03-27 20:55 | ED.DIZZY ---
HPI - Dizziness General Chief Complaint: Syncope <Vianney Cook PA-C - Last Filed: 03/28/25 02:49> Stated Complaint: syncope <Vianney Cook PA-C - Last Filed: 03/28/25 02:49> Time Seen by Provider: 03/27/25 20:23 <Vianney Cook PA-C - Last Filed: 03/28/25 02:49> History of Present Illness HPI Narrative: 84-year-old female with history of COPD, thyroid cancer, hypertension, CVA presents to the emergency department via EMS from [facility] for reported syncopal episode. Per patient she was walking outside with her walker when she stepped off a ledge and fell to the ground. She states she did not hit her head or lose consciousness. She is reporting feeling dizzy when going from sitting to standing position. Per [facility] report and per [facility] usp nurse I spoke with on the phone, patient was ambulating with her walker and long pants, long shirt and a flannel when they believe that the patient overheated and had a syncopal episode. States she landed on her right side. It is uncertain if she hit her head. They believe she lost consciousness for approximately 90 seconds. Patient then woke up and lost consciousness again. They deny any seizure-like activity. This was witnessed by [facility]p staff. Patient denies any chest pain, shortness of breath, abdominal pain, N/V/D, vision changes, focal numbness or weakness, dysuria or hematuria, fever, cough or congestion. She reports chronic lower extremity edema, right greater than left. She is reporting pain to her right calf she describes as a muscle cramp. Her son is at bedside states that the patient has chronic dizziness and frequent falls. She ambulates with a walker and is A&O times 2-3 at baseline. Patient did obtain a small skin tear to the right elbow with bleeding controlled. Last Tdap unknown. <Vianney Cook PA-C - Last Filed: 03/28/25 02:49> Related Data Home Medications: Home Medications ?Medication ?Instructions ?Recorded ?Confirmed ?Last Taken ?Type aspirin 81 mg tablet,delayed 81 mg PO DAILY 07/21/20 03/28/25 Unknown History release (Adult Aspirin Regimen) cholecalciferol (vitamin D3) 25 25 mcg PO DAILY 09/07/20 03/28/25 Unknown History mcg (1,000 unit) tablet diphenhydramine HCl 25 mg capsule 25 mg PO .PRN PRN Sleep 02/23/23 03/28/25 Unknown History (Allergy Relief (diphenhydramine)) melatonin 5 mg tablet 5 mg PO HS 02/23/23 03/28/25 Unknown History acetaminophen 325 mg tablet 325 mg PO Q6H PRN fever or pain 02/06/24 03/28/25 Unknown History <Vianney Cook PA-C - Last Filed: 03/28/25 02:49> Allergies/Adverse Reactions: Allergies Allergy/AdvReac Type Severity Reaction Status Date / Time No Known Allergies Allergy Verified 03/28/25 02:22 <Vianney Cook PA-C - Last Filed: 03/28/25 02:49> Review of Systems Review of Systems: All systems reviewed & are unremarkable except as noted in HPI and below <Vianney Cook PA-C - Last Filed: 03/28/25 02:49> FOR[facility]LY [facility], [facility] Past Medical History Medical History: Medical History (Updated 03/28/25 @ 02:46 by JOSÉ MIGUEL Acuña) Elbow injury Dehydration COPD (chronic obstructive pulmonary disease) 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 Dementia Dizziness HTN (hypertension) CVA (cerebral vascular accident) Vitamin D deficiency Osteoporosis Insomnia Age-related osteoporosis without current pathological fracture Chronotropic incompetence Dementia in other diseases classified elsewhere without behavioral disturbance Depression 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 Fatigue Frequent headaches Paresthesia of finger Essential hypertension Headache <Vianney Cook PA-C - Last Filed: 03/28/25 02:49> Surgical History Surgical History: Surgical History History of neck surgery <Vianney Cook PA-C - Last Filed: 03/28/25 02:49> Family History Family History: Family History Father Family history of lung cancer Hypertension Mother Hypertension Depression <Vianney Cook PA-C - Last Filed: 03/28/25 02:49> Social History Social History: Social History Smoking packs per day: 0.5 Smoking cigarettes per day: 10.0 Years smoked: 10 Smoking pack-years: 5.00 Smoking status: Former smoker Tobacco type: cigarettes Smoking end date: 09/25/10 Alcohol intake: never Substance use: never Do You Feel Safe in your Home?: Yes Lack of Transportation: No Lack of Food: Never True Current Housing: I Have Housing Concerned About Future Housing: No Difficulty Paying Gas/Electric Bills: No Difficulty Paying for Meds: No Currently Unemployed: No Education: High School Diploma/GED Difficulty w/ Childcare or Family Care: No Living arrangements: assisted living Additional living arrangements comments: [facility] Occupation/Education: 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 HEAD: Normocephalic, atraumatic. EYES: PERRLA, EOMI. ENT: Nares clear, no rhinorrhea or epistaxis. Mucous membranes dry NECK: Supple. No midline cervical spinous tenderness crepitus step-offs or deformities BACK: No midline thoracolumbar spinous tenderness, crepitus, step-offs or deformities CHEST: Clear to auscultation. No respiratory distress. No tenderness to chest wall HEART: Regular rate and rhythm. No murmur heard. Normal peripheral pulses. ABDOMEN: Soft, nontender, nondistended, normal active bowel sounds. EXTREMITIES: Normal range of motion. Trace edema bilateral lower extremities, R>L. Minimal erythema to right distal tib-fib SKIN: superficial skin tear over the right elbow with no deep structures or foreign bodies visualized. Full range of motion of elbow with no significant tenderness. Radial pulse 2 +. Sensation intact throughout. Radial, median and ulnar nerves are intact NEURO: No focal deficits. Alert and oriented x3. Moving all extremities spontaneously <Vianney J. Cook, PA-C - Last Filed: 03/28/25 02:49> Course ADVERTISING COPYWRITER/PA Physician Supervision This visit was performed by both a physician and an APC. I performed all aspects of the MDM as documented. <Jerome Mauricio MD - Last Filed: 03/28/25 05:48> Vital Signs Vital signs: Vital Signs Temperature 36.7 C 03/27/25 15:52 Pulse Rate 80 03/27/25 15:52 Respiratory Rate 23 H 03/27/25 15:52 Blood Pressure 93/82 L 03/27/25 15:52 Pulse Oximetry 96 03/27/25 15:52 Oxygen Delivery Room Air 03/27/25 15:52 Temperature 36.4 C 03/28/25 02:31 Pulse Rate 81 03/28/25 02:46 Respiratory Rate 26 H 03/28/25 02:46 Blood Pressure 173/91 H 03/28/25 02:31 Pulse Oximetry 97 03/28/25 02:46 Oxygen Delivery Room Air 03/28/25 02:46 <Vianney Cook PA-C - Last Filed: 03/28/25 02:49> Vital Signs Temperature 36.7 C 03/27/25 15:52 Pulse Rate 80 03/27/25 15:52 Respiratory Rate 23 H 03/27/25 15:52 Blood Pressure 93/82 L 03/27/25 15:52 Pulse Oximetry 96 03/27/25 15:52 Oxygen Delivery Room Air 03/27/25 15:52 Temperature 36.4 C 03/28/25 02:31 Pulse Rate 81 03/28/25 02:46 Respiratory Rate 26 H 03/28/25 02:46 Blood Pressure 173/91 H 03/28/25 02:31 Pulse Oximetry 97 03/28/25 02:46 Oxygen Delivery Room Air 03/28/25 02:46 <Jerome Mauricio MD - Last Filed: 03/28/25 05:48> MDM - Dizziness MDM Narrative Medical decision making narrative: 84-year-old female presents to the emergency department for a possible syncopal episode that occurred while the patient was ambulating outside. Reportedly she was wearing a long sleeve shirt, flannel and long pants. jail staff is worried that the patient overheated. Uncertain if the patient hit her head. She is not on anticoagulants. See HPI for further history. Triage vitals are remarkable for soft blood pressure 93/82. Patient does appear dry on exam, a L fluids has been provided. CBC without leukocytosis, chronic anemia with hemoglobin of 11.3 which is similar to prior. Chemistries with mildly elevated BUN of 23. CK mildly elevated to 214, not consistent with rhabdomyolysis. BNP mildly elevated to 236 which is normal when age adjusted. UA indicative of UTI with 21-50 white blood cells and 2+ leuk esterase. Urine culture pending. EKG shows sinus rhythm with occasional supraventricular premature complexes, normal PA interval, normal QRS duration, normal QTC, no ischemic changes. Troponin is undetectable. CT brain shows no acute intracranial findings. CT cervical spine shows no acute osseous findings with the cervical spine. Chest x-ray shows no acute cardiopulmonary findings. Right lower extremity venous duplex shows no DVT. Per the patient's son at bedside, patient's her lower extremity has been edematous and mildly red for several weeks. Discussed this may be secondary to cellulitis versus most likely stasis dermatitis. X-ray of the right elbow shows possible fracture of the radial head laterally with clinical correlation follow-up advised. I did offer to obtain a CT scan of the elbow for further evaluation however patient declined given she has no pain to this region. On re-evaluation I did palpate strongly over the radial head and elbow the patient has no tenderness whatsoever with full range of motion. Very low suspicion for acute fracture. She does have a very superficial abrasions/small area of skin tear with no deep structures or foreign bodies, no extension into the joint. This area was cleansed thoroughly with normal saline and closed with Steri-Strips. Tdap updated. Patient did have positive orthostatic vital signs upon arrival to the ED. After L of fluids patient was re-evaluated and unable to ambulate due to lightheadedness. Patient remained dizzy during orthostatics. Plan to admit for IV hydration. She was started on Rocephin to cover UTI, possible RLE cellulitis (although again is likely stasis dermatitis.) Discussed with hospitalist ADVERTISING COPYWRITERCherelle, who agrees to admission. <Vianney Cook PA-C - Last Filed: 03/28/25 02:49> Lab Data Result diagrams: 03/27/25 16:21 03/27/25 16:21 <Vianney Cook PA-C - Last Filed: 03/28/25 02:49> Labs: Lab Results 03/27/25 03/27/25 03/27/25 Range/Units 16:21 16:51 22:12 WBC 6.8 (4.5-10.0) K/mm3 RBC 3.89 L (4.2-5.4) M/mm3 Hgb 11.3 L (12.0-15.0) g/dL Hct 35.6 L (37.0-47.0) % MCV 91.5 (80-100) fl MCH 29.0 (26-34) pg MCHC 31.7 L (32-36) g/dl RDW 13.4 (11.5-14.5) % Plt Count 180 (150-375) k/mm3 MPV 9.3 (7.4-10.4) fl Immature Gran % (Auto) 0.1 (0-0.5) % Neut % (Auto) 71.7 (45.5-73.1) % Lymph % (Auto) 18.4 (18.3-44.2) % Rice % (Auto) 7.6 (2.6-8.5) % Eos % (Auto) 1.6 (0-4.4) % Baso % (Auto) 0.6 (0.2-1.2) % Lymph # (Auto) 1.25 (0.9-3.2) K/mm3 Rice # (Auto) 0.5 (0.1-0.6) K/mm3 Eos # (Auto) 0.1 (0-0.3) K/mm3 Baso # (Auto) 0.0 (0.0-0.1) K/mm3 Abs Immat Gran (auto) 0.01 (0.00-0.031) K/mm3 Absolute Neuts (auto) 4.9 (1.3-6.7) K/mm3 Absolute Nucleated RBC 0.000 (0.0-0.012) K/mm3 Nucleated RBC % 0.0 (0.0-0.2) % PT 13.4 (11.1-14.7) Seconds INR 1.0 APTT 29.9 (22.3-36.8) Seconds Sodium 137 (137-145) mmol/L Potassium 4.2 (3.4-5.0) mmol/L Chloride 104 (98-107) mmol/L Carbon Dioxide 21 L (22-30) mmol/L Anion Gap 12 (4-12) mmol/L BUN 23 H (7-17) mg/dL Creatinine 0.94 (0.7-1.0) mg/dL Estim Creat Clear Calc 37 ml/min Estimated GFR 57 L (59 - ) Glucose 97 (65-110) mg/dL Calcium 9.4 (8.4-10.2) mg/dL Magnesium 2.2 (1.6-2.3) mg/dL Total Bilirubin 0.3 (0.2-1.3) mg/dL AST 27 (14-36) U/L ALT 20 (6-35) U/L Alkaline Phosphatase 67 (38-126) U/L Total Creatine Kinase 214 H (30-135) U/L Troponin I < 0.012 (0.000-0.034) ng/mL NT-Pro-B Natriuret Pep 236 H (19.9-100) pg/mL Total Protein 7.2 (6.3-8.2) g/dL Albumin 4.1 (3.5-5.1) g/dL Urine Color Yellow (Yellow) Urine Appearance Cloudy H (Clear) Urine pH 6.5 (5.0-9.0) Ur Specific Beverly 1.013 (1.001-1.035) Urine Protein Negative (Negative) mg/dL Urine Glucose (UA) Negative (Negative) mg/dL Urine Ketones Negative (Negative) mg/dL Ur Blood (Man) Negative (Negative) Urine Nitrate Negative (Negative) Urine Bilirubin Negative (Negative) Urine Urobilinogen 0.2 (<2.0) mg/dL Add Ur Microanalysis Reviewed Leukocyte Esterase Rfl 2+ H (Negative) [place]/UL Urine RBC 0-2 (0-2) /hpf Urine WBC 21-50 H (0-3) /hpf Ur Squamous Epith Cells Few (Few) /hpf Urine Bacteria None seen /hpf Urine Casts 0-2 <Vianney Cook PA-C - Last Filed: 03/28/25 02:49> Lab Results 03/27/25 03/27/25 03/27/25 Range/Units 16:21 16:51 22:12 WBC 6.8 (4.5-10.0) K/mm3 RBC 3.89 L (4.2-5.4) M/mm3 Hgb 11.3 L (12.0-15.0) g/dL Hct 35.6 L (37.0-47.0) % MCV 91.5 (80-100) fl MCH 29.0 (26-34) pg MCHC 31.7 L (32-36) g/dl RDW 13.4 (11.5-14.5) % Plt Count 180 (150-375) k/mm3 MPV 9.3 (7.4-10.4) fl Immature Gran % (Auto) 0.1 (0-0.5) % Neut % (Auto) 71.7 (45.5-73.1) % Lymph % (Auto) 18.4 (18.3-44.2) % Rice % (Auto) 7.6 (2.6-8.5) % Eos % (Auto) 1.6 (0-4.4) % Baso % (Auto) 0.6 (0.2-1.2) % Lymph # (Auto) 1.25 (0.9-3.2) K/mm3 Rice # (Auto) 0.5 (0.1-0.6) K/mm3 Eos # (Auto) 0.1 (0-0.3) K/mm3 Baso # (Auto) 0.0 (0.0-0.1) K/mm3 Abs Immat Gran (auto) 0.01 (0.00-0.031) K/mm3 Absolute Neuts (auto) 4.9 (1.3-6.7) K/mm3 Absolute Nucleated RBC 0.000 (0.0-0.012) K/mm3 Nucleated RBC % 0.0 (0.0-0.2) % PT 13.4 (11.1-14.7) Seconds INR 1.0 APTT 29.9 (22.3-36.8) Seconds Sodium 137 (137-145) mmol/L Potassium 4.2 (3.4-5.0) mmol/L Chloride 104 (98-107) mmol/L Carbon Dioxide 21 L (22-30) mmol/L Anion Gap 12 (4-12) mmol/L BUN 23 H (7-17) mg/dL Creatinine 0.94 (0.7-1.0) mg/dL Estim Creat Clear Calc 37 ml/min Estimated GFR 57 L (59 - ) Glucose 97 (65-110) mg/dL Calcium 9.4 (8.4-10.2) mg/dL Magnesium 2.2 (1.6-2.3) mg/dL Total Bilirubin 0.3 (0.2-1.3) mg/dL AST 27 (14-36) U/L ALT 20 (6-35) U/L Alkaline Phosphatase 67 (38-126) U/L Total Creatine Kinase 214 H (30-135) U/L Troponin I < 0.012 (0.000-0.034) ng/mL NT-Pro-B Natriuret Pep 236 H (19.9-100) pg/mL Total Protein 7.2 (6.3-8.2) g/dL Albumin 4.1 (3.5-5.1) g/dL Urine Color Yellow (Yellow) Urine Appearance Cloudy H (Clear) Urine pH 6.5 (5.0-9.0) Ur Specific Beverly 1.013 (1.001-1.035) Urine Protein Negative (Negative) mg/dL Urine Glucose (UA) Negative (Negative) mg/dL Urine Ketones Negative (Negative) mg/dL Ur Blood (Man) Negative (Negative) Urine Nitrate Negative (Negative) Urine Bilirubin Negative (Negative) Urine Urobilinogen 0.2 (<2.0) mg/dL Add Ur Microanalysis Reviewed Leukocyte Esterase Rfl 2+ H (Negative) [place]/UL Urine RBC 0-2 (0-2) /hpf Urine WBC 21-50 H (0-3) /hpf Ur Squamous Epith Cells Few (Few) /hpf Urine Bacteria None seen /hpf Urine Casts 0-2 <Jerome Mauricio MD - Last Filed: 03/28/25 05:48> Discharge Plan Discharge Clinical Impression: Syncope, Abnormal urinalysis, Orthostatic hypotension <Vianney Cook PA-C - Last Filed: 03/28/25 02:49> Patient Disposition: Still a Patient <Vianney Cook PA-C - Last Filed: 03/28/25 02:49> Condition: Stable <Vianney Cook PA-C - Last Filed: 03/28/25 02:49>
[2025-03-27] MEDS: SODIUM CHLORIDE 0.9% IV 1,000 ML 999 ML IV CONT (22:20)
[2025-03-27] MEDS: TETANUS,DIPHTHERIA,AC PERTUSSIS ADULT (0.5 ML) BOOSTRIX IM (22:21)
[2025-03-27 22:27] LABS: Creatine Kinase 214 U/L (30-135); Magnesium 2.2 mg/dL (1.6-2.3)
[2025-03-27 22:31] LABS: INR 1.0; Prothrombin Time 13.4 Seconds (11.1-14.7)
[2025-03-27 22:32] LABS: Partial Thromboplastin Time 29.9 Seconds (22.3-36.8)
[2025-03-27 22:40] LABS: NT Pro B Type Natriuretic Pept 236 pg/mL (19.9-100); Troponin I < 0.012 ng/mL (0.000-0.034)
--- NOTE | 2025-03-27 23:14 | PC.NURSE ---
Per CT, pt refused her elbow CT because it is not bothering her. Vianney notified.
[2025-03-28] VITALS (19 sets, daily range): BP systolic 138–190; BP diastolic 63–128; PULSE 73–98; RESP 16–29; TEMP 36.1–36.8; O2SAT 90–100; BMI 23.3
[2025-03-28] MEDS: SODIUM CHLORIDE 0.9% IV 500 ML 999 ML IV CONT (00:50)
[2025-03-28] MEDS: SODIUM CHLORIDE 0.9% IV 1,000 ML 75 ML IV CONT ×2 (01:01→17:34)
--- NOTE | 2025-03-28 01:02 | PC.NURSE ---
1st set of blood cultures obtain left hand using kurin device 2nd set of blood cultures obtained left forearm using kurin device
--- NOTE | 2025-03-28 01:39 | PC.NURSE ---
This RN called and spoke to Asiya from [facility] and have update on pt admission status.
--- NOTE | 2025-03-28 02:00 | ADMGEN ---
This patient, Keshia Moy, was admitted to [address] [place] [address] Room 325-02. Patient/family oriented to hospital policies and general routines including ID bracelet, bed and alarms, visiting hours, pain management, procedures, bathroom and other care routines, personal items, smoking policy, room service/diet, and visiting hours. Information on how to activate the Rapid Response Team has been discussed. Patient/Family are encouraged to report perceived risks to care and to ask questions if they do not understand what they are told or what they should do.
--- NOTE | 2025-03-28 02:27 | P.HP_ITS ---
H&P: HPI History of Present Illness Date/Time: 03/28/25 02:27 Chief Complaint: Syncope Narrative: This is an 84 year old female pt who is a resident at [facility] w/[facility] of COPD, hypertension, dementia, thyroid cancer, CVA, chronic dizziness depression was brought to the emergency room after a witnessed syncopal episode. Pt was witnessed to be walking outside with her walker in a long flannel shirt, long p ants and clothing for cold weather when she was noted to fall to her right side. She was briefly unconscious and came too before syncopizing again. She denies any pain anywhere, specifically in the Chest/head/neck. She has a small skin tear to the right elbow. Pt is at baseline confused and does not answer all questions correctly. There is no one at the bedside at 0100 to assist with answering questions. Workup was performed in the ER with notable orthostatic Pulse that increases from 75-->98 with changing positions. BP is not orthostatic. Remainder of VS are normal. EKG shows normal sinus rhythm with occasional PVCs at a rate of 77. CBC with mild anemia with hemoglobin 11.3 otherwise unremarkable. Metabolic panel unremarkable. Lactic acid is normal at 1.1. CK is marginally elevated at 214, BNP 236, negative troponin and urinalysis showing 2+ leukocyte esterase and 21- 50 wbc's. Coags are unremarkable. Chest x-ray is negative for any acute cardiopulmonary abnormalities. CT of the head is negative for any acute intracranial abnormalities. CT C-spine negative for any fracture. Venous Doppler right lower extremity negative. XR Right elbow showing concerns for Right radial head fracture, however it does not correlate with any acute discomfort with palpation of the area and there was no edema or redness. CT was offered to the patient her son who was at the bedside at the time ER provider assess patient and due to full range of motion and no correlation all symptoms or signs of an acute fracture they declined. Patient received IV fluids, Rocephin and tetanus shot in the emergency room and is being admitted in the current setting for observation for her syncope, treatment of dehydration, orthostatic vital signs, UTI. 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 Dementia Dizziness HTN (hypertension) CVA (cerebral vascular accident) Vitamin D deficiency Osteoporosis Insomnia Age-related osteoporosis without current pathological fracture Chronotropic incompetence Dementia in other diseases classified elsewhere without behavioral disturbance Depression 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 Fatigue Frequent headaches Paresthesia of finger Essential hypertension Headache Surgical History Surgical History History of neck surgery Family History Family History Father Family history of lung cancer Hypertension Mother Hypertension Depression Social History Social History Smoking packs per day: 0.5 Smoking cigarettes per day: 10.0 Years smoked: 10 Smoking pack-years: 5.00 Smoking status: Former smoker Tobacco type: cigarettes Smoking end date: 09/25/10 Alcohol intake: current Substance use: never Do You Feel Safe in your Home?: Yes Lack of Transportation: No Lack of Food: Sometimes True Current Housing: I Have Housing Concerned About Future Housing: No Difficulty Paying Gas/Electric Bills: No Difficulty Paying for Meds: No Currently Unemployed: No Education: High School Diploma/GED Difficulty w/ Childcare or Family Care: No Living arrangements: assisted living Additional living arrangements comments: 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 Gender identity (if verbalized by the patient): Female Additional gender identity comments: Spiritual care concerns: No Meds Home Medications and Allergies Home Medications ?Medication ?Instructions ?Recorded ?Confirmed ?Type escitalopram oxalate 10 mg tablet 10 mg PO DAILY #90 tabs 01/16/20 03/28/25 Rx aspirin 81 mg tablet,delayed 81 mg PO DAILY 07/21/20 03/28/25 History release (Adult Aspirin Regimen) cholecalciferol (vitamin D3) 25 25 mcg PO DAILY 09/07/20 03/28/25 History mcg (1,000 unit) tablet alendronate 70 mg tablet (Fosamax) 70 mg PO WEEKLY #12 tabs 09/28/20 03/28/25 Rx omeprazole 20 mg capsule,delayed 20 mg PO DAILY #90 caps 09/30/20 03/28/25 Rx release diphenhydramine HCl 25 mg capsule 25 mg PO .PRN PRN Sleep 02/23/23 03/28/25 History (Allergy Relief (diphenhydramine)) melatonin 5 mg tablet 5 mg PO HS 02/23/23 03/28/25 History acetaminophen 325 mg tablet 325 mg PO Q6H PRN fever or pain 02/06/24 03/28/25 History albuterol sulfate 90 mcg/actuation 2 inh inhalation Q4H PRN shortness 09/03/24 03/28/25 Rx aerosol inhaler of breath or wheezing #8.5 grams glycopyrrolate 9 mcg-formoterol 2 puff inhalation BID use with 09/03/24 03/28/25 Rx 4.8 mcg HFA aerosol inhaler spacer #10.7 grams (Bevespi Aerosphere) rivastigmine 4.6 mg/24 hour 1 patch transdermal DAILY #30 ea 09/04/24 03/28/25 Rx transdermal patch losartan 25 mg tablet 50 mg (2 x 25 mg) PO DAILY #90 tabs 10/21/24 03/28/25 Rx triamcinolone acetonide 0.1 % 1 applic topical BID rash upper 10/22/24 03/28/25 Rx topical ointment back #30 grams amlodipine 5 mg tablet 5 mg PO DAILY #90 tabs 12/02/24 03/28/25 Rx clonidine HCl 0.1 mg tablet See Rx Instructions PO DAILY #10 02/18/25 03/28/25 Rx tabs Allergies Allergy/AdvReac Type Severity Reaction Status Date / Time No Known Allergies Allergy Verified 03/28/25 02:22 Vital Signs Vital Signs - 24 hr 03/27/25 15:52 03/27/25 16:11 03/27/25 16:11 Temperature 98.0 F Pulse Rate 80 76 76 Respiratory Rate 23 H Blood Pressure 93/82 L 116/66 Pulse Oximetry 96 Oxygen Delivery Room Air 03/27/25 16:13 03/27/25 16:14 03/27/25 18:02 Temperature Pulse Rate 83 94 84 Respiratory Rate 23 H Blood Pressure 107/69 167/68 H Pulse Oximetry 96 Oxygen Delivery 03/27/25 20:00 03/27/25 20:01 03/27/25 20:15 Temperature Pulse Rate 84 82 80 Respiratory Rate 33 H 27 H 24 H Blood Pressure 128/69 Pulse Oximetry 98 100 100 Oxygen Delivery 03/27/25 20:16 03/27/25 20:45 03/27/25 20:46 Temperature Pulse Rate 77 83 81 Respiratory Rate 21 H 17 20 Blood Pressure 144/72 H 161/124 H Pulse Oximetry 99 99 Oxygen Delivery 03/27/25 21:01 03/27/25 21:16 03/27/25 22:15 Temperature Pulse Rate 76 78 73 Respiratory Rate 39 H 31 H 24 H Blood Pressure 155/78 H 148/70 H Pulse Oximetry 100 98 98 Oxygen Delivery 03/27/25 22:30 03/27/25 22:37 03/27/25 22:45 Temperature Pulse Rate 86 78 80 Respiratory Rate 31 H 23 H 21 H Blood Pressure 148/65 H Pulse Oximetry 98 97 95 Oxygen Delivery 03/27/25 23:00 03/27/25 23:15 03/27/25 23:30 Temperature Pulse Rate 80 79 88 Respiratory Rate 17 21 H 25 H Blood Pressure Pulse Oximetry 96 96 100 Oxygen Delivery 03/27/25 23:45 03/27/25 23:58 03/28/25 00:00 Temperature Pulse Rate 86 75 76 Respiratory Rate 28 H Blood Pressure 170/81 H 190/83 H Pulse Oximetry 97 Oxygen Delivery 03/28/25 00:00 03/28/25 00:01 03/28/25 00:03 Temperature Pulse Rate 73 77 83 Respiratory Rate 29 H 21 H 26 H Blood Pressure 170/81 H 182/81 H Pulse Oximetry 100 100 90 Oxygen Delivery 03/28/25 00:05 03/28/25 01:40 Temperature Pulse Rate 98 83 Respiratory Rate 20 Blood Pressure 154/128 H Pulse Oximetry 100 Oxygen Delivery Exam Const: General: comfortable and no acute distress Other: Elderly, female patient lying supine on stretcher at this time in no acute distress. She is pleasantly confused. HENMT: Face/Nose/Sinus: Normal nares present Mouth: Yes moist mucous membranes Eyes: General: appearance normal, both eyes and all related structures Sclera: sclerae normal Pupils: Equal, round and reactive pupils present EOM: EOMs intact bilaterally Neck: Neck: supple and no JVD Lymphatic: lymphadenopathy not noted Chest: Other: Nontender to palpation Resp: Effort & Inspection: normal respiratory effort Auscultation: clear to auscultation bilaterally Cardio: Rate: regular rate Rhythm: regular rhythm Heart sounds: no gallops, no murmurs and no rubs GI: Inspection: non-distended GI Palp: Yes Soft to palpation and No Tenderness to palpation present (GI) Auscultation: normal bowel sounds Skin: General skin exam: normal color, rashes and/or lesions noted and no erythema Lesions: no lesions noted Rashes: no rashes noted Wounds: wounds noted (Right elbow skin tear with Steri-Strips in place.) Neuro: Speech: normal speech Motor exam (neuro): Normal motor muscle tone present throughout and Abnormal motor strength present (Generalized weakness) Other: Alert oriented to self only. Extrem: Other: Skin tear wound to right elbow otherwise unremarkable Psych: Other: At baseline, demented and confused H&P: Results Labs Labs: Short CBC 03/27/25 Range/Units 16:21 WBC 6.8 (4.5-10.0) K/mm3 Hgb 11.3 L (12.0-15.0) g/dL Hct 35.6 L (37.0-47.0) % Plt Count 180 (150-375) k/mm3 BMP 03/27/25 16:21 Sodium 137 Potassium 4.2 Chloride 104 Carbon Dioxide 21 L BUN 23 H Creatinine 0.94 Glucose 97 Calcium 9.4 Cardiac Enzymes 03/27/25 Range/Units 22:12 Total Creatine Kinase 214 H (30-135) U/L Troponin I < 0.012 (0.000-0.034) ng/mL Liver Function 03/27/25 Range/Units 16:21 Total Bilirubin 0.3 (0.2-1.3) mg/dL AST 27 (14-36) U/L ALT 20 (6-35) U/L Alkaline Phosphatase 67 (38-126) U/L Albumin 4.1 (3.5-5.1) g/dL Urine 03/27/25 Range/Units 16:51 Urine Color Yellow (Yellow) Urine Appearance Cloudy H (Clear) Urine pH 6.5 (5.0-9.0) Ur Specific [place] 1.013 (1.001-1.035) Urine Protein Negative (Negative) mg/dL Urine Glucose (UA) Negative (Negative) mg/dL Assessment and Plan Assessment and plan (1) Syncope: Qualifiers: Syncope type: unspecified Qualified Code(s): R55 - Syncope and collapse Code(s): R55 - Syncope and collapse Status: Acute Assessment and Plan: * Witnessed event * Etiology uncertain. * Fall precautions * CT head without any acute abnormalities. * Concern for mild dehydration given the patient was held and humid summer evening dressed for winter with mild orthostatic pulse. No orthostatic blood pressure. * Normal EKG * Telemetry * Trend and monitor labs and vital signs. (2) Dehydration: Code(s): E86.0 - Dehydration Status: Acute Assessment and Plan: * Continue IV fluid hydration normal saline at 75 mL/hour * Trended monitor labs and vital signs. (3) Elbow injury: Code(s): S59.909A - Unspecified injury of unspecified elbow, initial encounter Status: Acute Assessment and Plan: * As noted x-ray of right elbow suggest a ?possible? fracture of the right radial head and clinical correlation is recommended. There was no acute clinical correlation will findings of a fracture as patient does not have pain, swelling, and has preserved active range of motion. Patient her son who was at the bedside at the time of ER assessment or offered CT imaging and they declined. (4) History of fall: Code(s): Z91.81 - History of falling Status: Acute Assessment and Plan: * Witnessed fall this evening. * Fall precautions (5) COPD (chronic obstructive pulmonary disease): Qualifiers: COPD type: emphysema Emphysema type: panlobular Qualified Code(s): J43.1 - Panlobular emphysema Code(s): J44.9 - Chronic obstructive pulmonary disease, unspecified Status: Chronic Assessment and Plan: * Continue home medication of Bevespi or pharmacy alternative if not on formulary. * Trend vitals * P.r.n. albuterol (6) Dementia: Qualifiers: Dementia type: Alzheimer's Alzheimer's disease onset: early onset Dementia severity: moderate Dementia behavioral or psychological symptom: without behavioral, psychotic, or mood disturbance or anxiety Qualified Code(s): G30.0 - Alzheimer's disease with early onset; F02.B0 - Dementia in other diseases classified elsewhere, moderate, without behavioral disturbance, psychotic disturbance, mood disturbance, and anxiety Code(s): F03.90 - Unspecified dementia, unspecified severity, without behavioral disturbance, psychotic disturbance, mood disturbance, and anxiety Status: Chronic Assessment and Plan: * Provide for safety (7) History of essential hypertension: Code(s): Z86.79 - Personal history of other diseases of the circulatory system Status: Chronic Assessment and Plan: * Continue home medications of losartan 50 mg daily, clonidine 0.1 mg 1st systolic blood pressure over 180 and sustained diastolic blood pressure over 100, and amlodipine 5 mg daily * Monitoring trend blood pressures Quality VTE Prophylaxis VTE prophylaxis: mechanical ordered Hospitalist MIPS Advance Care Plan I have confirmed that the patient's Advanced Care Plan is present, code status is documented, or surrogate decision maker is listed in patient medical record.: Yes Medication Reconciliation I have utilized all available resources to obtain, update and review the patients current medications (includes all prescriptions, OTC, herbals, cannabis, and nutritional supplements).: Yes
[2025-03-28] MEDS: UMECLIDINIUM/VILANTEROL 62.5-25 MCG ELLIPTA 1 PUFF INHALATION (08:11)
[2025-03-28] MEDS: ESCITALOPRAM OXALATE 10 MG TABLET PO (09:04)
[2025-03-28] MEDS: PANTOPRAZOLE 40 MG TABLET PO (09:04)
[2025-03-28] MEDS: LOSARTAN POTASSIUM 25 MG TABLET 50 MG PO (09:05)
[2025-03-28] MEDS: CHOLECALCIFEROL (VITAMIN D3) 25 MCG (1,000 UNITS) TABLET PO (09:05)
[2025-03-28] MEDS: ASPIRIN 81 MG ENTERIC TABLET PO (09:05)
[2025-03-28] MEDS: RIVASTIGMINE TARTRATE 4.6 MG PATCH 1 PATCH TRANSDERM (09:12)
[2025-03-28] MEDS: TRIAMCINOLONE ACET 0.1% OINT 15 GM TUBE 1 APPLIC TOPICAL ×2 (09:13→21:06)
--- NOTE | 2025-03-28 14:29 | P.PNIM_ITS ---
Progress Note: A&P Assessment and Plan (1) Syncope: Qualifiers: Syncope type: unspecified Qualified Code(s): R55 - Syncope and collapse Code(s): R55 - Syncope and collapse Status: Acute Assessment and Plan: * Witnessed event * Etiology uncertain. * Fall precautions * CT head without any acute abnormalities. * Concern for mild dehydration given the patient was held and humid summer evening dressed for winter with mild orthostatic pulse. No orthostatic blood pressure. * Normal EKG * Telemetry * Trend and monitor labs and vital signs. -orthostatics ordered (2) Dehydration: Code(s): E86.0 - Dehydration Status: Acute Assessment and Plan: * Continue IV fluid hydration normal saline at 75 mL/hour * Trended monitor labs and vital signs. (3) Elbow injury: Code(s): S59.909A - Unspecified injury of unspecified elbow, initial encounter Status: Acute Assessment and Plan: * As noted x-ray of right elbow suggest a ?possible? fracture of the right radial head and clinical correlation is recommended. There was no acute clinical correlation will findings of a fracture as patient does not have pain, swelling, and has preserved active range of motion. Patient her son who was at the bedside at the time of ER assessment or offered CT imaging and they declined. (4) History of fall: Code(s): Z91.81 - History of falling Status: Acute Assessment and Plan: * Witnessed fall this evening. * Fall precautions * -pt/ot ordered (5) COPD (chronic obstructive pulmonary disease): Qualifiers: COPD type: emphysema Emphysema type: panlobular Qualified Code(s): J43.1 - Panlobular emphysema Code(s): J44.9 - Chronic obstructive pulmonary disease, unspecified Status: Chronic Assessment and Plan: * Continue home medication of Bevespi or pharmacy alternative if not on formula ry. * Trend vitals * P.r.n. albuterol (6) Dementia: Qualifiers: Dementia type: Alzheimer's Alzheimer's disease onset: early onset Dementia severity: moderate Dementia behavioral or psychological symptom: without behavioral, psychotic, or mood disturbance or anxiety Qualified Code(s): G30.0 - Alzheimer's disease with early onset; F02.B0 - Dementia in other diseases classified elsewhere, moderate, without behavioral disturbance, psychotic disturbance, mood disturbance, and anxiety Code(s): F03.90 - Unspecified dementia, unspecified severity, without behavioral disturbance, psychotic disturbance, mood disturbance, and anxiety Status: Chronic Assessment and Plan: * Provide for safety (7) History of essential hypertension: Code(s): Z86.79 - Personal history of other diseases of the circulatory system Status: Chronic Assessment and Plan: * Continue home medications of losartan 50 mg daily, clonidine 0.1 mg 1st systolic blood pressure over 180 and sustained diastolic blood pressure over 100, and amlodipine 5 mg daily * Monitoring trend blood pressures Time Spent With Patient Time with patient: 25 - 35 minutes Subjective Date/time seen: 03/28/25 14:29 Interval history: 84 year old female pt who is a resident at [facility] w/[facility] of COPD, hypertension, dementia, thyroid cancer, CVA, chronic dizziness depression was brought to the emergency room after a witnessed syncopal episode. She had been dizzy for years and states that extensive workup had been done with not much results. Per her granddaughter, she doensot eat much, as her appetite is diminished and she does not drink much either. She was diagnosed with stage 4 thyroid ca and pt and family decided not to do any treatment at this point as pt is too weak to tolerate chemo. She denies headache currently, rt elbow is hurting a bit but tolerable. NO n/v/d. Review of Systems Review of Systems: All systems reviewed & are unremarkable except as noted in HPI and below Exam Const: General: comfortable and no acute distress HENMT: Face/Nose/Sinus: Normal nares present Mouth: Yes moist mucous membra balbir Eyes: General: appearance normal, both eyes and all related structures Sclera: sclerae normal Pupils: Equal, round and reactive pupils present EOM: EOMs intact bilaterally Neck: Neck: supple and no JVD Lymphatic: lymphadenopathy not noted Chest: Other: Nontender to palpation Resp: Effort & Inspection: normal respiratory effort Auscultation: clear to auscultation bilaterally Cardio: Rate: regular rate Rhythm: regular rhythm Heart sounds: no gallops, no murmurs and no rubs GI: Inspection: non-distended Auscultation: normal bowel sounds Skin: General skin exam: normal color, rashes and/or lesions noted, no erythema, No lesion, No rashes and wounds noted (Right elbow skin tear with Steri-Strips in place.) Lesions: no lesions noted Rashes: no rashes noted Wounds: wounds noted (Right elbow skin tear with Steri-Strips in place.) Neuro: Cranial nerves: Yes Equal, round and reactive pupils present Speech: normal speech Motor exam (neuro): Normal motor muscle tone present throughout and Abnormal motor strength present (Generalized weakness) Other: Alert oriented to self only. Extrem: Other: Skin tear wound to right elbow otherwise unremarkable Psych: Affect: normal affect Other: she is occasionally confused. h/o dementia-her baseline Objective Data Vital Signs Vital Signs: Vital Signs - 24 hr 03/27/25 15:52 03/27/25 16:11 03/27/25 16:11 Temperature 98.0 F Pulse Rate 80 76 76 Respiratory Rate 23 H Blood Pressure 93/82 L 116/66 Pulse Oximetry 96 Oxygen Delivery Room Air 03/27/25 16:13 03/27/25 16:14 03/27/25 18:02 Temperature Pulse Rate 83 94 84 Respiratory Rate 23 H Blood Pressure 107/69 167/68 H Pulse Oximetry 96 Oxygen Delivery 03/27/25 20:00 03/27/25 20:01 03/27/25 20:15 Temperature Pulse Rate 84 82 80 Respiratory Rate 33 H 27 H 24 H Blood Pressure 128/69 Pulse Oximetry 98 100 100 Oxygen Delivery 03/27/25 20:16 03/27/25 20:45 03/27/25 20:46 Temperature Pulse Rate 77 83 81 Respiratory Rate 21 H 17 20 Blood Pressure 144/72 H 161/124 H Pulse Oximetry 99 99 Oxygen Delivery 03/27/25 21:01 03/27/25 21:16 03/27/25 22:15 Temperature Pulse Rate 76 78 73 Respiratory Rate 39 H 31 H 24 H Blood Pressure 155/78 H 148/70 H Pulse Oximetry 100 98 98 Oxygen Delivery 03/27/25 22:30 03/27/25 22:37 03/27/25 22:45 Temperature Pulse Rate 86 78 80 Respiratory Rate 31 H 23 H 21 H Blood Pressure 148/65 H Pulse Oximetry 98 97 95 Oxygen Delivery 03/27/25 23:00 03/27/25 23:15 03/27/25 23:30 Temperature Pulse Rate 80 79 88 Respiratory Rate 17 21 H 25 H Blood Pressure Pulse Oximetry 96 96 100 Oxygen Delivery 03/27/25 23:45 03/27/25 23:58 03/28/25 00:00 Temperature Pulse Rate 86 75 76 Respiratory Rate 28 H Blood Pressure 170/81 H 190/83 H Pulse Oximetry 97 Oxygen Delivery 03/28/25 00:00 03/28/25 00:01 03/28/25 00:03 Temperature Pulse Rate 73 77 83 Respiratory Rate 29 H 21 H 26 H Blood Pressure 170/81 H 182/81 H Pulse Oximetry 100 100 90 Oxygen Delivery 03/28/25 00:05 03/28/25 01:40 03/28/25 02:31 Temperature 97.6 F Pulse Rate 98 83 81 Respiratory Rate 20 26 H Blood Pressure 154/128 H 173/91 H Pulse Oximetry 100 97 Oxygen Delivery 03/28/25 02:46 03/28/25 04:00 03/28/25 06:00 Temperature 97.0 F L Pulse Rate 81 75 77 Respiratory Rate 26 H 28 H Blood Pressure 177/82 H Pulse Oximetry 97 98 Oxygen Delivery Room Air 03/28/25 08:00 03/28/25 08:12 03/28/25 08:30 Temperature Pulse Rate 89 Respiratory Rate Blood Pressure Pulse Oximetry 97 Oxygen Delivery Room Air Room Air 03/28/25 12:00 Temperature Pulse Rate 81 Respiratory Rate Blood Pressure Pulse Oximetry Oxygen Delivery Intake/Output Intake/Output: Intake & Output 03/25/25 03/26/25 03/27/25 03/28/25 23:59 23:59 23:59 23:59 Intake Total 1000 650 Output Total 75 1100 Balance 925 -450 Meds/Results Medications: Active Medications Generic Name Dose Route Start Last Admin Trade Name Freq PRN Reason Stop Dose Admin Acetaminophen 325 mg 03/28/25 02:44 Acetaminophen 325 Mg Tablet PO Q6H PRN fever or pain Albuterol 2 puff 03/28/25 02:44 Albuterol Sulfate (*Sp) Aerosol 1 Puff INHALATION Q4HRT PRN shortness of breath or wheezing Alendronate Sodium 70 mg 04/02/25 09:00 Alendronate Sodium 70 Mg Tablet PO WEEKLY [facility] Amlodipine Besylate 5 mg 03/28/25 09:00 03/28/25 09:05 Amlodipine Besylate 5 Mg Tablet PO 5 mg DAILY ANAT Administration Aspirin 81 mg 03/28/25 09:00 03/28/25 09:05 Aspirin 81 Mg Enteric Tablet PO 81 mg DAILY ANAT Administration Clonidine HCl 0.1 mg 03/28/25 09:00 Clonidine Hcl 0.1 Mg Tablet PO DAILY PRN sustained high blood pressure Diphenhydramine HCl 25 mg 03/28/25 02:44 Diphenhydramine Hcl Cap 25 Mg Capsule PO QHS PRN Insomnia Escitalopram Oxalate 10 mg 03/28/25 09:00 03/28/25 09:04 Escitalopram Oxalate 10 Mg Tablet PO 10 mg DAILY ANAT Administration Ceftriaxone Sodium 1 gm in 50 mls @ 100 mls/hr 03/28/25 21:00 Rocephin 1 Gm/Ns 50 Ml IVPB Q24H ANAT Sodium Chloride 1,000 mls @ 75 mls/hr 03/28/25 00:20 03/28/25 01:01 Normal Saline Iv IV CONT 75 mls/hr .[id number] ANAT Administration Losartan Potassium 50 mg 03/28/25 09:00 03/28/25 09:05 Losartan Potassium 25 Mg Tablet PO 50 mg DAILY ANAT Administration Melatonin 5 mg 03/28/25 21:00 Melatonin 5 Mg Tablet PO HS ANAT Pantoprazole Sodium 40 mg 03/28/25 09:00 03/28/25 09:04 Pantoprazole 40 Mg Tablet PO 40 mg QAM ANAT Administration Rivastigmine 1 patch 03/28/25 09:00 03/28/25 09:12 Rivastigmine Tartrate 4.6 Mg Patch TRANSDERM 1 patch DAILY ANAT Administration Triamcinolone Acetonide 1 applic 03/28/25 09:00 03/28/25 09:13 Triamcinolone Acet 0.1% Oint 15 Gm Tube TOPICAL 1 applic Q12HR ANAT Administration Umeclidinium/Vilanterol 1 puff 03/28/25 08:00 03/28/25 08:11 Umeclidinium/Vilanterol 62.5-25 Mcg Ellipta INHALATION 1 puff DAILYRT ANAT Administration Vitamin D 25 mcg 03/28/25 09:00 03/28/25 09:05 Cholecalciferol (Vitamin D3) 25 Mcg (1,000 Units) Tablet PO 25 mcg DAILY ANAT Administration Radiology Results: ITS Impressions Chest X-Ray 03/27/25 16:38 IMPRESSION: No acute cardiopulmonary pathology. Venous Doppler Study 03/27/25 21:23 IMPRESSION: Negative right lower extremity venous US. No deep vein thrombosis. Elbow X-Ray 03/27/25 22:10 IMPRESSION: Possible fracture in the radial head laterally. Clinical correlation and follow- up advised. Head CT 03/27/25 22:14 IMPRESSION: No acute intracranial findings. Cervical Spine CT 03/27/25 22:21 IMPRESSION: No acute osseous abnormality cervical spine. Postoperative changes in the spine. Pleural-based nodule on the left upper lobe unchanged from previous examination Labs Labs: Laboratory Results - last 24 hr 03/27/25 03/27/25 03/27/25 16:21 16:51 22:12 WBC 6.8 RBC 3.89 L Hgb 11.3 L Hct 35.6 L MCV 91.5 MCH 29.0 MCHC 31.7 L RDW 13.4 Plt Count 180 MPV 9.3 Immature Gran % (Auto) 0.1 Neut % (Auto) 71.7 Lymph % (Auto) 18.4 Carbon % (Auto) 7.6 Eos % (Auto) 1.6 Baso % (Auto) 0.6 Lymph # (Auto) 1.25 Carbon # (Auto) 0.5 Eos # (Auto) 0.1 Baso # (Auto) 0.0 Abs Immat Gran (auto) 0.01 Absolute Neuts (auto) 4.9 Absolute Nucleated RBC 0.000 Nucleated RBC % 0.0 PT 13.4 INR 1.0 APTT 29.9 Sodium 137 Potassium 4.2 Chloride 104 Carbon Dioxide 21 L Anion Gap 12 BUN 23 H Creatinine 0.94 Estim Creat Clear Calc 37 Estimated GFR 57 L Glucose 97 Lactic Acid Calcium 9.4 Magnesium 2.2 Total Bilirubin 0.3 AST 27 ALT 20 Alkaline Phosphatase 67 Total Creatine Kinase 214 H Troponin I < 0.012 NT-Pro-B Natriuret Pep 236 H Total Protein 7.2 Albumin 4.1 Urine Color Yellow Urine Appearance Cloudy H Urine pH 6.5 Ur Specific Sherman 1.013 Urine Protein Negative Urine Glucose (UA) Negative Urine Ketones Negative Ur Blood (Man) Negative Urine Nitrate Negative Urine Bilirubin Negative Urine Urobilinogen 0.2 Add Ur Microanalysis Reviewed Leukocyte Esterase Rfl 2+ H Urine RBC 0-2 Urine WBC 21-50 H Ur Squamous Epith Cells Few Urine Bacteria None seen Urine Casts 0-2 03/28/25 00:59 WBC RBC Hgb Hct MCV MCH MCHC RDW Plt Count MPV Immature Gran % (Auto) Neut % (Auto) Lymph % (Auto) Carbon % (Auto) Eos % (Auto) Baso % (Auto) Lymph # (Auto) Carbon # (Auto) Eos # (Auto) Baso # (Auto) Abs Immat Gran (auto) Absolute Neuts (auto) Absolute Nucleated RBC Nucleated RBC % PT INR APTT Sodium Potassium Chloride Carbon Dioxide Anion Gap BUN Creatinine Estim Creat Clear Calc Estimated GFR Glucose Lactic Acid 1.1 Calcium Magnesium Total Bilirubin AST ALT Alkaline Phosphatase Total Creatine Kinase Troponin I NT-Pro-B Natriuret Pep Total Protein Albumin Urine Color Urine Appearance Urine pH Ur Specific Sherman Urine Protein Urine Glucose (UA) Urine Ketones Ur Blood (Man) Urine Nitrate Urine Bilirubin Urine Urobilinogen Add Ur Microanalysis Leukocyte Esterase Rfl Urine RBC Urine WBC Ur Squamous Epith Cells Urine Bacteria Urine Casts Quality VTE Prophylaxis VTE prophylaxis: mechanical ordered
[2025-03-28] MEDS: MELATONIN 5 MG TABLET PO (21:06)
[2025-03-29] VITALS (9 sets, daily range): BP systolic 109–129; BP diastolic 52–60; PULSE 63–79; RESP 18–28; TEMP 36.3–36.8; O2SAT 94–99
[2025-03-29 06:45] LABS: Alanine Aminotransferase 15 U/L (6-35); Albumin Level 3.7 g/dL (3.5-5.1); Alkaline Phosphatase 72 U/L (38-126); Anion Gap 8 mmol/L (4-12); Aspartate Amino Transferase 27 U/L (14-36); Bilirubin,Total 0.4 mg/dL (0.2-1.3); Blood Urea Nitrogen 19 mg/dL (7-17); Calcium 8.8 mg/dL (8.4-10.2); Carbon Dioxide 22 mmol/L (22-30); Chloride 105 mmol/L (98-107); Creatine Kinase 209 U/L (30-135); Estimated CRCL calculation 42 ml/min; Estimated Glomerular Filt Rate > 60; Glucose 103 mg/dL (65-110); Magnesium 2.1 mg/dL (1.6-2.3); Potassium 3.7 mmol/L (3.4-5.0); Sodium 135 mmol/L (137-145); Total Protein 6.8 g/dL (6.3-8.2)
[2025-03-29 06:48] LABS: Hematocrit 35.7 % (37.0-47.0); Hemoglobin 11.1 g/dL (12.0-15.0); Immature Granulocyte Percent A 0.4 % (0-0.5); Lymphocytes Absolute Auto 1.48 K/mm3 (0.9-3.2); Mean Corpuscular HGB Conc 31.1 g/dl (32-36); Mean Corpuscular Hemoglobin 28.7 pg (26-34); Mean Corpuscular Volume 92.2 fl (80-100); Nucleated Red Blood Cells Absolute Auto 0.000 K/mm3 (0.0-0.012); Nucleated Red Blood Cells Perc 0.0 % (0.0-0.2); Platelet Count Result 172 k/mm3 (150-375); Red Blood Count 3.87 M/mm3 (4.2-5.4); White Blood Count 5.1 K/mm3 (4.5-10.0)
[2025-03-29] MEDS: UMECLIDINIUM/VILANTEROL 62.5-25 MCG ELLIPTA 1 PUFF INHALATION (07:38)
[2025-03-29] MEDS: RIVASTIGMINE TARTRATE 4.6 MG PATCH 1 PATCH TRANSDERM (08:20)
[2025-03-29] MEDS: CHOLECALCIFEROL (VITAMIN D3) 25 MCG (1,000 UNITS) TABLET PO (08:20)
[2025-03-29] MEDS: LOSARTAN POTASSIUM 25 MG TABLET 50 MG PO (08:20)
[2025-03-29] MEDS: ESCITALOPRAM OXALATE 10 MG TABLET PO (08:20)
[2025-03-29] MEDS: PANTOPRAZOLE 40 MG TABLET PO (08:20)
[2025-03-29] MEDS: ASPIRIN 81 MG ENTERIC TABLET PO (08:20)
[2025-03-29] MEDS: TRIAMCINOLONE ACET 0.1% OINT 15 GM TUBE 1 APPLIC TOPICAL ×2 (08:27→22:12)
--- NOTE | 2025-03-29 13:01 | P.PNIM_ITS ---
Progress Note: A&P Assessment and Plan (1) Syncope: Qualifiers: Syncope type: unspecified Qualified Code(s): R55 - Syncope and collapse Code(s): R55 - Syncope and collapse Status: Acute Assessment and Plan: * Witnessed event * Etiology uncertain. * Fall precautions * CT head without any acute abnormalities. * Concern for mild dehydration given the patient was held and humid summer evening dressed for winter with mild orthostatic pulse. No orthostatic blood pressure. * Normal EKG * Telemetry * Trend and monitor labs and vital signs. 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 (3) Elbow injury: Code(s): S59.909A - Unspecified injury of unspecified elbow, initial encounter Status: Acute Assessment and Plan: * As noted x-ray of right elbow suggest a ?possible? fracture of the right radial head and clinical correlation is recommended. There was no acute clinical correlation will findings of a fracture as patient does not have pain, swelling, and has preserved active range of motion. Patient her son who was at the bedside at the time of ER assessment or offered CT imaging and they declined. (4) History of fall: Code(s): Z91.81 - History of falling Status: Acute Assessment and Plan: * Witnessed fall this evening. * Fall precautions * -pt/ot ordered * * awaiting PT/OT eval (5) COPD (chronic obstructive pulmonary disease): Qualifiers: COPD type: emphysema Emphysema type: panlobular Qualified Code(s): J43.1 - Panlobular emphysema Code(s): J44.9 - Chronic obstructive pulmonary disease, unspecified Status: Chronic Assessment and Plan: * Continue home medication of Bevespi or pharmacy alternative if not on formulary. * Trend vitals * P.r.n. albuterol (6) Dementia: Qualifiers: Dementia type: Alzheimer's Alzheimer's disease onset: early onset Dementia severity: moderate Dementia behavioral or psychological symptom: without behavioral, psychotic, or mood disturbance or anxiety Qualified Code(s): G30.0 - Alzheimer's disease with early onset; F02.B0 - Dementia in other diseases classified elsewhere, moderate, without behavioral disturbance, psychotic disturbance, mood disturbance, and anxiety Code(s): F03.90 - Unspecified dementia, unspecified severity, without behavioral disturbance, psychotic disturbance, mood disturbance, and anxiety Status: Chronic Assessment and Plan: * Provide for safety (7) History of essential hypertension: Code(s): Z86.79 - Personal history of other diseases of the circulatory system Status: Chronic Assessment and Plan: * Continue home medications of losartan 50 mg daily, clonidine 0.1 mg 1st systolic blood pressure over 180 and sustained diastolic blood pressure over 100, and amlodipine 5 mg daily * Monitoring trend blood pressures Time Spent With Patient Time with patient: 25 - 35 minutes Subjective Date/time seen: 03/29/25 13:01 Interval history: 84 year old female pt who is a resident at [facility] w/[facility] of COPD, hypertension, dementia, thyroid cancer, CVA, chronic dizziness depression was brought to the emergency room after a witnessed syncopal episode. She had been dizzy for years and states that extensive workup had been done with not much results. Per her granddaughter, she doensot eat much, as her appetite is diminished and she does not drink much either. She was diagnosed with stage 4 thyroid ca and pt and family decided not to do any treatment at this point as pt is too weak to tolerate chemo. She denies headache currently, rt elbow is hurting a bit but tolerable. NO n/v/d. 03/29- pt is seen and examined. She denies any pain. Still dizzy, worse with position change and if pt gets anxious, which she had been. Review of Systems Review of Systems: All systems reviewed & are unremarkable except as noted in HPI and below ROS unobtainable: Yes unobtainable due to mental status (Dementia) Exam Const: General: comfortable and no acute distress Other: She is pleasantly confused that is her baseline HENMT: Face/Nose/Sinus: Normal nares present Mouth: Yes moist mucous membranes Eyes: General: appearance normal, both eyes and all related structures Scl era: sclerae normal Pupils: Equal, round and reactive pupils present EOM: EOMs intact bilaterally Neck: Neck: supple and no JVD Lymphatic: lymphadenopathy not noted Chest: Other: Nontender to palpation Resp: Effort & Inspection: normal respiratory effort Auscultation: clear to auscultation bilaterally Cardio: Rate: regular rate Rhythm: regular rhythm Heart sounds: no gallops, no murmurs and no rubs GI: Inspection: non-distended Auscultation: normal bowel sounds Skin: General skin exam: normal color, rashes and/or lesions noted, no erythema, No lesion, No rashes and wounds noted (Right elbow skin tear with Steri-Strips in place.) Lesions: no lesions noted Rashes: no rashes noted Wounds: wounds noted (Right elbow skin tear with Steri-Strips in place.) Neuro: Cranial nerves: Yes Equal, round and reactive pupils present Speech: normal speech Motor exam (neuro): Normal motor muscle tone present throughout and Abnormal motor strength present (Generalized weakness) Other: Alert oriented to self only. Extrem: Other: Skin tear wound to right elbow otherwise unremarkable Psych: Affect: normal affect Other: she is occasionally confused. h/o dementia-her baseline Objective Data Vital Signs Vital Signs: Vital Signs - 24 hr 03/28/25 14:00 03/28/25 16:00 03/28/25 20:00 Temperature 98.2 F Pulse Rate 78 78 78 Respiratory Rate 16 16 Blood Pressure 138/63 Pulse Oximetry 95 95 Oxygen Delivery Room Air Fraction of Inspired Oxygen 03/28/25 20:00 03/28/25 22:00 03/28/25 22:42 Temperature 97.2 F L Pulse Rate 73 76 Respiratory Rate 18 Blood Pressure 154/72 H Pulse Oximetry 96 95 Oxygen Delivery Room Air Fraction of Inspired Oxygen 21 03/28/25 22:55 03/28/25 22:56 03/29/25 00:00 Temperature Pulse Rate 69 Respiratory Rate Blood Pressure 166/101 H 155/93 H Pulse Oximetry Oxygen Delivery Fraction of Inspired Oxygen 03/29/25 04:00 03/29/25 06:00 03/29/25 08:00 Temperature 97.4 F L Pulse Rate 69 79 Respiratory Rate 18 Blood Pressure 128/52 L Pulse Oximetry 99 Oxygen Delivery Room Air Fraction of Inspired Oxygen Intake/Output Intake/Output: Intake & Output 03/26/25 03/27/25 03/28/25/05/25 23:59 23:59 23:59 23:59 Intake Total 1000 4000 0 Output Total 75 1900 Balance 925 2100 0 Meds/Results Medications: Active Medications Generic Name Dose Route Start Last Admin Trade Name Freq PRN Reason Stop Dose Admin Acetaminophen 325 mg 03/28/25 02:44 Acetaminophen 325 Mg Tablet PO Q6H PRN fever or pain Albuterol 2 puff 03/28/25 02:44 Albuterol Sulfate (*Sp) Aerosol 1 Puff INHALATION Q4HRT PRN shortness of breath or wheezing Alendronate Sodium 70 mg 04/02/25 09:00 Alendronate Sodium 70 Mg Tablet PO WEEKLY ANAT Amlodipine Besylate 10 mg 03/29/25 09:00 03/29/25 08:20 Amlodipine Besylate 10 Mg Tablet PO 10 mg DAILY ANAT Administration Aspirin 81 mg 03/28/25 09:00 03/29/25 08:20 Aspirin 81 Mg Enteric Tablet PO 81 mg DAILY ANAT Administration Clonidine HCl 0.1 mg 03/28/25 09:00 Clonidine Hcl 0.1 Mg Tablet PO DAILY PRN sustained high blood pressure Diphenhydramine HCl 25 mg 03/28/25 02:44 Diphenhydramine Hcl Cap 25 Mg Capsule PO QHS PRN Insomnia Escitalopram Oxalate 10 mg 03/28/25 09:00 03/29/25 08:20 Escitalopram Oxalate 10 Mg Tablet PO 10 mg DAILY ANAT Administration Hydroxyzine HCl 25 mg 03/29/25 12:58 Hydroxyzine Hcl 25 Mg Tablet PO Q6H PRN Anxiety Ceftriaxone Sodium 1 gm in 50 mls @ 100 mls/hr 03/28/25 21:00 03/28/25 21:36 Rocephin 1 Gm/Ns 50 Ml IVPB Infused Q24H ANAT Infusion Losartan Potassium 50 mg 03/28/25 09:00 03/29/25 08:20 Losartan Potassium 25 Mg Tablet PO 50 mg DAILY ANAT Administration Melatonin 5 mg 03/28/25 21:00 03/28/25 21:06 Melatonin 5 Mg Tablet PO 5 mg HS ANAT Administration Pantoprazole Sodium 40 mg 03/28/25 09:00 03/29/25 08:20 Pantoprazole 40 Mg Tablet PO 40 mg QAM ANAT Administration Rivastigmine 1 patch 03/28/25 09:00 03/29/25 08:20 Rivastigmine Tartrate 4.6 Mg Patch TRANSDERM 1 patch DAILY ANAT Administration Triamcinolone Acetonide 1 applic 03/28/25 09:00 03/29/25 08:27 Triamcinolone Acet 0.1% Oint 15 Gm Tube TOPICAL 1 applic Q12HR ANAT Administration Umeclidinium/Vilanterol 1 puff 03/28/25 08:00 03/29/25 07:38 Umeclidinium/Vilanterol 62.5-25 Mcg Ellipta INHALATION 1 puff DAILYRT ANAT Administration Vitamin D 25 mcg 03/28/25 09:00 03/29/25 08:20 Cholecalciferol (Vitamin D3) 25 Mcg (1,000 Units) Tablet PO 25 mcg DAILY ANAT Administration Radiology Results: ITS Impressions Chest X-Ray 03/27/25 16:38 IMPRESSION: No acute cardiopulmonary pathology. Venous Doppler Study 03/27/25 21:23 IMPRESSION: Negative right lower extremity venous US. No deep vein thrombosis. Elbow X-Ray 03/27/25 22:10 IMPRESSION: Possible fracture in the radial head laterally. Clinical correlation and follow- up advised. Head CT 03/27/25 22:14 IMPRESSION: No acute intracranial findings. Cervical Spine CT 03/27/25 22:21 IMPRESSION: No acute osseous abnormality cervical spine. Postoperative changes in the spine. Pleural-based nodule on the left upper lobe unchanged from previous examination Labs Labs: Laboratory Results - last 24 hr 03/29/25 06:10 WBC 5.1 RBC 3.87 L Hgb 11.1 L Hct 35.7 L MCV 92.2 MCH 28.7 MCHC 31.1 L RDW 13.5 Plt Count 172 MPV 9.6 Immature Gran % (Auto) 0.4 Neut % (Auto) 53.4 Lymph % (Auto) 29.1 Gray % (Auto) 12.2 H Eos % (Auto) 3.7 Baso % (Auto) 1.2 Lymph # (Auto) 1.48 Gray # (Auto) 0.6 Eos # (Auto) 0.2 Baso # (Auto) 0.1 Abs Immat Gran (auto) 0.02 Absolute Neuts (auto) 2.7 Absolute Nucleated RBC 0.000 Nucleated RBC % 0.0 Sodium 135 L Potassium 3.7 Chloride 105 Carbon Dioxide 22 Anion Gap 8 BUN 19 H Creatinine 0.81 Estim Creat Clear Calc 42 Estimated GFR > 60 Glucose 103 Calcium 8.8 Magnesium 2.1 Total Bilirubin 0.4 AST 27 ALT 15 Alkaline Phosphatase 72 Total Creatine Kinase 209 H Total Protein 6.8 Albumin 3.7 Quality VTE Prophylaxis VTE prophylaxis: mechanical ordered
[2025-03-29] MEDS: diphenhydrAMINE HCl CAP 25 MG CAPSULE PO (22:13)
[2025-03-29] MEDS: MELATONIN 5 MG TABLET PO (22:13)
[2025-03-30] VITALS (11 sets, daily range): BP systolic 81–130; BP diastolic 53–72; PULSE 63–79; RESP 20–24; TEMP 36.2–36.7; O2SAT 93–98
[2025-03-30] MEDS: UMECLIDINIUM/VILANTEROL 62.5-25 MCG ELLIPTA 1 PUFF INHALATION (08:19)
[2025-03-30] MEDS: PANTOPRAZOLE 40 MG TABLET PO (08:27)
[2025-03-30] MEDS: ASPIRIN 81 MG ENTERIC TABLET PO (08:27)
[2025-03-30] MEDS: ESCITALOPRAM OXALATE 10 MG TABLET PO (08:27)
[2025-03-30] MEDS: CHOLECALCIFEROL (VITAMIN D3) 25 MCG (1,000 UNITS) TABLET PO (08:27)
[2025-03-30] MEDS: LOSARTAN POTASSIUM 25 MG TABLET 50 MG PO (08:36)
[2025-03-30] MEDS: RIVASTIGMINE TARTRATE 4.6 MG PATCH 1 PATCH TRANSDERM (08:43)
[2025-03-30] MEDS: TRIAMCINOLONE ACET 0.1% OINT 15 GM TUBE 1 APPLIC TOPICAL ×2 (08:44→20:44)
--- NOTE | 2025-03-30 11:41 | PM.IMPN ---
Progress Note: A&P Assessment and Plan (1) Syncope: Qualifiers: Syncope type: unspecified Qualified Code(s): R55 - Syncope and collapse Code(s): R55 - Syncope and collapse Status: Acute Assessment and Plan: Witnessed event Etiology uncertain. Fall precautions CT head without any acute abnormalities. Concern for mild dehydration given the patient was held and humid summer evening dressed for winter with mild orthostatic pulse. No orthostatic blood pressure. Normal EKG Telemetry Trend and monitor labs and vital signs. -orthostatics ordered some drop in BP, pulse unchanged will stop IV fluids as pt is drinking and eating ok very likely cause for dizziness if thyroid ca for which pt is going to have discussion of care with her regional economic liaison next week -need to change positions very slow when ambulating amlodipine was increased to 10 as bp was elevated now with pt/ot now hypotensive will give 250 ml of NS and monitor closely decrease amlodipine back to 5mg as she was on before (2) Dehydration: Code(s): E86.0 - Dehydration Status: Acute Assessment and Plan: Continue IV fluid hydration normal saline at 75 mL/hour Trended monitor labs and vital signs. (3) Elbow injury: Code(s): S59.909A - Unspecified injury of unspecified elbow, initial encounter Status: Acute Assessment and Plan: As noted x-ray of right elbow suggest a ?possible? fracture of the right radial head and clinical correlation is recommended. There was no acute clinical correlation will findings of a fracture as patient does not have pain, swelling, and has preserved active range of motion. Patient her son who was at the bedside at the time of ER assessment or offered CT imaging and they declined. (4) History of fall: Code(s): Z91.81 - History of falling Status: Acute Assessment and Plan: Witnessed fall this evening. Fall precautions -pt/ot ordered awaiting PT/OT eval (5) COPD (chronic obstructive pulmonary disease): Qualifiers: COPD type: emphysema Emphysema type: panlobular Qualified Code(s): J43.1 - Panlobular emphysema Code(s): J44.9 - Chronic obstructive pulmonary disease, unspecified Status: Chronic Assessment and Plan: Continue home medication of Bevespi or pharmacy alternative if not on formulary. Trend vitals P.r.n. albuterol (6) Dementia: Qualifiers: Dementia type: Alzheimer's Alzheimer's disease onset: early onset Dementia severity: moderate Dementia behavioral or psychological symptom: without behavioral, psychotic, or mood disturbance or anxiety Qualified Code(s): G30.0 - Alzheimer's disease with early onset; F02.B0 - Dementia in other diseases classified elsewhere, moderate, without behavioral disturbance, psychotic disturbance, mood disturbance, and anxiety Code(s): F03.90 - Unspecified dementia, unspecified severity, without behavioral disturbance, psychotic disturbance, mood disturbance, and anxiety Status: Chronic Assessment and Plan: Provide for safety (7) History of essential hypertension: Code(s): Z86.79 - Personal history of other diseases of the circulatory system Status: Chronic Assessment and Plan: Continue home medications of losartan 50 mg daily, clonidine 0.1 mg 1st systolic blood pressure over 180 and sustained diastolic blood pressure over 100, and amlodipine 5 mg daily Monitoring trend blood pressures Time Spent With Patient Time with patient: 25 - 35 minutes Subjective Date/time seen: 03/30/25 11:41 Interval history: 84 year old female pt who is a resident at [facility] w/[facility] of COPD, hypertension, dementia, thyroid cancer, CVA, chronic dizziness depression was brought to the emergency room after a witnessed syncopal episode. She had been dizzy for years and states that extensive workup had been done with not much results. Per her granddaughter, she doensot eat much, as her appetite is diminished and she does not drink much either. She was diagnosed with stage 4 thyroid ca and pt and family decided not to do any treatment at this point as pt is too weak to tolerate chemo. She denies headache currently, rt elbow is hurting a bit but tolerable. NO n/v/d. 03/29- pt is seen and examined. She denies any pain. Still dizzy, worse with position change and if pt gets anxious, which she had been. 03/30 pt is working with PT/OT. BP was elevated so amlodipine dose was increased and now bp is low. will decrease back to original dose. pt is confused but her baseline, pain free. Review of Systems Review of Systems: All systems reviewed & are unremarkable except as noted in HPI and below ROS unobtainable: Yes unobtainable due to mental status (Dementia) Exam Const: General: comfortable and no acute distress Other: She is pleasantly confused that is her baseline HENMT: Face/Nose/Sinus: Normal nares present Mouth: Yes moist mucous membranes Eyes: General: appearance normal, both eyes and all related structures Sclera: sclerae normal Pupils: Equal, round and reactive pupils present EOM: EOMs intact bilaterally Neck: Neck: supple and no JVD Lymphatic: lymphadenopathy not noted Chest: Other: Nontender to palpation Resp: Effort & Inspection: normal respiratory effort Auscultation: clear to auscultation bilaterally Cardio: Rate: regular rate Rhythm: regular rhythm Heart sounds: no gallops, no murmurs and no rubs GI: Inspection: non-distended Auscultation: normal bowel sounds Skin: General skin exam: normal color, rashes and/or lesions noted, no erythema, No lesion, No rashes and wounds noted (Right elbow skin tear with Steri-Strips in place.) Lesions: no lesions noted Rashes: no rashes noted Wounds: wounds noted (Right elbow skin tear with Steri-Strips in place.) Neuro: Cranial nerves: Yes Equal, round and reactive pupils present Speech: normal speech Motor exam (neuro): Normal motor muscle tone present throughout and Abnormal motor strength present (Generalized weakness) Other: Alert oriented to self only. Extrem: Other: Skin tear wound to right elbow otherwise unremarkable Psych: Affect: normal affect Other: she is occasionally confused. h/o dementia-her baseline Objective Data Vital Signs Vital Signs: Vital Signs - 24 hr 03/29/25 12:00 03/29/25 14:00 03/29/25 16:00 Temperature 98.2 F Pulse Rate 78 74 63 Respiratory Rate 18 Blood Pressure 109/60 Pulse Oximetry 97 Oxygen Delivery Fraction of Inspired Oxygen 03/29/25 20:00 03/29/25 20:00 03/29/25 22:00 Temperature 98.2 F Pulse Rate 72 70 72 Respiratory Rate 28 H 28 H Blood Pressure 129/58 L Pulse Oximetry 94 94 Oxygen Delivery Room Air Fraction of Inspired Oxygen 21 03/30/25 00:00 03/30/25 04:00 03/30/25 06:00 Temperature 98.1 F Pulse Rate 71 63 68 Respiratory Rate 24 H Blood Pressure 130/72 Pulse Oximetry 93 Oxygen Delivery Fraction of Inspired Oxygen 03/30/25 08:20 03/30/25 08:20 03/30/25 09:08 Temperature Pulse Rate Respiratory Rate Blood Pressure Pulse Oximetry 95 Oxygen Delivery Room Air Room Air Room Air Fraction of Inspired Oxygen 03/30/25 09:34 Temperature Pulse Rate 79 Respiratory Rate Blood Pressure 81/53 L Pulse Oximetry 96 Oxygen Delivery Fraction of Inspired Oxygen Intake/Output Intake/Output: Intake & Output 03/27/25 03/28/25 03/29/25 03/30/25 23:59 23:59 23:59 23:59 Intake Total 1000 4000 590 837 Output Total 75 1900 200 Balance 925 2100 390 837 Meds/Results Medications: Active Medications Generic Name Dose Route Start Last Admin Trade Name Freq PRN Reason Stop Dose Admin Acetaminophen 325 mg 03/28/25 02:44 Acetaminophen 325 Mg Tablet PO Q6H PRN fever or pain Albuterol 2 puff 03/28/25 02:44 Albuterol Sulfate (*Sp) Aerosol 1 Puff INHALATION Q4HRT PRN shortness of breath or wheezing Alendronate Sodium 70 mg 04/02/25 09:00 Alendronate Sodium 70 Mg Tablet PO WEEKLY ANAT Amlodipine Besylate 5 mg 03/31/25 09:00 Amlodipine Besylate 5 Mg Tablet PO DAILY ANAT Aspirin 81 mg 03/28/25 09:00 03/30/25 08:27 Aspirin 81 Mg Enteric Tablet PO 81 mg DAILY ANAT Administration Clonidine HCl 0.1 mg 03/28/25 09:00 Clonidine Hcl 0.1 Mg Tablet PO DAILY PRN sustained high blood pressure Diphenhydramine HCl 25 mg 03/28/25 02:44 03/29/25 22:13 Diphenhydramine Hcl Cap 25 Mg Capsule PO 25 mg QHS PRN Administration Insomnia Escitalopram Oxalate 10 mg 03/28/25 09:00 03/30/25 08:27 Escitalopram Oxalate 10 Mg Tablet PO 10 mg DAILY ANAT Administration Hydroxyzine HCl 25 mg 03/29/25 12:58 Hydroxyzine Hcl 25 Mg Tablet PO Q6H PRN Anxiety Ceftriaxone Sodium 1 gm in 50 mls @ 100 mls/hr 03/28/25 21:00 03/29/25 22:43 Rocephin 1 Gm/Ns 50 Ml IVPB Infused Q24H ANAT Infusion Losartan Potassium 50 mg 03/28/25 09:00 03/30/25 08:36 Losartan Potassium 25 Mg Tablet PO 50 mg DAILY ANAT Administration Melatonin 5 mg 03/28/25 21:00 03/29/25 22:13 Melatonin 5 Mg Tablet PO 5 mg HS ANAT Administration Pantoprazole Sodium 40 mg 03/28/25 09:00 03/30/25 08:27 Pantoprazole 40 Mg Tablet PO 40 mg QAM ANAT Administration Rivastigmine 1 patch 03/28/25 09:00 03/30/25 08:43 Rivastigmine Tartrate 4.6 Mg Patch TRANSDERM 1 patch DAILY ANAT Administration Triamcinolone Acetonide 1 applic 03/28/25 09:00 03/30/25 08:44 Triamcinolone Acet 0.1% Oint 15 Gm Tube TOPICAL 1 applic Q12HR ANAT Administration Umeclidinium/Vilanterol 1 puff 03/28/25 08:00 03/30/25 08:19 Umeclidinium/Vilanterol 62.5-25 Mcg Ellipta INHALATION 1 puff DAILYRT ANAT Administration Vitamin D 25 mcg 03/28/25 09:00 03/30/25 08:27 Cholecalciferol (Vitamin D3) 25 Mcg (1,000 Units) Tablet PO 25 mcg DAILY ANAT Administration Radiology Results: ITS Impressions Chest X-Ray 03/27/25 16:38 IMPRESSION: No acute cardiopulmonary pathology. Venous Doppler Study 03/27/25 21:23 IMPRESSION: Negative right lower extremity venous US. No deep vein thrombosis. Elbow X-Ray 03/27/25 22:10 IMPRESSION: Possible fracture in the radial head laterally. Clinical correlation and follow-up advised. Head CT 03/27/25 22:14 IMPRESSION: No acute intracranial findings. Cervical Spine CT 03/27/25 22:21 IMPRESSION: No acute osseous abnormality cervical spine. Postoperative changes in the spine. Pleural-based nodule on the left upper lobe unchanged from previous examination Quality VTE Prophylaxis VTE prophylaxis: mechanical ordered
[2025-03-30] MEDS: SODIUM CHLORIDE 0.9% IV 1,000 ML 250 ML IV CONT (12:31)
[2025-03-30] MEDS: ACETAMINOPHEN 325 MG TABLET PO (13:57)
[2025-03-30] MEDS: MELATONIN 5 MG TABLET PO (20:43)
[2025-03-31] VITALS (10 sets, daily range): BP systolic 115–154; BP diastolic 70–76; PULSE 64–84; RESP 16–18; TEMP 36.2–36.9; O2SAT 96–100
[2025-03-31] MEDS: ESCITALOPRAM OXALATE 10 MG TABLET PO (08:29)
[2025-03-31] MEDS: ASPIRIN 81 MG ENTERIC TABLET PO (08:29)
[2025-03-31] MEDS: CHOLECALCIFEROL (VITAMIN D3) 25 MCG (1,000 UNITS) TABLET PO (08:29)
[2025-03-31] MEDS: PANTOPRAZOLE 40 MG TABLET PO (08:30)
[2025-03-31] MEDS: RIVASTIGMINE TARTRATE 4.6 MG PATCH 1 PATCH TRANSDERM (08:34)
--- NOTE | 2025-03-31 14:03 | P.DS_ITS ---
DS: Discharge Diagnosis Discharge Diagnosis (1) Syncope: Qualifiers: Syncope type: unspecified Qualified Code(s): R55 - Syncope and collapse Code(s): R55 - Syncope and collapse Status: Acute Assessment and Plan: * Witnessed event * Etiology uncertain. * Fall precautions * CT head without any acute abnormalities. * Concern for mild dehydration given the patient was held and humid summer evening dressed for winter with mild orthostatic pulse. No orthostatic blood pressure. * Normal EKG * Telemetry * Trend and monitor labs and vital signs. -orthostatics ordered some drop in BP, pulse unchanged will stop IV fluids as pt is drinking and eating ok very likely cause for dizziness if thyroid ca for which pt is going to have discussion of care with her ear nose and throat specialist next week -need to change positions very slow when ambulating amlodipine was increased to 10 as bp was elevated now with pt/ot now hypotensive will give 250 ml of NS and monitor closely decrease amlodipine back to 5mg as she was on before (2) Dehydration: Code(s): E86.0 - Dehydration Status: Acute Assessment and Plan: * Continue IV fluid hydration normal saline at 75 mL/hour * Trended monitor labs and vital signs. (3) Elbow injury: Code(s): S59.909A - Unspecified injury of unspecified elbow, initial encounter Status: Acute Assessment and Plan: * As noted x-ray of right elbow suggest a ?possible? fracture of the right radial head and clinical correlation is recommended. There was no acute clinical correlation will findings of a fracture as patient does not have pain, swelling, and has preserved active range of motion. Patient her son who was at the bedside at the time of ER assessment or offered CT imaging and they declined. (4) History of fall: Code(s): Z91.81 - History of falling Status: Acute Assessment and Plan: * Witnessed fall this evening. * Fall precautions * -pt/ot ordered * * awaiting PT/OT eval (5) COPD (chronic obstructive pulmonary disease): Qualifiers: COPD type: emphysema Emphysema type: panlobular Qualified Code(s): J43.1 - Panlobular emphysema Code(s): J44.9 - Chronic obstructive pulmonary disease, unspecified Status: Chronic Assessment and Plan: * Continue home medication of Bevespi or pharmacy alternative if not on formulary. * Trend vitals * P.r.n. albuterol (6) Dementia: Qualifiers: Alzheimer's disease onset: early onset Dementia behavioral or psychological symptom: without behavioral, psychotic, or mood disturbance or anxiety Dementia severity: moderate Dementia type: Alzheimer's Qualified Code(s): G30.0 - Alzheimer's disease with early onset; F02.B0 - Dementia in other diseases classified elsewhere, moderate, without behavioral disturbance, psychotic disturbance, mood disturbance, and anxiety Code(s): F03.90 - Unspecified dementia, unspecified severity, without behavioral disturbance, psychotic disturbance, mood disturbance, and anxiety Status: Chronic Assessment and Plan: * Provide for safety (7) History of essential hypertension: Code(s): Z86.79 - Personal history of other diseases of the circulatory system Status: Chronic Assessment and Plan: * Continue home medications of losartan 50 mg daily, clonidine 0.1 mg 1st systolic blood pressure over 180 and sustained diastolic blood pressure over 100, and amlodipine 5 mg daily * Monitoring trend blood pressures DS: Summary Hospital Course Hospital Course: 84 year old female pt who is a resident at [facility] w/[facility] of COPD, hypertension, dementia, thyroid cancer, CVA, chronic dizziness depression was brought to the emergency room after a witnessed syncopal episode. She had been dizzy for years and states that extensive workup had been done with not much results. Per her granddaughter, she doensot eat much, as her appetite is diminished and she does not drink much either. She was diagnosed with stage 4 thyroid ca and pt and family decided not to do any treatment at this point as pt is too weak to tolerate chemo. She denies headache currently, rt elbow is hurting a bit but tolerable. NO n/v/d. several issues were addressed: # Syncope: * Witnessed event * Etiology uncertain but very liekly due to stage 4 thyroid cancer. Pt has an kush coming up with endocrinology * Fall precautions * CT head without any acute abnormalities. * Concern for mild dehydration given the patient was held and humid summer evening dressed for winter with mild orthostatic pulse. No orthostatic blood pressure. * Normal EKG * pt was on telemetry with no arrhythmias -orthostatics showed some drop in BP, pulse unchanged -need to change positions very slow when ambulating amlodipine was increased to 10 as bp was elevated on 03/29 pt/ot now hypotensive on 03/30- she will given 250 ml of NS and monitor closely decreased amlodipine back to 5mg as she was on before- continue therapy Status at Discharge Functional status at discharge: uses cane/walker Overall status at discharge: patient is progressing back to baseline Time Spent with Patient Time attestation: Total time spent providing and/or coordinating discharge services: Time spent: Greater than 30 minutes Exam Const: General: comfortable and no acute distress Other: She is pleasantly confused that is her baseline HENMT: Face/Nose/Sinus: Normal nares present Mouth: Yes moist mucous membranes Eyes: General: appearance normal, both eyes and all related structures Sclera: sclerae normal Pupils: Equal, round and reactive pupils present EOM: EOMs intact bilaterally Neck: Neck: supple and no JVD Lymphatic: lymphadenopathy not noted Chest: Other: Nontender to palpation Resp: Effort & Inspection: normal respiratory effort Auscultation: clear to auscultation bilaterally Cardio: Rate: regular rate Rhythm: regular rhythm Heart sounds: no gallops, no murmurs and no rubs GI: Inspection: non-distended Auscultation: normal bowel sounds Skin: General skin exam: normal color, rashes and/or lesions noted, no erythema, No lesion, No rashes and wounds noted (Right elbow skin tear with Steri-Strips in place.) Lesions: no lesions noted Rashes: no rashes noted Wounds: wounds noted (Right elbow skin tear with Steri-Strips in place.) Neuro: Cranial nerves: Yes Equal, round and reactive pupils present Speech: normal speech Motor exam (neuro): Normal motor muscle tone present throughout and Abnormal motor strength present (Generalized weakness) Other: Alert oriented to self only. Extrem: Other: Skin tear wound to right elbow otherwise unremarkable Psych: Affect: normal affect Other: she is occasionally confused. h/o dementia-her baseline DS: Data Data Completed and Pending Labs on day of discharge: Preliminary micro results at discharge 03/28/25 00:59 Blood Culture - Preliminary Blood 03/28/25 00:59 Blood Culture - Preliminary Blood Discharge Plan Discharge Patient Language: Vietnamese Discharge Medications: No Action aspirin [Adult Aspirin Regimen] 81 mg tablet,delayed release (DR/EC) 81 mg PO DAILY melatonin 5 mg tablet 5 mg PO HS Patient Comments: 5mg (1 tablet every evening) diphenhydramine HCl [Allergy Relief(diphenhydramin)] 25 mg capsule 25 mg PO .PRN PRN (Reason: Sleep) Patient Comments: Only give PRN- not daily acetaminophen 325 mg tablet 325 mg PO Q6H PRN (Reason: fever or pain) Bevespi Aerosphere 9-4.8 mcg HFA aerosol inhaler 2 puff inhalation BID Qty: 10.7 3RF albuterol sulfate 90 mcg/actuation HFA aerosol inhaler 2 inh inhalation Q4H PRN (Reason: shortness of breath or wheezing) Qty: 8.5 2RF losartan 25 mg tablet 50 mg PO DAILY Qty: 90 1RF triamcinolone acetonide 0.1 % ointment 1 applic topical BID Qty: 30 0RF Rx Instructions: PLEASE ASSIST PATIENT WITH APPLICATION EDUCATION amlodipine 5 mg tablet 5 mg PO DAILY Qty: 90 1RF escitalopram oxalate 10 mg tablet 10 mg PO DAILY Qty: 90 1RF cholecalciferol (vitamin D3) 25 mcg (1,000 unit) tablet 25 mcg PO DAILY alendronate [Fosamax] 70 mg tablet 70 mg PO WEEKLY Qty: 12 0RF Patient Comments: patient takes on monday omeprazole 20 mg capsule,delayed release(DR/EC) 20 mg PO DAILY Qty: 90 0RF rivastigmine 4.6 mg/24 hour patch 24 hour 1 patch transdermal DAILY Qty: 30 5RF clonidine HCl 0.1 mg tablet See Rx Instructions PO DAILY Qty: 10 1RF Rx Instructions: give 1 tablet orally for sustained systolic blood pressure over 180 and or sustained diastolic blood pressure at her over 100. Date of admission: 03/30/25 14:07 Primary Care Provider: Noam Cleveland Admitting Provider: Lorin Garrett Attending physician on admission: Lorin Garrett Condition: Stable Quality VTE Prophylaxis VTE prophylaxis: mechanical ordered
--- NOTE | 2025-03-31 14:11 | PM.IMPN ---
Progress Note: A&P Assessment and Plan (1) Syncope: Qualifiers: Syncope type: unspecified Qualified Code(s): R55 - Syncope and collapse Code(s): R55 - Syncope and collapse Status: Acute Assessment and Plan: Witnessed event Etiology uncertain. Fall precautions CT head without any acute abnormalities. Concern for mild dehydration given the patient was held and humid summer evening dressed for winter with mild orthostatic pulse. No orthostatic blood pressure. Normal EKG Telemetry Trend and monitor labs and vital signs. 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 (3) Elbow injury: Code(s): S59.909A - Unspecified injury of unspecified elbow, initial encounter Status: Acute Assessment and Plan: As noted x-ray of right elbow suggest a ?possible? fracture of the right radial head and clinical correlation is recommended. There was no acute clinical correlation will findings of a fracture as patient does not have pain, swelling, and has preserved active range of motion. Patient her son who was at the bedside at the time of ER assessment or offered CT imaging and they declined. (4) History of fall: Code(s): Z91.81 - History of falling Status: Acute Assessment and Plan: Witnessed fall this evening. Fall precautions -pt/ot ordered awaiting PT/OT eval (5) COPD (chronic obstructive pulmonary disease): Qualifiers: COPD type: emphysema Emphysema type: panlobular Qualified Code(s): J43.1 - Panlobular emphysema Code(s): J44.9 - Chronic obstructive pulmonary disease, unspecified Status: Chronic Assessment and Plan: Continue home medication of Bevespi or pharmacy alternative if not on formulary. Trend vitals P.r.n. albuterol (6) Dementia: Qualifiers: Dementia type: Alzheimer's Alzheimer's disease onset: early onset Dementia severity: moderate Dementia behavioral or psychological symptom: without behavioral, psychotic, or mood disturbance or anxiety Qualified Code(s): G30.0 - Alzheimer's disease with early onset; F02.B0 - Dementia in other diseases classified elsewhere, moderate, without behavioral disturbance, psychotic disturbance, mood disturbance, and anxiety Code(s): F03.90 - Unspecified dementia, unspecified severity, without behavioral disturbance, psychotic disturbance, mood disturbance, and anxiety Status: Chronic Assessment and Plan: Provide for safety (7) History of essential hypertension: Code(s): Z86.79 - Personal history of other diseases of the circulatory system Status: Chronic Assessment and Plan: Continue home medications of losartan 50 mg daily, clonidine 0.1 mg 1st systolic blood pressure over 180 and sustained diastolic blood pressure over 100, and amlodipine 5 mg daily Monitoring trend blood pressures Time Spent With Patient Time with patient: 25 - 35 minutes Subjective Date/time seen: 03/31/25 14:11 Interval history: 84 year old female pt who is a resident at [facility] w/[facility] of COPD, hypertension, dementia, thyroid cancer, CVA, chronic dizziness depression was brought to the emergency room after a witnessed syncopal episode. She had been dizzy for years and states that extensive workup had been done with not much results. Per her granddaughter, she doensot eat much, as her appetite is diminished and she does not drink much either. She was diagnosed with stage 4 thyroid ca and pt and family decided not to do any treatment at this point as pt is too weak to tolerate chemo. She denies headache currently, rt elbow is hurting a bit but tolerable. NO n/v/d. 03/29- pt is seen and examined. She denies any pain. Still dizzy, worse with position change and if pt gets anxious, which she had been. 03/30 pt is working with PT/OT. BP was elevated so amlodipine dose was increased and now bp is low. will decrease back to original dose. pt is confused but her baseline, pain free. 03/31 doing well. stable, no acute events. were going to be discharged today but her facility cannot get her today and no family members available to transport her. anticipate discharge tomorrow. Review of Systems Review of Systems: All systems reviewed & are unremarkable except as noted in HPI and below ROS unobtainable: Yes unobtainable due to mental status (Dementia) Exam Const: General: comfortable and no acute distress Other: She is pleasantly confused that is her baseline HENMT: Face/Nose/Sinus: Normal nares present Mouth: Yes moist mucous membranes Eyes: General: appearance normal, both eyes and all related structures Sclera: sclerae normal Pupils: Equal, round and reactive pupils present EOM: EOMs intact bilaterally Neck: Neck: supple and no JVD Lymphatic: lymphadenopathy not noted Chest: Other: Nontender to palpation Resp: Effort & Inspection: normal respiratory effort Auscultation: clear to auscultation bilaterally Cardio: Rate: regular rate Rhythm: regular rhythm Heart sounds: no gallops, no murmurs and no rubs GI: Inspection: non-distended Auscultation: normal bowel sounds Skin: General skin exam: normal color, rashes and/or lesions noted, no erythema, No lesion, No rashes and wounds noted (Right elbow skin tear with Steri-Strips in place.) Lesions: no lesions noted Rashes: no rashes noted Wounds: wounds noted (Right elbow skin tear with Steri-Strips in place.) Neuro: Cranial nerves: Yes Equal, round and reactive pupils present Speech: normal speech Motor exam (neuro): Normal motor muscle tone present throughout and Abnormal motor strength present (Generalized weakness) Other: Alert oriented to self only. Extrem: Other: Skin tear wound to right elbow otherwise unremarkable Psych: Affect: normal affect Other: she is occasionally confused. h/o dementia-her baseline Objective Data Vital Signs Vital Signs: Vital Signs - 24 hr 03/30/25 16:00 03/30/25 20:00 03/30/25 22:00 Temperature 97.4 F L Pulse Rate 71 69 69 Respiratory Rate 20 Blood Pressure 122/55 L Pulse Oximetry 98 Oxygen Delivery 03/31/25 00:00 03/31/25 04:00 03/31/25 06:00 Temperature 97.2 F L Pulse Rate 67 74 66 Respiratory Rate 18 Blood Pressure 124/71 Pulse Oximetry 99 Oxygen Delivery 03/31/25 08:00 03/31/25 08:00 03/31/25 08:37 Temperature Pulse Rate 82 Respiratory Rate Blood Pressure 115/70 Pulse Oximetry 99 Oxygen Delivery Room Air 03/31/25 12:00 Temperature Pulse Rate 84 Respiratory Rate Blood Pressure Pulse Oximetry Oxygen Delivery Intake/Output Intake/Output: Intake & Output 03/28/25 03/29/25 03/30/25 03/31/25 23:59 23:59 23:59 23:59 Intake Total 4000 590 1799 480 Output Total 1900 200 Balance 2100 390 1799 480 Meds/Results Medications: Active Medications Generic Name Dose Route Start Last Admin Trade Name Freq PRN Reason Stop Dose Admin Acetaminophen 325 mg 03/28/25 02:44 03/30/25 13:57 Acetaminophen 325 Mg Tablet PO 325 mg Q6H PRN Administration fever or pain Albuterol 2 puff 03/28/25 02:44 Albuterol Sulfate (*Sp) Aerosol 1 Puff INHALATION Q4HRT PRN shortness of breath or wheezing Alendronate Sodium 70 mg 04/02/25 09:00 Alendronate Sodium 70 Mg Tablet PO WEEKLY [facility] Amlodipine Besylate 5 mg 03/31/25 09:00 03/31/25 11:43 Amlodipine Besylate 5 Mg Tablet PO Not Given DAILY [facility] Aspirin 81 mg 03/28/25 09:00 03/31/25 08:29 Aspirin 81 Mg Enteric Tablet PO 81 mg DAILY ANAT Administration Cephalexin HCl 500 mg 03/31/25 21:00 Cephalexin 500 Mg Capsule PO 04/04/25 09:01 Q12HR ANAT Clonidine HCl 0.1 mg 03/28/25 09:00 Clonidine Hcl 0.1 Mg Tablet PO DAILY PRN sustained high blood pressure Diphenhydramine HCl 25 mg 03/28/25 02:44 03/29/25 22:13 Diphenhydramine Hcl Cap 25 Mg Capsule PO 25 mg QHS PRN Administration Insomnia Escitalopram Oxalate 10 mg 03/28/25 09:00 03/31/25 08:29 Escitalopram Oxalate 10 Mg Tablet PO 10 mg DAILY ANAT Administration Hydroxyzine HCl 25 mg 03/29/25 12:58 Hydroxyzine Hcl 25 Mg Tablet PO Q6H PRN Anxiety Losartan Potassium 50 mg 03/28/25 09:00 03/31/25 11:43 Losartan Potassium 25 Mg Tablet PO Not Given DAILY ANAT Melatonin 5 mg 03/28/25 21:00 03/30/25 20:43 Melatonin 5 Mg Tablet PO 5 mg HS ANAT Administration Pantoprazole Sodium 40 mg 03/28/25 09:00 03/31/25 08:30 Pantoprazole 40 Mg Tablet PO 40 mg QAM ANAT Administration Rivastigmine 1 patch 03/28/25 09:00 03/31/25 08:34 Rivastigmine Tartrate 4.6 Mg Patch TRANSDERM 1 patch DAILY ANAT Administration Triamcinolone Acetonide 1 applic 03/28/25 09:00 03/31/25 11:08 Triamcinolone Acet 0.1% Oint 15 Gm Tube TOPICAL Not Given Q12HR ANAT Umeclidinium/Vilanterol 1 puff 03/28/25 08:00 03/30/25 08:19 Umeclidinium/Vilanterol 62.5-25 Mcg Ellipta INHALATION 1 puff DAILYRT ANAT Administration Vitamin D 25 mcg 03/28/25 09:00 03/31/25 08:29 Cholecalciferol (Vitamin D3) 25 Mcg (1,000 Units) Tablet PO 25 mcg DAILY ANAT Administration Radiology Results: ITS Impressions Chest X-Ray 03/27/25 16:38 IMPRESSION: No acute cardiopulmonary pathology. Venous Doppler Study 03/27/25 21:23 IMPRESSION: Negative right lower extremity venous US. No deep vein thrombosis. Elbow X-Ray 03/27/25 22:10 IMPRESSION: Possible fracture in the radial head laterally. Clinical correlation and follow-up advised. Head CT 03/27/25 22:14 IMPRESSION: No acute intracranial findings. Cervical Spine CT 03/27/25 22:21 IMPRESSION: No acute osseous abnormality cervical spine. Postoperative changes in the spine. Pleural-based nodule on the left upper lobe unchanged from previous examination Quality VTE Prophylaxis VTE prophylaxis: mechanical ordered
[2025-03-31] MEDS: MELATONIN 5 MG TABLET PO (20:54)
[2025-03-31] MEDS: TRIAMCINOLONE ACET 0.1% OINT 15 GM TUBE 1 APPLIC TOPICAL (20:54)
[2025-03-31] MEDS: CEPHALEXIN 500 MG CAPSULE PO (20:54)
[2025-04-01] VITALS: PULSE 65
[2025-04-01 04:00] VITALS: PULSE 58
[2025-04-01 06:00] VITALS: BP 159/99; PULSE 72; RESP 20; TEMP 36.8; O2SAT 97
[2025-04-01 08:00] VITALS: PULSE 70
[2025-04-01] MEDS: PANTOPRAZOLE 40 MG TABLET PO (08:35)
[2025-04-01] MEDS: CEPHALEXIN 500 MG CAPSULE PO (08:35)
[2025-04-01] MEDS: CHOLECALCIFEROL (VITAMIN D3) 25 MCG (1,000 UNITS) TABLET PO (08:35)
[2025-04-01] MEDS: LOSARTAN POTASSIUM 25 MG TABLET 50 MG PO (08:35)
[2025-04-01] MEDS: ESCITALOPRAM OXALATE 10 MG TABLET PO (08:35)
[2025-04-01] MEDS: ASPIRIN 81 MG ENTERIC TABLET PO (08:35)
[2025-04-01] MEDS: TRIAMCINOLONE ACET 0.1% OINT 15 GM TUBE 1 APPLIC TOPICAL (08:36)
[2025-04-01] MEDS: RIVASTIGMINE TARTRATE 4.6 MG PATCH 1 PATCH TRANSDERM (08:40)
--- NOTE | 2025-04-01 09:44 | P.DS_ITS ---
DS: Admitting Diagnosis Discharge Date 04/01 Admitting Diagnosis dizzy DS: Discharge Diagnosis Discharge Diagnosis (1) Syncope: Qualifiers: Syncope type: unspecified Qualified Code(s): R55 - Syncope and collapse Code(s): R55 - Syncope and collapse Status: Acute (2) Dehydration: Code(s): E86.0 - Dehydration Status: Acute (3) Elbow injury: Code(s): S59.909A - Unspecified injury of unspecified elbow, initial encounter Status: Acute (4) History of fall: Code(s): Z91.81 - History of falling Status: Acute (5) COPD (chronic obstructive pulmonary disease): Qualifiers: COPD type: emphysema Emphysema type: panlobular Qualified Code(s): J 43.1 - Panlobular emphysema Code(s): J44.9 - Chronic obstructive pulmonary disease, unspecified Status: Chronic (6) Dementia: Qualifiers: Dementia type: Alzheimer's Alzheimer's disease onset: early onset Dementia severity: moderate Dementia behavioral or psychological symptom: without behavioral, psychotic, or mood disturbance or anxiety Qualified Code(s): G30.0 - Alzheimer's disease with early onset; F02.B0 - Dementia in other diseases classified elsewhere, moderate, without behavioral disturbance, psychotic disturbance, mood disturbance, and anxiety Code(s): F03.90 - Unspecified dementia, unspecified severity, without behavioral disturbance, psychotic disturbance, mood disturbance, and anxiety Status: Chronic (7) History of essential hypertension: Code(s): Z86.79 - Personal history of other diseases of the circulatory system Status: Chronic DS: Summary Hospital Course Hospital Course: 84 year old female pt who is a resident at [facility] w/[facility] of COPD, hypertension, dementia, thyroid cancer, CVA, chronic dizziness depression was brought to the emergency room after a witnessed syncopal episode. She had been dizzy for years and states that extensive workup had been done with not much results. Per her granddaughter, she doesnot eat much, as her appetite is diminished and she does not drink much either. She was diagnosed with stage 4 thyroid ca and pt and family decided not to do any treatment at this point as pt is too weak to tolerate chemo. She denies headache currently, rt elbow is hurting a bit but tolerable. NO n/v/d. Pt has stage 4 thyroid ca that very likely causing dizzies sand fluctuation in BP. She is going to f/u with endocrinology next week. BP needs to be checked daily to ensure it is stable. While here, her bp was somewhat elevated, so amlodipine dose was increased from 5 to 10 and it cause a drop in bp so the dose is back to her original and she had been stable on it. * Continue home medications of losartan 50 mg daily, clonidine 0.1 mg - for systolic blood pressure over 180 and sustained diastolic blood pressure over 100 and amlodipine 5 mg daily. She worked with PT/.OT and did well. She will need to use her walker with ambulation for stability and balance. Pt was given IV fluid for dehydration. She was stable for discharge last night but there was issues with ride so discharge was postponed till this am. She is alert, somewhat confused at times-but her baseline- pleasant. Stable for discharge. Status at Discharge Functional status at discharge: uses cane/walker Overall status at discharge: patient is progressing back to baseline Time Spent with Patient Time attestation: Total time spent providing and/or coordinating discharge services: Time spent: Greater than 30 minutes Exam Const: General: comfortable Chest: Other: Nontender to palpation Resp: Effort & Inspection: normal respiratory effort Auscultation: clear to auscultation bilaterally Cardio: Rate: regular rate Rhythm: regular rhythm GI: GI Palp: Yes Soft to palpation Skin: General skin exam: normal color Other: bruise to rt elbow noted-healing Neuro: Sensory Exam: normal sensation Other: Alert oriented to self, place and year Extrem: Other: Skin tear wound to right elbow otherwise unremarkable Psych: Affect: normal affect Other: she is occasionally confused. h/o dementia-her baseline DS: Data Data Completed and Pending Labs on day of discharge: Preliminary micro results at discharge 03/28/25 00:59 Blood Culture - Preliminary Blood 03/28/25 00:59 Blood Culture - Preliminary Blood Discharge Plan Discharge Attending physician on discharge: Romain Sargent Discharging Clinician: Tara Cowart Patient Disposition: [place] [facility] Activity: january shower Diet: regular Patient Instructions: Antibiotic Form Patient Language: Wolof Stand Alone Forms: General Discharge Information Discharge Medications: Continued aspirin [Adult Aspirin Regimen] 81 mg tablet,delayed release (DR/EC) 81 mg PO DAILY melatonin 5 mg tablet 5 mg PO HS Patient Comments: 5mg (1 tablet every evening) diphenhydramine HCl [Allergy Relief(diphenhydramin)] 25 mg capsule 25 mg PO .PRN PRN (Reason: Sleep) Patient Comments: Only give PRN- not daily acetaminophen 325 mg tablet 325 mg PO Q6H PRN (Reason: fever or pain) Bevespi Aerosphere 9-4.8 mcg HFA aerosol inhaler 2 puff inhalation BID Qty: 10.7 3RF albuterol sulfate 90 mcg/actuation HFA aerosol inhaler 2 inh inhalation Q4H PRN (Reason: shortness of breath or wheezing) Qty: 8.5 2RF losartan 25 mg tablet 50 mg PO DAILY Qty: 90 1RF triamcinolone acetonide 0.1 % ointment 1 applic topical BID Qty: 30 0RF Rx Instructions: PLEASE ASSIST PATIENT WITH APPLICATION EDUCATION amlodipine 5 mg tablet 5 mg PO DAILY Qty: 90 1RF escitalopram oxalate 10 mg tablet 10 mg PO DAILY Qty: 90 1RF cholecalciferol (vitamin D3) 25 mcg (1,000 unit) tablet 25 mcg PO DAILY alendronate [Fosamax] 70 mg tablet 70 mg PO WEEKLY Qty: 12 0RF Patient Comments: patient takes on monday omeprazole 20 mg capsule,delayed release(DR/EC) 20 mg PO DAILY Qty: 90 0RF rivastigmine 4.6 mg/24 hour patch 24 hour 1 patch transdermal DAILY Qty: 30 5RF clonidine HCl 0.1 mg tablet See Rx Instructions PO DAILY Qty: 10 1RF Rx Instructions: give 1 tablet orally for sustained systolic blood pressure over 180 and or sustained diastolic blood pressure at her over 100. Date of admission: 03/30/25 14:07 Primary Care Provider: Noam Cleveland Admitting Provider: Lorin Garrett Attending physician on admission: Lorin Garrett Condition: Stable Quality VTE Prophylaxis VTE prophylaxis: mechanical ordered Hospitalist MIPS Heart Failure (Exclusion) Patient has history of Heart Transplant or Left Ventricular Assistive Device?: No IF YES, STOP HERE Heart Failure (Qualifier) Patient has current or prior documentation of LVEF less than or equal to 40%, or mod/servere depressed LVSF?: No IF NO, STOP HERE
[2025-04-01 12:00] VITALS: PULSE 72
[2025-04-01 14:00] VITALS: BP 128/79; PULSE 76; RESP 18; TEMP 36.6; O2SAT 94
== END 2025-04-01 14:45 | DRG 312 ==
LOC: ANHED 03-28 00:19 → ANH3MEDSUR 03-28 00:56
PROVIDERS: Emergency Medicine; Nurse Practitioner Adult Health; Admitting Provider Family Medicine; Emergency Provider Physician Assistant; PCP Internal Medicine; Visit Provider Nurse Practitioner
DX: R55 Syncope and collapse (principal); C73 Malignant neoplasm of thyroid gland; I10 Essential (primary) hypertension; J44.9 Chronic obstructive pulmonary disease, unspecified; E86.0 Dehydration; E55.9 Vitamin D deficiency, unspecified; S59.909A Unspecified injury of unspecified elbow, initial encounter; R42 Dizziness and giddiness; M81.0 Age-related osteoporosis without current pathological fracture; F32.A Depression, unspecified; F03.90 Unspecified dementia, unspecified severity, without behavioral disturbance, psychotic disturbance, mood disturbance, and anxiety; W19.XXXA Unspecified fall, initial encounter; Z86.73 Personal history of transient ischemic attack (TIA), and cerebral infarction without residual deficits; Z79.82 Long term (current) use of aspirin; Z87.891 Personal history of nicotine dependence
CPT/HCPCS: 36415; 70450; 71045; 72125; 73080; 80053; 81001; 82550; 83605; 83735; 83880; 84484; 85025; 85610; 85730; 87040; 87086; 90471; 90715; 93005; 93971; 94640; 96361; 96365; 97116; 97161; 97165; 97530; 99285; A9270; G0378; J0696; J7030